=== PATIENT | male | born 1945 | race Caucasian/White ===

== ENCOUNTER → 2020-11-09 00:16 | Outpatient (CLI) | payer MEDICARE, SELFPAY ==
[2020-11-09 20:39] LABS: SARS-CoV-2 RNA PCR Negative
== END ==
PROVIDERS: PCP Internal Medicine; Visit Provider Internal Medicine Gastroenterology
DX: Z01.812 Encounter for preprocedural laboratory examination (principal); Z20.822 Contact with and (suspected) exposure to COVID-19
CPT/HCPCS: C9803; U0003; U0005

== ENCOUNTER 2020-11-12 01:39 | Day surgery (SDC) | payer MEDICARE, SELFPAY ==
[2020-11-05 15:25] VITALS: BMI 31.1
--- NOTE | 2020-11-12 09:49 | WPDGICN ---
Assessment and Plan Assessment and plan (1) History of colon polyps: Code(s): Z86.010 - Personal history of colonic polyps Status: Acute Assessment and Plan: Patient is a history of colon polyps most recently 6 or 7 years ago. Plan is for surveillance colonoscopy at this time and at intervals in the future. GI Consult Note Consult date/time: 11/12/20 09:49 HPI: Jai Nicole is a 75 year old male Presents for follow-up colonoscopy. Patient has a history of colon polyps most recently 2013. States his current weight appetite bowel movements are normal. He denies abdominal pain. He has had no bleeding. His family history is noncontributory. Review of Systems Review of Systems: All systems reviewed & are unremarkable except as noted in HPI and below PMFSH Social History Social History Smoking status: Current some day smoker Tobacco type: cigars Alcohol intake: current Drinks per week: 3 Substance use type: does not use Living arrangements: with family Spiritual care concerns: No Meds Home Medications and Allergies Home Medications Medication Instructions Recorded Confirmed Type aspirin 81 mg PO DAILY 11/05/20 11/05/20 History atorvastatin 40 mg PO DAILY 11/05/20 11/05/20 History lansoprazole [Prevacid] 15 mg PO DAILY 11/05/20 11/05/20 History lisinopril 20 mg PO DAILY 11/05/20 11/05/20 History sodium,potassium,mag sulfates See Rx Instructions .ROUTE 11/05/20 Rx [Suprep Bowel Prep Kit] .COMPLEX #1 ml Allergies Allergy/AdvReac Type Severity Reaction Status Date / Time No Known Allergies Allergy Unverified 06/23/15 20:44 Exam Narrative: Exam Narrative: Physical exam reveals patient to be alert. Vital signs stable. HEENT exam is unremarkable. Lungs are clear to auscultation and percussion. Heart is without murmur or extra sounds. Abdominal exam bowel sounds are present soft nontender with no organomegaly. Digital external rectal exam is normal.
[2020-11-12 09:52] VITALS: BP 139/73; PULSE 66; RESP 18; TEMP 36.6; O2SAT 99; BMI 29.0
[2020-11-12] MEDS: LACTATED RINGERS 1,000 ML 150 ML IV CONT (10:05)
--- NOTE | 2020-11-12 10:07 | WPDANESEPPF ---
Anes - Initial Pre Proc Eval Procedure: Operation Date: 11/12/20 11:00 Proposed Procedures p Screening Colonoscopy - German Mccarty MD Date/Time: 11/12/20 10:07 Surgeon: German Mccarty MD Pre Op Diagnosis: Neoplasm Screening Patient Data Age: 75 Gender: M Height: 5 ft 7 in Weight: 84.2 kg Last Vital Signs Temp 36.6 C 11/12/20 09:52 Pulse 66 11/12/20 09:52 Resp 18 11/12/20 09:52 BP 139/73 11/12/20 09:52 Pulse Ox 99 11/12/20 09:52 Allergies Allergy/AdvReac Type Severity Reaction Status Date / Time No Known Allergies Allergy Unverified 11/12/20 09:51 Home Medications Medication Instructions Recorded Confirmed Type aspirin 81 mg PO DAILY 11/05/20 11/05/20 History atorvastatin 40 mg PO DAILY 11/05/20 11/05/20 History lansoprazole [Prevacid] 15 mg PO DAILY 11/05/20 11/05/20 History lisinopril 20 mg PO DAILY 11/05/20 11/05/20 History sodium,potassium,mag sulfates See Rx Instructions .ROUTE 11/05/20 Rx [Suprep Bowel Prep Kit] .COMPLEX #1 ml Patient hx anesthesia problems: none Family hx anesthesia problems: none PMFSH Past Medical History Medical History CAD (coronary artery disease) GERD (gastroesophageal reflux disease) HTN (hypertension) Hyperlipidemia Smoker Social History Social History Smoking status: Current some day smoker Tobacco type: cigars Alcohol intake: current Drinks per week: 3 Substance use type: does not use Living arrangements: with family Spiritual care concerns: No Anes - Eval Final PreProcedure Day of Procedure 11/12/20 10:07 Patient weight: overweight Heart: regular rate and rhythm Lungs: clear to auscultation Airway: Mallampati scale class II Neurological: alert and oriented Last oral intake: >/= 8 hours ASA classification: III Emergent: no Anesthetic plan: proceed Anesthesia type and monitoring: general GIVS and standard monitoring Informed Consent: The patient's anesthetic plan and its attendant risks and benefits were discussed with the patient/family/POA. Questions were solicited and answers provided to the satisfaction of the patient/family/POA.
[2020-11-12 11:14] VITALS: BP 97/45; PULSE 60; RESP 17; O2SAT 94
[2020-11-12 11:24] VITALS: BP 109/72; PULSE 63; RESP 20; O2SAT 97
[2020-11-12 11:34] VITALS: BP 119/72; PULSE 60; RESP 20; O2SAT 98
== END 2020-11-12 12:07 | disposition home or self-care (01) ==
PROVIDERS: PCP Internal Medicine; Visit Provider Internal Medicine Gastroenterology
PROC: 0DJD8ZZ Inspection of Lower Intestinal Tract, Via Natural or Artificial Opening Endoscopic (ICD-10-PCS; CPT 45378; principal; 2020-11-12 11:00)
DX: Z12.11 Encounter for screening for malignant neoplasm of colon (principal); D12.3 Benign neoplasm of transverse colon; K57.30 Diverticulosis of large intestine without perforation or abscess without bleeding; K64.8 Other hemorrhoids; Z86.010 Personal history of colon polyps; F17.290 Nicotine dependence, other tobacco product, uncomplicated
CPT/HCPCS: 45385; 88305; C9803; J2704; J7120; U0003; U0005

== ENCOUNTER 2021-03-10 13:36 | Emergency (ER) | payer MEDICARE, SELFPAY ==
--- NOTE | ~2021-03-10 | XR_ITS ---
EXAMINATION: XR chest 2V EXAM DATE: 03/10/2021 14:21 INDICATION: Chest/left arm pain, high blood pressure. TECHNIQUE: Frontal and lateral projections of the chest obtained and reviewed. Comparison is made to prior examination from 06/23/2015. FINDINGS: The lungs are clear. There are no pleural effusions. The cardiomediastinal silhouette is within normal limits. There is no pneumothorax suspected. The bones and soft tissues are unremarkab le. IMPRESSION: No acute cardiopulmonary findings. Reviewed, dictated and finalized at location A.
[2021-03-10 13:46] VITALS: BP 160/70; PULSE 65; RESP 18; TEMP 36.5; O2SAT 99
--- NOTE | 2021-03-10 13:49 | ECG_ITS ---
Measurements Intervals [place] Rate: 59 P: 64 TX: 176 QRS: -69 QRSD: 128 T: 72 QT: 415 QTc: 414 Interpretive Statements SINUS BRADYCARDIA RSR' IN V1 OR V2, CONSIDER RIGHT VENTRICULAR HYPERTROPHY OR RIGHT VCD LEFT ANTERIOR FASCICULAR BLOCK ABNORMAL ECG Electronically Signed On 03-10-2021 21:04:36 CDT by Juan Sandra D.O.
[2021-03-10 13:59] LABS: Basophils Absolute Auto 0.1 K/mm3 (0.0-0.1); Eosinophils Absolute Auto 0.1 K/mm3 (0-0.3); Eosinophils Percent Auto 1.6 % (0-4.4); Hematocrit 49.1 % (42.0-52.0); Hemoglobin 16.3 g/dL (14.0-18.0); Immature Granulocyte Absolute 0.03 K/mm3 (0.00-0.031); Immature Granulocyte Percent A 0.4 % (0-0.5); Lymphocytes Absolute Auto 2.93 K/mm3 (0.9-3.2); Lymphocytes Percent Auto 35.2 % (18.3-44.2); Mean Corpuscular HGB Conc 33.2 g/dl (32-36); Mean Corpuscular Hemoglobin 34.2 pg (26-34); Mean Corpuscular Volume 102.9 fl (80-100); Mean Platelet Volume 9.9 fl (7.4-10.4); Monocytes Absolute Auto 0.6 K/mm3 (0.1-0.6); Monocytes Percent Auto 6.8 % (2.6-8.5); Neutrophils Absolute Auto 4.6 K/mm3 (1.3-6.7); Platelet Count Result 179 k/mm3 (150-375); Red Blood Count 4.77 M/mm3 (4.6-6.20); Red Cell Distribution Width 14.1 % (11.5-14.5); White Blood Count 8.3 K/mm3 (4.5-10.0)
[2021-03-10 14:08] LABS: Anion Gap 11 mmol/L (8-16); Blood Urea Nitrogen 14 mg/dL (9-20); Calcium 9.3 mg/dL (8.4-10.2); Carbon Dioxide 21 mmol/L (22-30); Chloride 108 mmol/L (98-107); Estimated CRCL calculation 50 ml/min; Estimated Glomerular Filt Rate > 60; Glucose 97 mg/dL (75-110); Potassium 4.5 mmol/L (3.4-5.0); Sodium 140 mmol/L (137-145)
[2021-03-10 14:15] LABS: Prothrombin Time 13.6 Seconds (11.1-14.7)
[2021-03-10 14:16] LABS: Partial Thromboplastin Time 26.4 SECONDS (22.3-36.8)
[2021-03-10 14:20] LABS: Troponin I < 0.012 ng/mL (0.000-0.034)
--- NOTE | 2021-03-10 16:20 | PC.NURSE ---
pt called to go back to a room and did not answer
--- NOTE | 2021-03-10 16:59 | PC.NURSE ---
pt called to be registered and did not answer
== END 2021-03-10 16:59 | disposition left against medical advice (07) ==
LOC: ANHED 17:01
PROVIDERS: Emergency Provider Emergency Medicine; PCP Internal Medicine
DX: M79.602 Pain in left arm (principal)
CPT/HCPCS: 36415; 71046; 80048; 84484; 85025; 85610; 85730; 93005; 99199

== ENCOUNTER 2024-03-17 15:00 | Observation (INO) | payer MEDICARE, SELFPAY ==
--- NOTE | ~2024-03-17 | NM_ITS ---
EXAMINATION: NM shanelle stress w perfusion DATE: 03/20/2024 12:41 INDICATION: Chest pain TECHNIQUE: Rest images were obtained following intravenous administration of 10.3 mCi Tc99m tetrofosm in (Myoview). The patient was infused intravenously with Lexiscan (Regadenoson). Then, 29.4 mCi Tc99m tetrofosmin (Myoview) was administered intravenously, and stress images were obtained initially in t he supine position with repeat post stress imaging obtained in the prone position. Data was reconstru cted into short axis and horizontal and vertical long axis SPECT images. Gated SPECT images were also obtained. COMPARISON: None. FINDINGS: There is diaphragmatic attenuation artifact along significant portions of the inferior hear t is upper lung the inferior wall on both the rest and post stress imaging obtained in the supine pos ition which normalizes on the post stress imaging obtained in the prone position. No definitive perfu ana defect on the prone post stress imaging to suggest ischemia or infarct. There is normal left juan tricular chamber size, wall motion and ejection fraction. Left ventricular ejection fraction measure s >70%. IMPRESSION: 1. Normal myocardial perfusion on post stress imaging obtained in the prone position. 2. Left ventricular ejection fraction measuring >70%. Reviewed, dictated and finalized at location A. IMPRESSION: 1. Normal myocardial perfusion on post stress imaging obtained in the prone pos ition. 2. Left ventricular ejection fraction measuring >70%.
--- NOTE | ~2024-03-17 | XR_ITS ---
EXAMINATION: XR chest 2V 03/17/2024 15:18 INDICATION: Chest pain PROCEDURE: 2 view chest COMPARISON: 03/10/2021 FINDINGS: The lungs are clear. The cardiomediastinal silhouette is within normal limits. There are no pleural effusions. There is no pneumothorax suspected. IMPRESSION: 1: NO ACUTE CARDIOPULMONARY DISEASE. Reviewed, dictated and finalized at location B.
--- NOTE | 2024-03-17 15:01 | ECG_ITS ---
Test Date: 2024-03-17 15:06:56 Measurements Intervals [place] Rate: 81 P: 66 DC: 159 QRS: -69 QRSD: 137 T: 67 QT: 386 QTc: 450 Interpretive Statements SINUS RHYTHM RIGHT BUNDLE BRANCH BLOCK [120+ ms QRS DURATION, UPRIGHT V1, 40+ ms S IN I/aVL/V4/V5/V6] LEFT ANTERIOR FASCICULAR BLOCK [QRS AXIS <= -45, QR IN I, RS IN II] LEFT VENTRICULAR HYPERTROPHY AND ST-T CHANGE [VOLTAGE CRITERIA PLUS ST/T ABNORMALITY] POSSIBLE ANTERIOR MYOCARDIAL INFARCTION , OF INDETERMINATE AGE [30 ms Q WAVE IN V3/V4, OR R < 0.2 mV IN V4] No previous ECG available for comparison Electronically Signed On 03-18-2024 15:52:30 CDT by Cade Kurtz M.D.
[2024-03-17 15:06] VITALS: BP 141/74; PULSE 91; RESP 20; TEMP 36.9; O2SAT 98
[2024-03-17 15:25] LABS: Basophils Absolute Auto 0.1 K/mm3 (0.0-0.1); Basophils Percent Auto 0.7 % (0.2-1.2); Eosinophils Absolute Auto 0.1 K/mm3 (0-0.3); Eosinophils Percent Auto 1.2 % (0-4.4); Hematocrit 45.9 % (42.0-52.0); Hemoglobin 16.2 g/dL (14.0-18.0); Immature Granulocyte Absolute 0.03 K/mm3 (0.00-0.031); Immature Granulocyte Percent A 0.3 % (0-0.5); Lymphocytes Absolute Auto 2.53 K/mm3 (0.9-3.2); Mean Corpuscular HGB Conc 35.3 g/dl (32-36); Mean Corpuscular Hemoglobin 35.5 pg (26-34); Mean Corpuscular Volume 100.7 fl (80-100); Mean Platelet Volume 8.8 fl (7.4-10.4); Monocytes Absolute Auto 0.8 K/mm3 (0.1-0.6); Monocytes Percent Auto 8.7 % (2.6-8.5); Neutrophils Absolute Auto 5.5 K/mm3 (1.3-6.7); Neutrophils Percent Auto 61.1 % (45.5-73.1); Platelet Count Result 152 k/mm3 (150-375); Red Blood Count 4.56 M/mm3 (4.6-6.20); Red Cell Distribution Width 13.7 % (11.5-14.5)
[2024-03-17 15:31] LABS: INR 1.1; Prothrombin Time 14.2 Seconds (11.1-14.7)
[2024-03-17 15:32] LABS: Partial Thromboplastin Time 28.5 Seconds (22.3-36.8)
[2024-03-17 15:40] LABS: Alanine Aminotransferase 46 U/L (6-50); Albumin Level 4.8 g/dL (3.5-5.1); Alkaline Phosphatase 95 U/L (38-126); Anion Gap 9 mmol/L (4-12); Aspartate Amino Transferase 41 U/L (17-59); Bilirubin,Total 0.9 mg/dL (0.2-1.3); Blood Urea Nitrogen 11 mg/dL (9-20); Calcium 9.4 mg/dL (8.4-10.2); Carbon Dioxide 23 mmol/L (22-30); Chloride 101 mmol/L (98-107); Estimated CRCL calculation 52 ml/min; Estimated Glomerular Filt Rate > 60; Glucose 88 mg/dL (65-110); Lipase 122 U/L (23-300); Potassium 4.4 mmol/L (3.4-5.0); Sodium 133 mmol/L (137-145)
[2024-03-17 15:52] LABS: Troponin I < 0.012 ng/mL (0.000-0.034)
--- NOTE | 2024-03-17 16:42 | ED.CHESTPAIN ---
HPI - Chest Pain General Chief Complaint: Chest Pain Stated Complaint: I think I'm having a heart attack. Time Seen by Provider: 03/17/24 16:32 History of Present Illness HPI narrative: Patient is a 78-year-old male with history of coronary artery disease, PCI x1 more than 20 years ago, hypertension, anxiety here with left-sided chest pain. Patient states that over the last couple of days he has had some decreased energy and feeling a bit more tired than usual. Today he was at rest and started noticing some left-sided shoulder and upper chest pain which radiated into his left arm. He states that it was associated with a tingling and heaviness sensation in his left arm. The pain only lasted for a few seconds and the tingling and heaviness in his arm lasted a bit longer. He notes that he is now asymptomatic. He denies any change with exertion. He denies any associated diaphoresis, nausea, shortness of breath. He does note that he felt quite anxious after the symptoms began and that he is predisposed to panic attacks and felt like he was having a panic attack after the symptoms began. He denies any recent cough, congestion, fever, chills. No recent travel, no lower extremity edema, no calf pain. 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 Related Data Home Medications Medication Instructions Recorded Confirmed aspirin 81 mg tablet 81 mg PO DAILY 11/05/20 03/17/24 atorvastatin 40 mg tablet 40 mg PO DAILY 11/05/20 03/17/24 lansoprazole 15 mg capsule,delayed 15 mg PO DAILY 11/05/20 03/17/24 release (Prevacid) lisinopril 20 mg tablet 20 mg PO DAILY 11/05/20 03/17/24 Allergies Allergy/AdvReac Type Severity Reaction Status Date / Time No Known Allergies Allergy Verified 03/17/24 21:14 Review of Systems Review of Systems: All systems reviewed & are unremarkable except as noted in HPI and below PMFSH Past Medical History Medical History CAD (coronary artery disease) GERD (gastroesophageal reflux disease) HTN (hypertension) Hyperlipidemia Smoker Family History Family History (Updated 03/17/24 @ 21:29 by Lexii Ramachandran RN) Mother Breast cancer Sibling History of blood clots Father Congestive heart failure Social History Social History Years smoked: 15 Smoking status: Current every day smoker Tobacco type: cigars Additional smoking assessment comments: 2 cigars/day Alcohol intake: current Drinks per week: 14 Substance use: current Substance use type: marijuana Other substance usage details: occasional marijuana Do You Feel Safe in your Home?: Yes Lack of Transportation: No Lack of Food: Never True Current Housing: I Have Housing Concerned About Future Housing: No Difficulty Paying Gas/Electric Bills: No Difficulty Paying for Meds: No Currently Unemployed: No Education: Decline to Answer Difficulty w/ Childcare or Family Care: No Living arrangements: with family Gender identity (if verbalized by the patient): Male Spiritual care concerns: No Exam Narrative: GENERAL: Well-appearing, well-nourished, and in no acute distress. HEAD: Normocephalic, atraumatic. EYES: PERRLA and EOMI. ENT: Nares clear. Mucous membranes moist. NECK: Supple. CHEST: Clear to auscultation. No respiratory distress. HEART: Regular rate and rhythm. Normal peripheral pulses. ABDOMEN: Soft, nontender, nondistended. EXTREMITIES: Normal range of motion. No edema. SKIN: Warm, dry, no rash. NEURO: No focal deficits. Alert and oriented x3. PSYCH: Normal mood and affect. Course Course Emergency Course: Chart review performed, patient here with left-sided chest pain that occurred this morning. Triage vitals grossly normal. Only prior visit in our system was for a colonoscopy 3 years ago. Patient seen evalua
[2024-03-17 16:45] VITALS: BP 137/93; PULSE 76; RESP 12; O2SAT 98
[2024-03-17] MEDS: ASPIRIN 81 MG CHEWABLE TABLET 324 MG PO (17:35)
--- NOTE | 2024-03-17 17:58 | ECG_ITS ---
Test Date: 2024-03-17 18:15:11 Measurements Intervals [place] Rate: 66 P: 67 NM: 192 QRS: -71 QRSD: 133 T: 60 QT: 403 QTc: 425 Interpretive Statements SINUS RHYTHM INTRAVENTRICULAR CONDUCTION DELAY [130+ ms QRS DURATION] POSSIBLE ANTEROLATERAL MYOCARDIAL INFARCTION , OF INDETERMINATE AGE [30 ms Q WAVE IN I/aVL/V3-V6] Compared to ECG 03/17/2024 15:06:56 No change compared to prior EKG Electronically Signed On 03-19-2024 12:42:56 CDT by Cade Kurtz M.D.
[2024-03-17 19:00] LABS: Influenza A QL RT-PCR Negative (Negative); Influenza B QL RT-PCR Negative (Negative); RSV RNA, RT-PCR Negative (Negative); SARS-CoV-2 RNA PCR Negative (Negative)
[2024-03-17 19:29] LABS: Troponin I < 0.012 ng/mL (0.000-0.034)
--- NOTE | 2024-03-17 19:44 | PM.IMHP ---
H&P: HPI History of Present Illness Date/Time: 03/17/24 19:44 Chief Complaint: chest pain Narrative: This is a 78-year-old male with past medical history significant for coronary artery disease status post PTCI, hypertension. Patient presents to the emergency room after having episode of chest pain while sitting at home with radiation to his shoulder and arm on the left side pain has subsided. denies any syncope, near syncope, shortness of breath, nausea, vomiting, abdominal pain, leg swelling, PND, orthopnea, dizziness, lightheadedness, No palpitations. Patient has been his usual state of health. Preliminary workup in the emergency room has been essentially nonrevealing. EXAMINATION: XR chest 2V 03/17/2024 15:18 INDICATION: Chest pain PROCEDURE: 2 view chest COMPARISON: 03/10/2021 FINDINGS: The lungs are clear. The cardiomediastinal silhouette is within normal limits. There are no pleural effusions. There is no pneumothorax suspected. IMPRESSION: 1: NO ACUTE CARDIOPULMONARY DISEASE. Review of Systems Review of Systems: Chest pain Constitutional: Constitutional: Denies chills, Denies fever(s), Denies malaise, Denies night sweats, Denies poor appetite and Denies weakness Eyes: Eyes: Denies change in vision ENT: Denies dysphagia, Denies vertigo, Denies dizziness and Denies odynophagia Cardiovascular: Cardiovascular: Reports chest pain, Denies leg edema, Denies lightheadedness, Reports radiating jaw, neck or arm pain and Denies palpitations Respiratory: Respiratory: Denies cough, Denies dyspnea and Denies wheezing Gastrointestinal: Gastrointestinal: Denies abdominal pain, Denies nausea and Denies vomiting Genitourinary: Genitourinary: Denies dysuria Musculoskeletal: Musculoskeletal: Denies myalgias Integumentary/Breasts: Skin/Breast: Denies rash Neurologic: Denies focal weakness and Denies Sensory deficit (Neuro) Psychiatric: Psychiatric: Reports no additional psychiatric complaints and Reports as per HPI Endocrine: Endocrine: Denies cold intolerance, Denies heat intolerance, Denies polyphagia, Denies polydipsia, Denies polyuria and Denies palpitations Hematologic/Lymphatic: Hematologic/Lymphatic: Reports no additional hematologic/lymphatic complaints and Reports as per HPI Allergic/Immunologic: Allergic/Immunologic: Reports no additional allergic/immunologic complaints and Reports as per HPI [facility] Past Medical History Medical History CAD (coronary artery disease) GERD (gastroesophageal reflux disease) HTN (hypertension) Hyperlipidemia Smoker Family History Family History (Updated 03/17/24 @ 21:29 by Lexii Ramachandran RN) Mother Breast cancer Sibling History of blood clots Father Congestive heart failure Social History Social History Years smoked: 15 Smoking status: Current every day smoker Tobacco type: cigars Additional smoking assessment comments: 2 cigars/day Alcohol intake: current Drinks per week: 3 Substance use type: does not use Living arrangements: with family Gender identity (if verbalized by the patient): Male Spiritual care concerns: No Meds Home Medications and Allergies Home Medications Medication Instructions Recorded Confirmed Type aspirin 81 mg tablet 81 mg PO DAILY 11/05/20 03/17/24 History atorvastatin 40 mg tablet 40 mg PO DAILY 11/05/20 03/17/24 History lansoprazole 15 mg capsule,delayed 15 mg PO DAILY 11/05/20 03/17/24 History release (Prevacid) lisinopril 20 mg tablet 20 mg PO DAILY 11/05/20 03/17/24 History Allergies Allergy/AdvReac Type Severity Reaction Status Date / Time No Known Allergies Allergy Verified 03/17/24 21:14 Vital Signs Vital Signs - 24 hr 03/17/24 15:06 03/17/24 16:45 03/17/24 16:46 Temperature 98.4 F Pulse Rate 91 76 Respiratory Rate 20 12 Blood Pressure 141/74 H 137/93 H Pulse Oximetry 98 98
[2024-03-17 20:08] VITALS: BP 134/90; PULSE 81; RESP 15; O2SAT 100
[2024-03-17 20:41] VITALS: PULSE 65
[2024-03-17 20:43] VITALS: BP 143/67; PULSE 65; RESP 16; TEMP 36.4; O2SAT 99
[2024-03-17 20:44] VITALS: BMI 26.4
--- NOTE | 2024-03-17 21:03 | ADMGEN ---
This patient, Jai Nicole, was admitted to IMU Room 205-01 on 03/17/24 at 2040. Patient/family oriented to hospital policies and general routines including ID bracelet, bed and alarms, visiting hours, pain management, procedures, bathroom and other care routines, personal items, smoking policy, room service/diet, and visiting hours. Information on how to activate the Rapid Response Team has been discussed. Patient/Family are encouraged to report perceived risks to care and to ask questions if they do not understand what they are told or what they should do.
[2024-03-17 22:00] VITALS: PULSE 57
[2024-03-17 22:18] LABS: Troponin I < 0.012 ng/mL (0.000-0.034)
[2024-03-18] VITALS (13 sets, daily range): BP systolic 112–137; BP diastolic 50–69; PULSE 52–86; RESP 15–21; TEMP 36.2–36.9; O2SAT 96–99
--- NOTE | 2024-03-18 06:00 | ECHO_ITS ---
Patient Info Name: Jai Nicole Age: 78 years : 1945 Gender: Male Ht: 67 in Wt: 168 lbs BSA: 1.91 m2 HR: 55 bpm BP: 112 / 57 mmHg Technical Quality: Good Exam Date: 03/18/2024 8:29 AM Exam Location: Echo Lab Patient Status: Outpatient Admit Date: 03/17/2024 Staff Ordering Physician: Megan Bond MD Ductfixing Plumber: Gomez Schulz RDCS Attending Provider: Daniela Crisostomo PA-C Exam Type: CA echo doppler color flow Study Info Indications - chest pain Complete two-dimensional, color flow and Doppler transthoracic echocardiogram is performed. Summary 1. Complete two-dimensional, color flow and Doppler transthoracic echocardiogram is performed. 2. Left ventricular chamber dimension is normal. 3. Left ventricular systolic function is normal, estimated at 55-60%. 4. The left ventricular diastolic function is grade I diastolic dysfunction. 5. Right ventricular chamber dimension is normal. 6. Right ventricular systolic function is normal. 7. There is mild aortic valve regurgitation. Left Ventricle Left ventricular chamber dimension is normal. Left ventricular systolic function is normal, estimated at 55-60%. There is no increased left ventricular wall thickness. Left ventricular septal wall motion is normal. The left ventricular diastolic function is grade I diastolic dysfunction. Right Ventricle Right ventricular chamber dimension is normal. Right ventricular systolic function is normal. Left Atria Left atrial chamber dimension is mildly enlarged. Right Atria Right atrial chamber dimension is normal. Aortic Valve The aortic valve is not well visualized. There is no aortic valve sclerosis. There is no aortic valve stenosis. There is mild aortic valve regurgitation. Pulmonic Valve The pulmonic valve is not well visualized. Mitral Valve The mitral valve has normal leaflets. There is no mitral valve stenosis. There is no mitral valve regurgitation. Tricuspid Valve The tricuspid valve leaflets are normal. There is no significant tricuspid valve stenosis. There is no tricuspid valve regurgitation. Pericardium/Pleural The pericardium appears normal. There is no pericardial effusion. Inferior Vena Cava Normal inferior vena cava with >50% collapse upon inspiration consistent with normal right atrial pressure, 5 mmHg. Aorta The aortic root size at the sinus of Valsalva is normal. The prox ascending aorta size is normal. Left Ventricular Outflow Tract Name Value Normal LVOT 2D LVOT Diameter 2.1 cm LVOT Doppler LVOT Peak Gradient 6 mmHg LVOT Mean Gradient 2 mmHg LVOT VTI 28 cm LVOT VTI/AV VTI Ratio 0.7 LVOT Stroke Volume 96 ml LVOT CO 5.4 l/min LVOT CI 2.8 l/min/m2 Pulmonic Valve Name Value Normal PV Doppler P
--- NOTE | 2024-03-18 09:18 | PM.IMPN ---
Progress Note: A&P Assessment and Plan (1) Chest pain: Qualifiers: Chest pain type: unspecified Qualified Code(s): R07.9 - Chest pain, unspecified Code(s): R07.9 - Chest pain, unspecified Status: Acute Assessment and Plan: Patient with history of CAD with PCI x1. No longer endorsing chest pain. - Troponin negative - EKG: SINUS RHYTHM, INTRAVENTRICULAR CONDUCTION DELAY [130+ ms QRS DURATION] POSSIBLE ANTEROLATERAL MYOCARDIAL INFARCTION , OF INDETERMINATE AGE [30 ms Q WAVE IN I/aVL/V3-V6] - Echo ordered - Cardiology consulted, plan for stress test wednesday. Patient will remain inpatient until that time. - Continue ASA, statin, and lisinopril - Tele - Monitor (2) HTN (hypertension): Code(s): I10 - Essential (primary) hypertension Status: Acute Assessment and Plan: Chronic, stable on home medications. - lisinopril 20 mg daily - Monitor (3) GERD (gastroesophageal reflux disease): Code(s): K21.9 - Gastro-esophageal reflux disease without esophagitis Status: Acute Assessment and Plan: Well controlled on home medications. - Pantoprazole 40 mg daily Time Spent With Patient Time with patient: 25 - 35 minutes Subjective Date/time seen: 03/18/24 09:18 Interval history: 78-year-old male with history of coronary artery disease, PCI x1 more than 20 years ago, hypertension, anxiety here with left-sided chest pain. He states the chest pain felt like a pulled muscle and radiated down his left arm. This lasted for about 20 minutes before resolving on its own. Patient notes that his prior [place] felt much different and described it as a heaviness with pain going into his left jaw, down his left arm with associated diaphoresis and nausea. Patient is pleasant lying comfortably in bed. He denies any chest pain at this time. He was evaluted by cardiology who plan for a stress test on wednesday. Patient will remain inpatient until that time. Patient is stable and able to move to a [facility] floor. He remains on aspirin, statin and lisinopril. He has no complaints. Review of Systems Review of Systems: All systems reviewed & are unremarkable except as noted in HPI and below Exam Narrative: AF HR 58 RR 16 SpO2 99 BP 115/56 General: male in no acute respiratory distress who is nontoxic appearing, lying semi recumbent in bed. HEENT: Normocephalic. Atraumatic. Pupils equal round reactive to light. Extraocular movement intact. Sclera clear and anicteric. No facial asymmetry. Neck: Neck was supple. No dominant adenopathy, thyromegaly or masses. 2+ carotid upstrokes without bruits. Chest: Lungs are clear to auscultation bilaterally. No wheezes or crackles. CV: Heart was regular rate and rhythm. S1/S2. No murmurs, gallops, or rubs. Abd: Abdomen was soft. Nontender. Nondistended. Positive bowel sounds. No organomegaly or masses. Ext: No clubbing, cyanosis, or edema. 2+ DP pulses bilaterally. Neuro: Patient is alert and oriented x4. Cranial nerves 2-12 are intact. Speech is clear. Psych: Normal mood and affect. Patient is pleasant and cooperative. Skin: Warm and dry. No rashes noted. Objective Data Vital Signs Vital Signs: Vital Signs - 24 hr 03/17/24 15:06 03/17/24 16:45 03/17/24 16:46 Temperature 98.4 F Pulse Rate 91 76 Respiratory Rate 20 12 Blood Pressure 141/74 H 137/93 H Pulse Oximetry 98 98 Oxygen Delivery Room Air Room Air 03/17/24 20:08 03/17/24 20:43 03/17/24 21:00 Temperature 97.6 F Pulse Rate 81 65 Respiratory Rate 15 16 Blood Pressure 134/90 143/67 H Pulse Oximetry 100 99 Oxygen Delivery Room Air 03/17/24 22:00 03/17/24 20:41 03/17/24 23:58 Temperature Pulse Rate 57 L 65 Respiratory Rate Blood Pressure Pulse Oximetry Oxygen Delivery Room Air 03/18/24 00:00 03/18/24 00:00 03/18/24 02:00 Temperature 97.3 F L Pulse Rate 55 L 86 54 L Respiratory Rate 18 Blood Pressure 115/50 L Pulse Oximetry 97 O
[2024-03-18] MEDS: lisinopriL 20 MG TABLET PO (09:19)
[2024-03-18] MEDS: ATORVASTATIN 40 MG TABLET PO (09:20)
[2024-03-18] MEDS: PANTOPRAZOLE 40 MG TABLET PO (09:20)
[2024-03-18] MEDS: ASPIRIN 81 MG CHEWABLE TABLET PO (09:20)
[2024-03-18 10:16] LABS: Basophils Absolute Auto 0.1 K/mm3 (0.0-0.1); Basophils Percent Auto 0.9 % (0.2-1.2); Eosinophils Absolute Auto 0.1 K/mm3 (0-0.3); Eosinophils Percent Auto 2.2 % (0-4.4); Hematocrit 46.2 % (42.0-52.0); Hemoglobin 16.3 g/dL (14.0-18.0); Immature Granulocyte Absolute 0.02 K/mm3 (0.00-0.031); Immature Granulocyte Percent A 0.3 % (0-0.5); Lymphocytes Absolute Auto 1.84 K/mm3 (0.9-3.2); Lymphocytes Percent Auto 31.7 % (18.3-44.2); Mean Corpuscular HGB Conc 35.3 g/dl (32-36); Mean Corpuscular Hemoglobin 35.6 pg (26-34); Mean Corpuscular Volume 100.9 fl (80-100); Mean Platelet Volume 9.4 fl (7.4-10.4); Monocytes Absolute Auto 0.6 K/mm3 (0.1-0.6); Monocytes Percent Auto 10.3 % (2.6-8.5); Neutrophils Absolute Auto 3.2 K/mm3 (1.3-6.7); Neutrophils Percent Auto 54.6 % (45.5-73.1); Platelet Count Result 156 k/mm3 (150-375); Red Blood Count 4.58 M/mm3 (4.6-6.20); Red Cell Distribution Width 13.8 % (11.5-14.5); White Blood Count 5.8 K/mm3 (4.5-10.0)
[2024-03-18 10:24] LABS: Alanine Aminotransferase 42 U/L (6-50); Albumin Level 4.5 g/dL (3.5-5.1); Alkaline Phosphatase 86 U/L (38-126); Anion Gap 8 mmol/L (4-12); Aspartate Amino Transferase 34 U/L (17-59); Bilirubin,Total 1.1 mg/dL (0.2-1.3); Blood Urea Nitrogen 10 mg/dL (9-20); Calcium 9.4 mg/dL (8.4-10.2); Carbon Dioxide 23 mmol/L (22-30); Chloride 105 mmol/L (98-107); Estimated CRCL calculation 52 ml/min; Estimated Glomerular Filt Rate > 60; Glucose 92 mg/dL (65-110); Potassium 4.5 mmol/L (3.4-5.0); Sodium 136 mmol/L (137-145)
--- NOTE | 2024-03-18 13:15 | PM.CNCAR ---
Assessment and Plan Assessment and plan (1) Chest pain: Qualifiers: Chest pain type: unspecified Qualified Code(s): R07.9 - Chest pain, unspecified Code(s): R07.9 - Chest pain, unspecified Status: Acute Plan Atypical chest pain with negative cardiac enzymes and no dynamic EKG changes in a patient with history of coronary artery disease and prior PCI Hypertension controlled Mixed dyslipidemia Continue aspirin statin and lisinopril Stress test Wednesday History of Present Illness History of Present Illness Consult date/time: 03/18/24 13:15 Reason For Visit: chest pain Narrative: 78-year-old male patient presents to the hospital with acute left arm pain extending to the left neck and left side of his face. Pain was moderate in severity lasted for minutes and was recurrent. Patient history of coronary artery disease and prior PCI 1998. He has no cardiac workup since then. Was admitted because of evaluation of chest pain and telemetry did not show any arrhythmia and cardiac enzymes has been negative so far. This morning he is chest pain-free. Review of Systems Review of Systems: All systems reviewed & are unremarkable except as noted in HPI and below PMFSH Past Medical History Medical History CAD (coronary artery disease) GERD (gastroesophageal reflux disease) HTN (hypertension) Hyperlipidemia Smoker Family History Family History (Updated 03/17/24 @ 21:29 by Lexii Ramachandran RN) Mother Breast cancer Sibling History of blood clots Father Congestive heart failure Social History Social History Years smoked: 15 Smoking status: Current every day smoker Tobacco type: cigars Additional smoking assessment comments: 2 cigars/day Alcohol intake: current Drinks per week: 14 Substance use: current Substance use type: marijuana Other substance usage details: occasional marijuana Do You Feel Safe in your Home?: Yes Lack of Transportation: No Lack of Food: Never True Current Housing: I Have Housing Concerned About Future Housing: No Difficulty Paying Gas/Electric Bills: No Difficulty Paying for Meds: No Currently Unemployed: No Education: Decline to Answer Difficulty w/ Childcare or Family Care: No Living arrangements: with family Gender identity (if verbalized by the patient): Male Spiritual care concerns: No Meds Home Medications and Allergies Home Medications Medication Instructions Recorded Confirmed Type aspirin 81 mg tablet 81 mg PO DAILY 11/05/20 03/17/24 History atorvastatin 40 mg tablet 40 mg PO DAILY 11/05/20 03/17/24 History lansoprazole 15 mg capsule,delayed 15 mg PO DAILY 11/05/20 03/17/24 History release (Prevacid) lisinopril 20 mg tablet 20 mg PO DAILY 11/05/20 03/17/24 History Allergies Allergy/AdvReac Type Severity Reaction Status Date / Time No Known Allergies Allergy Verified 03/17/24 21:14 Vital Signs Vital Signs - 24 hr 03/17/24 15:06 03/17/24 16:45 03/17/24 16:46 Temperature 36.9 C Pulse Rate 91 76 Respiratory Rate 20 12 Blood Pressure 141/74 H 137/93 H Pulse Oximetry 98 98 Oxygen Delivery Room Air Room Air 03/17/24 20:08 03/17/24 20:43 03/17/24 21:00 Temperature 36.4 C Pulse Rate 81 65 Respiratory Rate 15 16 Blood Pressure 134/90 143/67 H Pulse Oximetry 100 99 Oxygen Delivery Room Air 03/17/24 22:00 03/17/24 20:41 03/17/24 23:58 Temperature Pulse Rate 57 L 65 Respiratory Rate Blood Pressure Pulse Oximetry Oxygen Delivery Room Air 03/18/24 00:00 03/18/24 00:00 03/18/24 02:00 Temperature 36.3 C L Pulse Rate 55 L 86 54 L Respiratory Rate 18 Blood Pressure 115/50 L Pulse Oximetry 97 Oxygen Delivery 03/18/24 04:00 03/18/24 04:00 03/18/24 04:00 Temperature 36.6 C Pulse Rate 53 L 52 L Respiratory Rate 16 Blood Pressure 112/57 L Pulse Oximetry 97 Oxyge
--- NOTE | 2024-03-18 22:27 | PC.NURSE ---
This patient, Jai Nicole, was transferred to [[id number] ] on 03/18/24 at 2207. Personal belongings sent with patient. Report given to [Arnav QUINTANA ]. Appropriate documentation sent with patient.
[2024-03-19] VITALS (11 sets, daily range): BP systolic 114–136; BP diastolic 49–63; PULSE 50–66; RESP 16–18; TEMP 36.4–36.6; O2SAT 97–98
--- NOTE | 2024-03-19 07:06 | PM.IMPN ---
Progress Note: A&P Assessment and Plan (1) Chest pain: Qualifiers: Chest pain type: unspecified Qualified Code(s): R07.9 - Chest pain, unspecified Code(s): R07.9 - Chest pain, unspecified Status: Acute Assessment and Plan: Patient with history of CAD with PCI x1. No longer endorsing chest pain. - Troponin negative - EKG: SINUS RHYTHM, INTRAVENTRICULAR CONDUCTION DELAY [130+ ms QRS DURATION] POSSIBLE ANTEROLATERAL MYOCARDIAL INFARCTION , OF INDETERMINATE AGE [30 ms Q WAVE IN I/aVL/V3-V6] - Echo: LVEF 55-60 and grade I diastolic dysfunction - Cardiology consulted, plan for stress test Wednesday. Patient will remain inpatient until that time. - Continue ASA, statin, and lisinopril - Tele - Monitor (2) HTN (hypertension): Code(s): I10 - Essential (primary) hypertension Status: Acute Assessment and Plan: Chronic, stable on home medications. - lisinopril 20 mg daily - Monitor (3) GERD (gastroesophageal reflux disease): Code(s): K21.9 - Gastro-esophageal reflux disease without esophagitis Status: Acute Assessment and Plan: Well controlled on home medications. - Pantoprazole 40 mg daily Time Spent With Patient Time with patient: 25 - 35 minutes Subjective Date/time seen: 03/19/24 07:06 Interval history: 78-year-old male with history of coronary artery disease, PCI x1 more than 20 years ago, hypertension, anxiety here with left-sided chest pain. He states the chest pain felt like a pulled muscle and radiated down his left arm. This lasted for about 20 minutes before resolving on its own. Patient notes that his prior [place] felt much different and described it as a heaviness with pain going into his left jaw, down his left arm with associated diaphoresis and nausea. Patient is pleasant lying comfortably in bed. He continues to deny chest pain, shortness of breath, nausea/vomiting and changes in bowel/bladder. Tele monitor reviewed, no concern. He remains inpatient for a stress test tomorrow. He is ambulating throughout his room without issues, vitals stable, labs unremarkable. Review of Systems Review of Systems: All systems reviewed & are unremarkable except as noted in HPI and below Exam Narrative: AF HR 60 RR 18 SpO2 98 BP 114/49 General: male in no acute respiratory distress who is nontoxic appearing, lying semi recumbent in bed. HEENT: Normocephalic. Atraumatic. Pupils equal round reactive to light. Extraocular movement intact. Sclera clear and anicteric. No facial asymmetry. Neck: Neck was supple. No dominant adenopathy, thyromegaly or masses. 2+ carotid upstrokes without bruits. Chest: Lungs are clear to auscultation bilaterally. No wheezes or crackles. CV: Heart was regular rate and rhythm. S1/S2. No murmurs, gallops, or rubs. Abd: Abdomen was soft. Nontender. Nondistended. Positive bowel sounds. No organomegaly or masses. Ext: No clubbing, cyanosis, or edema. 2+ DP pulses bilaterally. Neuro: Patient is alert and oriented x4. Cranial nerves 2-12 are intact. Speech is clear. Psych: Normal mood and affect. Patient is pleasant and cooperative. Skin: Warm and dry. No rashes noted. Objective Data Vital Signs Vital Signs: Vital Signs - 24 hr 03/18/24 07:33 03/18/24 08:00 03/18/24 08:00 Temperature 97.2 F L Pulse Rate 55 L 54 L Respiratory Rate 15 Blood Pressure 137/69 Pulse Oximetry 99 Oxygen Delivery Room Air 03/18/24 10:00 03/18/24 11:37 03/18/24 12:00 Temperature 98.3 F Pulse Rate 58 L 58 L Respiratory Rate 16 Blood Pressure 115/56 L Pulse Oximetry 99 Oxygen Delivery Room Air 03/18/24 12:00 03/18/24 14:00 03/18/24 15:01 Temperature 98.3 F Pulse Rate 67 62 55 L Respiratory Rate 21 H Blood Pressure 120/56 L Pulse Oximetry 96 Oxygen Delivery 03/18/24 16:00 03/18/24 20:00 03/18/24 20:00 Temperature 98.4 F Pulse Rate 55 L 54 L Respiratory Rate 16 Blood Pressure 113/59 L
[2024-03-19 08:03] LABS: Basophils Absolute Auto 0.1 K/mm3 (0.0-0.1); Basophils Percent Auto 1.2 % (0.2-1.2); Eosinophils Absolute Auto 0.2 K/mm3 (0-0.3); Eosinophils Percent Auto 2.5 % (0-4.4); Hematocrit 45.1 % (42.0-52.0); Hemoglobin 15.6 g/dL (14.0-18.0); Immature Granulocyte Absolute 0.02 K/mm3 (0.00-0.031); Immature Granulocyte Percent A 0.3 % (0-0.5); Lymphocytes Absolute Auto 2.17 K/mm3 (0.9-3.2); Lymphocytes Percent Auto 35.9 % (18.3-44.2); Mean Corpuscular HGB Conc 34.6 g/dl (32-36); Mean Corpuscular Hemoglobin 35.1 pg (26-34); Mean Corpuscular Volume 101.3 fl (80-100); Mean Platelet Volume 9.4 fl (7.4-10.4); Monocytes Absolute Auto 0.7 K/mm3 (0.1-0.6); Monocytes Percent Auto 10.8 % (2.6-8.5); Neutrophils Percent Auto 49.3 % (45.5-73.1); Platelet Count Result 142 k/mm3 (150-375); Red Blood Count 4.45 M/mm3 (4.6-6.20); Red Cell Distribution Width 13.6 % (11.5-14.5)
[2024-03-19 08:12] LABS: Alanine Aminotransferase 36 U/L (6-50); Albumin Level 3.9 g/dL (3.5-5.1); Alkaline Phosphatase 74 U/L (38-126); Anion Gap 5 mmol/L (4-12); Aspartate Amino Transferase 30 U/L (17-59); Bilirubin,Total 0.9 mg/dL (0.2-1.3); Blood Urea Nitrogen 11 mg/dL (9-20); Calcium 9.2 mg/dL (8.4-10.2); Carbon Dioxide 24 mmol/L (22-30); Chloride 106 mmol/L (98-107); Estimated CRCL calculation 52 ml/min; Estimated Glomerular Filt Rate > 60; Glucose 86 mg/dL (65-110); Potassium 4.3 mmol/L (3.4-5.0); Sodium 135 mmol/L (137-145)
[2024-03-19] MEDS: ASPIRIN 81 MG CHEWABLE TABLET PO (09:06)
[2024-03-19] MEDS: ATORVASTATIN 40 MG TABLET PO (09:06)
[2024-03-19] MEDS: lisinopriL 20 MG TABLET PO (09:06)
[2024-03-19] MEDS: PANTOPRAZOLE 40 MG TABLET PO (09:06)
--- NOTE | 2024-03-19 11:38 | PM.PNCARD ---
Progress Note: A&P Assessment and Plan (1) Chest pain: Qualifiers: Chest pain type: unspecified Qualified Code(s): R07.9 - Chest pain, unspecified Code(s): R07.9 - Chest pain, unspecified Status: Acute Plan Atypical chest pain with negative cardiac enzymes and no dynamic EKG changes Hypertension controlled Mixed dyslipidemia Plan Stress test tomorrow Aspirin Continue lisinopril Continue statin Subjective Date/time seen: 03/19/24 11:38 Interval history: No acute events Review of Systems Review of Systems: All systems reviewed & are unremarkable except as noted in HPI and below Exam Const: General: comfortable and no acute distress Other: Able to lie flat HENMT: Face/Nose/Sinus: Normal nares present and no epistaxis Mouth: Yes moist mucous membranes Eyes: Sclera: sclerae normal Pupils: Equal, round and reactive pupils present Neck: Neck: supple and no JVD Carotids: no bruits Resp: Auscultation: clear to auscultation bilaterally and lung sounds not diminished Other: No chest wall tenderness Cardio: Rate: regular rate Rhythm: regular rhythm Heart sounds: no gallops, no murmurs and no rubs GI: GI Palp: Yes Soft to palpation and No Tenderness to palpation present (GI) Auscultation: normal bowel sounds Skin: General skin exam: normal color, rashes and/or lesions noted and no erythema Other: Warm Neuro: Cranial nerves: Yes Equal, round and reactive pupils present Speech: normal speech Other: No obvious focal deficit or facial asymmetry Extrem: General: no edema Other: Normal capillary refills Intact distal pulses. Objective Data Vital Signs Vital Signs: Vital Signs - 24 hr 03/18/24 12:00 03/18/24 12:00 03/18/24 14:00 Temperature Pulse Rate 67 62 Respiratory Rate Blood Pressure Pulse Oximetry Oxygen Delivery Room Air 03/18/24 15:01 03/18/24 16:00 03/18/24 20:00 Temperature 36.8 C 36.9 C Pulse Rate 55 L 55 L 54 L Respiratory Rate 21 H 16 Blood Pressure 120/56 L 113/59 L Pulse Oximetry 96 97 Oxygen Delivery 03/18/24 20:00 03/18/24 20:00 03/19/24 04:00 Temperature Pulse Rate 55 L 50 L Respiratory Rate Blood Pressure Pulse Oximetry Oxygen Delivery Room Air 03/19/24 00:00 03/19/24 08:03 03/19/24 09:06 Temperature 36.6 C Pulse Rate 60 52 L Respiratory Rate 18 18 Blood Pressure 114/49 L Pulse Oximetry 98 98 Oxygen Delivery Room Air 03/19/24 08:00 Temperature 36.4 C Pulse Rate 64 Respiratory Rate 18 Blood Pressure 136/61 Pulse Oximetry 98 Oxygen Delivery Intake/Output Intake/Output: Intake & Output 03/16/24 03/17/24 03/18/24 03/19/24 23:59 23:59 23:59 23:59 Intake Total 1050 120 Output Total 1800 0 Balance -750 120 Meds/Results Medications: Active Medications Generic Name Dose Route Start Last Admin Trade Name Freq PRN Reason Stop Dose Admin Aspirin 81 mg 03/18/24 09:00 03/19/24 09:06 Aspirin 81 Mg Chewable Tablet PO 81 mg DAILY DAVID Administration Atorvastatin Calcium 40 mg 03/18/24 09:00 03/19/24 09:06 Atorvastatin 40 Mg Tablet PO 40 mg DAILY DAVID Administration Lisinopril 20 mg 03/18/24 09:00 03/19/24 09:06 Lisinopril 20 Mg Tablet PO 20 mg DAILY DAVID Administration Pantoprazole Sodium 40 mg 03/18/24 09:00 03/19/24 09:06 Pantoprazole 40 Mg Tablet PO 40 mg QAM DAVID Administration Perflutren Lipid Microsphere 0 ml 03/17/24 21:08 Perflutren Lipid Microspheres 1.5 Ml Vial Diluted To 10 Ml Total Volume IV PUSH 03/20/24 21:08 ONCE PRN adequate visualization Protocol Radiology Results: ITS Impressions Chest X-Ray 03/17/24 15:20 IMPRESSION: 1: NO ACUTE CARDIOPULMONARY DISEASE. Labs Labs: Laboratory Results - last 24 hr 03/19/24 07:44 WBC 6.0 RBC 4.45 L Hgb 15.6 Hct 45.1 MCV 101.3 H MCH 35.1 H MCHC 34.6 RDW
[2024-03-20] VITALS (8 sets, daily range): BP systolic 114–136; BP diastolic 59–64; PULSE 51–81; RESP 16–18; TEMP 35.9–36; O2SAT 97–99
--- NOTE | 2024-03-20 | EST_ITS ---
Patient Info Name: Jai Nicole Age: 78 years : 1945 Gender: Male Ht: 67 in Wt: 174 lbs BSA: 1.95 m2 HR: 59 bpm BP: 140 / 81 mmHg Heart Rhythm: Sinus Rhythm Exam Date: 03/20/2024 11:25 AM Exam Location: Echo Lab Patient Status: Inpatient Admit Date: 03/17/2024 Staff Ordering Physician: Daniela Crisostomo PA-C Attending Provider: Daniela Crisostomo PA-C Nurse: Carolin Seo APN Exam Type: CA stress shanelle w NM Study Info Indications R07.89 - Other chest pain A regadenoson stress test was performed. Summary 1. Sinus rhythm with incomplete left bundle branch block. 2. No ST or T-wave abnormalities seen following Lexiscan injection. 3. Clinically and electrocardiographically uneventful Lexiscan stress test. 4. Myocardial perfusion imaging exam to be reported by Radiology. Protocol: Lexiscan Stress ECG Details Stage: REST Duration (min): 1 min : 38 sec HR (bpm): 60 SBP (mmHg): 140 DBP (mmHg): 81 Stage: REST Duration (min): 10 min : 25 sec HR (bpm): 57 SBP (mmHg): 140 DBP (mmHg): 81 Stage: STAGE 1 Duration (min): 1 min : 0 sec HR (bpm): 63 SBP (mmHg): 141 DBP (mmHg): 82 Stage: RECOVERY Duration (min): 1 min : 0 sec HR (bpm): 86 SBP (mmHg): 141 DBP (mmHg): 82 Stage: RECOVERY Duration (min): 2 min : 0 sec HR (bpm): 94 SBP (mmHg): 141 DBP (mmHg): 82 Stage: RECOVERY Duration (min): 3 min : 0 sec HR (bpm): 90 SBP (mmHg): 168 DBP (mmHg): 77 Stage: RECOVERY Duration (min): 3 min : 24 sec HR (bpm): 72 SBP (mmHg): 168 DBP (mmHg): 77 Rest HR: 57 bpm Peak HR: 95 bpm Rest Sys BP: 140 mmHg Peak Sys BP: 168 mmHg Max Pred HR: 144 bpm % Max Pred HR: 66 % Target HR: 122 bpm Max RPP: 15,960 bpm*mmHg Termination Reason: Completed protocol Total Time: 1 min : 0 sec Rest Portillo BP: 81 mmHg Peak Portillo BP: 77 mmHg Total Dose: 0.4 mg Resting ECG Sinus rhythm with incomplete left bundle branch block. Stress ECG No ST or T-wave abnormalities seen following Lexiscan injection. Report Signatures
[2024-03-20 05:16] LABS: Basophils Absolute Auto 0.1 K/mm3 (0.0-0.1); Basophils Percent Auto 0.7 % (0.2-1.2); Eosinophils Absolute Auto 0.1 K/mm3 (0-0.3); Eosinophils Percent Auto 2.1 % (0-4.4); Hematocrit 46.7 % (42.0-52.0); Hemoglobin 16.2 g/dL (14.0-18.0); Immature Granulocyte Absolute 0.03 K/mm3 (0.00-0.031); Immature Granulocyte Percent A 0.4 % (0-0.5); Lymphocytes Absolute Auto 2.34 K/mm3 (0.9-3.2); Lymphocytes Percent Auto 34.8 % (18.3-44.2); Mean Corpuscular HGB Conc 34.7 g/dl (32-36); Mean Corpuscular Hemoglobin 35.3 pg (26-34); Mean Corpuscular Volume 101.7 fl (80-100); Mean Platelet Volume 9.4 fl (7.4-10.4); Monocytes Absolute Auto 0.6 K/mm3 (0.1-0.6); Monocytes Percent Auto 9.2 % (2.6-8.5); Neutrophils Absolute Auto 3.6 K/mm3 (1.3-6.7); Neutrophils Percent Auto 52.8 % (45.5-73.1); Platelet Count Result 154 k/mm3 (150-375); Red Blood Count 4.59 M/mm3 (4.6-6.20); Red Cell Distribution Width 13.3 % (11.5-14.5); White Blood Count 6.7 K/mm3 (4.5-10.0)
[2024-03-20 05:32] LABS: Alanine Aminotransferase 42 U/L (6-50); Albumin Level 4.3 g/dL (3.5-5.1); Alkaline Phosphatase 77 U/L (38-126); Anion Gap 5 mmol/L (4-12); Aspartate Amino Transferase 33 U/L (17-59); Bilirubin,Total 0.8 mg/dL (0.2-1.3); Blood Urea Nitrogen 12 mg/dL (9-20); Calcium 9.4 mg/dL (8.4-10.2); Carbon Dioxide 25 mmol/L (22-30); Chloride 105 mmol/L (98-107); Estimated CRCL calculation 47 ml/min; Estimated Glomerular Filt Rate > 60; Glucose 93 mg/dL (65-110); Sodium 135 mmol/L (137-145)
[2024-03-20] MEDS: lisinopriL 20 MG TABLET PO (12:32)
[2024-03-20] MEDS: ATORVASTATIN 40 MG TABLET PO (12:32)
[2024-03-20] MEDS: PANTOPRAZOLE 40 MG TABLET PO (12:32)
[2024-03-20] MEDS: ASPIRIN 81 MG CHEWABLE TABLET PO (12:32)
--- NOTE | 2024-03-20 12:44 | PM.PNCARD ---
Progress Note: A&P Assessment and Plan (1) Chest pain: Qualifiers: Chest pain type: unspecified Qualified Code(s): R07.9 - Chest pain, unspecified Code(s): R07.9 - Chest pain, unspecified Status: Acute Plan Atypical chest pain with negative cardiac enzymes and no dynamic EKG changes Hypertension controlled Mixed dyslipidemia Plan Lexiscan stress test today negative for any ischemia. EF 70% Aspirin Continue lisinopril Continue statin OK for discharge from a cardiac perspective. Subjective Date/time seen: 03/20/24 12:44 Interval history: Cardiology follow up for chest pain Feeling well today. No recurrent chest pain. No complaints. Review of Systems Review of Systems: All systems reviewed & are unremarkable except as noted in HPI and below Exam Const: General: comfortable and no acute distress Other: Able to lie flat HENMT: Face/Nose/Sinus: Normal nares present and no epistaxis Mouth: Yes moist mucous membranes Eyes: Sclera: sclerae normal Pupils: Equal, round and reactive pupils present Neck: Neck: supple and no JVD Carotids: no bruits Resp: Auscultation: clear to auscultation bilaterally and lung sounds not diminished Other: No chest wall tenderness Cardio: Rate: regular rate Rhythm: regular rhythm Heart sounds: no gallops, no murmurs and no rubs GI: Auscultation: normal bowel sounds Skin: General skin exam: normal color, rashes and/or lesions noted and no erythema Other: Warm Neuro: Cranial nerves: Yes Equal, round and reactive pupils present Speech: normal speech Other: No obvious focal deficit or facial asymmetry Extrem: General: no edema Other: Normal capillary refills Intact distal pulses. Objective Data Vital Signs Vital Signs: Vital Signs - 24 hr 03/19/24 16:00 03/19/24 16:03 03/19/24 19:27 Temperature 36.4 C Pulse Rate 64 56 L 56 L Respiratory Rate 18 18 Blood Pressure 114/58 L Pulse Oximetry 97 97 Oxygen Delivery Room Air Fraction of Inspired Oxygen 03/19/24 19:29 03/19/24 20:00 03/20/24 00:00 Temperature 36.6 C Pulse Rate 60 58 L 54 L Respiratory Rate 16 Blood Pressure 122/63 Pulse Oximetry 97 Oxygen Delivery Fraction of Inspired Oxygen 03/20/24 04:00 03/20/24 08:00 03/20/24 08:21 Temperature Pulse Rate 51 L 58 L Respiratory Rate Blood Pressure Pulse Oximetry 97 Oxygen Delivery Room Air Fraction of Inspired Oxygen 21 03/20/24 08:44 03/20/24 08:27 03/20/24 12:00 Temperature 36.0 C L Pulse Rate 60 81 Respiratory Rate 17 18 Blood Pressure 114/59 L Pulse Oximetry 98 98 Oxygen Delivery Room Air Fraction of Inspired Oxygen Intake/Output Intake/Output: Intake & Output 03/17/24 03/18/24 03/19/24 03/20/24 23:59 23:59 23:59 23:59 Intake Total 1050 1082 250 Output Total 1800 0 0 Balance -750 1082 250 Meds/Results Medications: Active Medications Generic Name Dose Route Start Last Admin Trade Name Freq PRN Reason Stop Dose Admin Aspirin 81 mg 03/18/24 09:00 03/20/24 12:32 Aspirin 81 Mg Chewable Tablet PO 81 mg DAILY DAVID Administration Atorvastatin Calcium 40 mg 03/18/24 09:00 03/20/24 12:32 Atorvastatin 40 Mg Tablet PO 40 mg DAILY DAVID Administration Lisinopril 20 mg 03/18/24 09:00 03/20/24 12:32 Lisinopril 20 Mg Tablet PO 20 mg DAILY DAVID Administration Pantoprazole Sodium 40 mg 03/18/24 09:00 03/20/24 12:32 Pantoprazole 40 Mg Tablet PO 40 mg QAM DAVID Administration Perflutren Lipid Microsphere 0 ml 03/17/24 21:08 Perflutren Lipid Microspheres 1.5 Ml Vial Diluted To 10 Ml Total Volume IV PUSH 03/20/24 21:08 ONCE PRN adequate visualization Protocol Radiology Results: ITS Impressions Chest X-Ray 03/17/24 15:20 IMPRESSION: 1: NO ACUTE CARDIOPULMONARY DISEASE. Labs Labs: Laboratory Results - last 24 hr
--- NOTE | 2024-03-20 14:46 | PM.DS ---
DS: Admitting Diagnosis Discharge Date 03/20/24 Admitting Diagnosis Chest pain Hypertension GERD DS: Discharge Diagnosis Discharge Diagnosis (1) Chest pain: Qualifiers: Chest pain type: unspecified Qualified Code(s): R07.9 - Chest pain, unspecified Code(s): R07.9 - Chest pain, unspecified Status: Acute (2) HTN (hypertension): Code(s): I10 - Essential (primary) hypertension Status: Acute (3) GERD (gastroesophageal reflux disease): Code(s): K21.9 - Gastro-esophageal reflux disease without esophagitis Status: Acute DS: Summary Hospital Course Reason for hospitalization: Chest pain Hypertension GERD Hospital Course: 78-year-old male with history of coronary artery disease, PCI x1 more than 20 years ago, hypertension, anxiety here with left-sided chest pain. He states the chest pain felt like a pulled muscle and radiated down his left arm. This lasted for about 20 minutes before resolving on its own. Patient notes that his prior [place] felt much different and described it as a heaviness with pain going into his left jaw, down his left arm with associated diaphoresis and nausea. Patient had negative cardiac enzymes, no changes on EKG. Echo with LVEF 55-60 and grade I diastolic dysfunction. Cardiology consulted. Patient remained inpatient to obtain a stress test per cardiology. Stress test negative for any ischemia. Prior to discharge patient denies chest pain, shortness of breath, and palpitations. Patient will continue his home medications as prescribed and follow up with his PCP and cardiology as scheduled. Patient discharged home in stable condition. Status at Discharge Functional status at discharge: independent ambulation Time Spent with Patient Time attestation: Total time spent providing and/or coordinating discharge services: Time spent: Greater than 30 minutes Exam Narrative: AF HR 66 RR 16 SpO2 99 BP 136/64 General: male in no acute respiratory distress who is nontoxic appearing, lying semi recumbent in bed. HEENT: Normocephalic. Atraumatic. Pupils equal round reactive to light. Extraocular movement intact. Sclera clear and anicteric. No facial asymmetry. Neck: Neck was supple. No dominant adenopathy, thyromegaly or masses. 2+ carotid upstrokes without bruits. Chest: Lungs are clear to auscultation bilaterally. No wheezes or crackles. CV: Heart was regular rate and rhythm. S1/S2. No murmurs, gallops, or rubs. Abd: Abdomen was soft. Nontender. Nondistended. Positive bowel sounds. No organomegaly or masses. Ext: No clubbing, cyanosis, or edema. 2+ DP pulses bilaterally. Neuro: Patient is alert and oriented x4. Cranial nerves 2-12 are intact. Speech is clear. Psych: Normal mood and affect. Patient is pleasant and cooperative. Skin: Warm and dry. No rashes noted. DS: Data Data Completed and Pending Completed studies during hospitalization: Lexiscan stress test Chest XR Chest XR Labs on day of discharge: Labs from last 24 hours 03/20/24 04:41 WBC 6.7 RBC 4.59 L Hgb 16.2 Hct 46.7 MCV 101.7 H MCH 35.3 H MCHC 34.7 RDW 13.3 Plt Count 154 MPV 9.4 Immature Gran % (Auto) 0.4 Neut % (Auto) 52.8 Lymph % (Auto) 34.8 [place] % (Auto) 9.2 H Eos % (Auto) 2.1 Baso % (Auto) 0.7 Lymph # (Auto) 2.34 [place] # (Auto) 0.6 Eos # (Auto) 0.1 Baso # (Auto) 0.1 Abs Immat Gran (auto) 0.03 Absolute Neuts (auto) 3.6 Absolute Nucleated RBC 0.000 Nucleated RBC % 0.0 Sodium 135 L Potassium 4.0 Chloride 105 Carbon Dioxide 25 Anion Gap 5 BUN 12 Creatinine 1.10 Estim Creat Clear Calc 47 Estimated GFR > 60 Glucose 93 Calcium 9.4 Total Bilirubin 0.8 AST 33 ALT 42 Alkaline Phosphatase 77 Total Protein 7.0 Albumin 4.3 Discharge Plan Discharge Attending physician on discharge: Ayden Wang Consulting providers: Cade Kurtz Discharging Clinician: Daniela Crisostomo Anticipated Discharge Date/Time:
== END 2024-03-20 15:10 | disposition home or self-care (01) ==
LOC: ANHED 20:34 → ANHIMU 21:05 → ANH2MED 03-20 13:15 → ANHIMU 03-21 07:23
PROVIDERS: Emergency Medicine; Admitting Provider Internal Medicine; Emergency Provider Student in an Organized Health Care Education/Training Program; PCP Internal Medicine; Visit Provider Student in an Organized Health Care Education/Training Program
DX: R07.89 Other chest pain (principal); I10 Essential (primary) hypertension; I44.7 Left bundle-branch block, unspecified; I25.10 Atherosclerotic heart disease of native coronary artery without angina pectoris; E78.2 Mixed hyperlipidemia; K21.9 Gastro-esophageal reflux disease without esophagitis; F17.290 Nicotine dependence, other tobacco product, uncomplicated; F12.90 Cannabis use, unspecified, uncomplicated; Z79.82 Long term (current) use of aspirin; Z20.822 Contact with and (suspected) exposure to COVID-19
CPT/HCPCS: 36415; 71046; 78452; 80053; 83690; 84484; 85025; 85610; 85730; 87637; 93005; 93017; 93306; 99285; A9270; A9502; G0378; J2785

== ENCOUNTER 2025-04-13 10:12 | Outpatient (CLI) | payer MEDICARE, SELFPAY ==
--- OUTSIDE RECORDS SUMMARY | 2025-04-13 10:21 | XMS_ITS | Clinical Summary ---
Author Organization [facility] Address [facility] [place] [address] Care Team Providers Care Saw Operator Name Role Phone Papito Perkins MD Unavailable Jose Lay MD Primary Care Provider [phone] Social History Tobacco Use Types Packs/Day Years Used Date Smoking Tobacco: Never Assessed Sex and Gender Information Value Date Recorded Sex Assigned at Not on file Legal Sex Male 5:19 PM CDT Gender Identity Not on file Sexual Orientation Not on file Plan of Treatment Health Maintenance Due Date Last Done Comments Hepatitis C 1963 DTaP, Tdap and Td Vaccines ( 1 - Tdap) 1966 Pneumococcal Vaccine: 50+ Ye ars (1 of 1 - PCV) 1997 Zoster Vaccines (1 of 2) 1997 RSV Immunization or 60+ Years (1 - 1-dose 75+ series) 2022 COVID-19 Vaccine ( - 2023-2 5 season) 2024 Meningococcal B Vaccine Aged Out No l onger eligible based on patient's age to complete this topic Meningococcal Vaccine Aged Out No kush kt eligible based on patient's age to complete this topic RSV Immunizations Under 20 Months Aged Out No longer eligible based on patient's age to complete this topic Care Teams Saw Operator Relationship Specialty Start Date End Date Jose Lay MD [facility]. [address] [place], [place] [phone] PCP - General INTERNAL MEDICINE 07/06/17 Papito Perkins MD [facility]. [address] [place], [place] [phone] Vascular/Ex Chef VASCULAR SURGERY 06/30/17
--- OUTSIDE RECORDS SUMMARY | 2025-04-13 10:21 | XMS_ITS | Data Portability ---
Author Organization [facility] Kaylee Address [address] [facility] [place] [address] Care Team Providers Care Data Entry Associate Name Role Phone MARIO LAY Primary Care Provider [phone] Assessment Encounter Date Assessment Date Assessment LastModified by Organization Details LastModified Time 07/27/2024 07/27/2024 flu shot today. Blood pressure is well controlled we will continue current therapy diagnosis and assessment and plan follow up in 6 months [email or web address] Not available 08/05/2024 20:40:39 09/25/2024 09/25/2024 we will continue current therapy blood work has been ordered healthy lifestyle care instructions. Not interested in any screenings or immunizations at this time. We will follow up in 4 months Not available 10/07/2024 22:48:46 01/29/2025 01/29/2025 Continue current therapy follow up with wa in 4 months all questions answered Not available 01/29/2025 13:38:47 03/14/2025 03/14/2025 Signs and symptoms of incarceration discussed surgical referral versus observation offered right now he wants to just going to wait and see again if he develops worsening pain or signs or symptoms of incarceration he will go to the hospital [email or web address] Not available 03/14/2025 21:51:39 Plan of Treatment Reminders Order Date Submit Date Provider Last Modified By Organization Details Last Modified Time Details Appointments ANY 15 2024 10:15A M Mario Lay MD Not available Not available Not available Lab PSA, serum or plasma 2024 025 [facility], [address], [place], [address], 02/13/2025 12:53:50 lipid panel, serum 2024 025 [email or web address] ([place]) [facility], [address], [place], [address], 03/14/2025 11:03:47 CBC w/ auto diff 2024 025 [facility], [address], [place], [address], 02/09/2025 11:06:32 CMP, serum or plasma 2024 025 [employer] [facility], [address], [place], [address], 03/14/2025 11:03:48 lipid panel, serum 2023 024 [facility], [address], [place], [address], 10/19/2024 17:16:02 CMP, serum or plasma 2023 024 [facility], [address], [place], [address], 10/19/2024 17:16:02 CBC w/ auto diff 2023 024 [facility], [address], [place], [address], 10/19/2024 17:16:02 Referral None record ed. Procedures None record ed. Surgeries None record ed. Imaging None record ed. Medication Orders None record ed. Patient TargetsNo targets recorded. Patient Instructions Encounter Date Encounter Id Patient Instructions Last Modified By Organization Details Last Modified Time 02/10/2024 [id number] advance care planning: care instructions [email or web address] Not available 02/10/2024 22:21:39 Quitting Tobacco : Care Instructions [email or web address] Not available 02/10/2024 22:21:39 Medicare Wellnes s Preventive Checklist [email or web address] Not available 02/10/2024 22:21:39 07/27/2024 [id number] A healthy lifestyle: care instructions [email or web address] Not available 07/27/2024 13:33:03 09/25/2024 [id number] A healthy lifestyle: care instructions [email or web address] Not available 09/25/2024 12:11:22 01/29/2025 [id number] A healthy lifestyle: care instructions Not available 01/29/2025 13:12:33 03/14/2025 [id number] A healthy lifestyle: care instructions Not available 03/14/2025 17:58:16 Quitting Tobacco : Care Instructions [email or web address] Not available 03/14/2025 17:58:16 Reason for Referral None Reported. Results Created Date Observation Date Name Description Value Unit Range Abnormal Flag Note LastModifiedBy Organization Detail LastModifiedTime 02/01/20 24 02/01/2024 Prost ate speci fic Ag [Mass /volu me] in Serum or Plasm a PSA medicare screen text: 0.00-4 .00 PSA medic are scree n Not Available Not Available 01/29/2025 03:35:08 02/01/20 24 02/01/2024 Lipid 1996 panel - Serum or Plasm a cholesterol text: 140-19 9 low jytohi stero l Not Available Not Available 01/29/2025 03:35:08 02/01/20 24 02/01/2024 Lipid 1996 panel - Serum or Plasm a triglyceride s text: 0-150 trigl yceri dominic Not Available Not Available 01/29/2025 03:35:08 02/01/20 24 02/01/2024 Lipid 1996 panel - Serum or Plasm a HDL cholesterol text: 40- HDL jyothi stero l Not Available Not Available 01/29/2025 03:35:08 02/01/20 24 02/01/2024 Lipid 1996 panel - Serum or Plasm a cholesterol in LDL [mass/volume ] in serum or plasma text: 0-130 LDL jyothi stero l, calcu lated Not Available Not Available 01/29/2025 03:35:08 02/01/20 24 02/01/2024 Compr ehens michael metab olic 2000 panel - Serum or Plasm a sodium text: 137-14 5 sodiu m Not Available Not Available 01/29/2025 03:35:08 02/01/20 24 02/01/2024 Compr ehens michael metab olic 2000 panel - Serum or Plasm a potassium text: 3.5-5. 1 potas sium Not Available Not Available 01/29/2025 03:35:08 02/01/20 24 02/01/2024 Compr ehens michael metab olic 2000 panel - Serum or Plasm a chloride text: 98-107 chlor anjelica Not Available Not Available 01/29/2025 03:35:08 02/01/20 24 02/01/2024 Compr ehens michael metab olic 2000 panel - Serum or Plasm a carbon dioxide text: 22-30 carbo n dioxi de Not Available Not Available 01/29/2025 03:35:08 02/01/20 24 02/01/2024 Compr ehens michael metab olic 2000 panel - Serum or Plasm a anion gap text: 14-22 low anion gap Not Available Not Available 01/29/2025 03:35:08 02/01/20 24 02/01/2024 Compr ehens michael metab olic 2000 panel - Serum or Plasm a glucose text: 70-99 high gluco se Not Available Not Available 01/29/2025 03:35:08 02/01/20 24 02/01/2024 Compr ehens michael metab olic 2000 panel - Serum or Plasm a BUN text: 8-19 BUN Not Available Not Available 01/29/2025 03:35:08 02/01/20 24 02/01/2024 Compr ehens michael metab olic 2000 panel - Serum or Plasm a creatinine text: 0.66-1 .25 creat inine Not Available Not Available 01/29/2025 03:35:08 02/01/20 24 02/01/2024 Compr ehens michael metab olic 2000 panel - Serum or Plasm a GFR >60 GFR Not Available Not Availa ble 01/29/2025 03:35:08 02/01/20 24 02/01/2024 Compr ehens michael metab olic 2000 panel - Serum or Plasm a alkaline phosphatase text: 38-126 alkal ine phosp hatas e Not Available Not Available 01/29/2025 03:35:08 02/01/20 24 02/01/2024 Compr ehens michael metab olic 2000 panel - Serum or Plasm a alanine aminotransfe rase text: 0-50 jackie ne amino trans feras e Not Available Not Available 01/29/2025 03:35:08 02/01/20 24 02/01/2024 Compr ehens michael metab olic 2000 panel - Serum or Plasm a aspartate aminotransfe rase text: 15-46 aspar sigala amino trans feras e Not Available Not Available 01/29/2025 03:35:08 02/01/20 24 02/01/2024 Compr ehens michael metab olic 2000 panel - Serum or Plasm a bilirubin, total text: 0.20-1 .30 bilir ubin, total Not Available Not Available 01/29/2025 03:35:08 02/01/20 24 02/01/2024 Compr ehens michael metab olic 2000 panel - Serum or Plasm a calcium text: 8.4-10 .2 calci um Not Available Not Available 01/29/2025 03:35:08 02/01/20 24 02/01/2024 Compr ehens michael metab olic 2000 panel - Serum or Plasm a total protein text: 6.3-8. 2 total prote in Not Available Not Available 01/29/2025 03:35:08 02/01/20 24 02/01/2024 Compr ehens michael metab olic 2000 panel - Serum or Plasm a albumin text: 3.0-4. 4 album in Not Available Not Available 01/29/2025 03:35:08 02/01/20 24 02/01/2024 Compr ehens michael metab olic 2000 panel - Serum or Plasm a globulin text: 2.6-4. 2 low globu elías Not Available Not Available 01/29/2025 03:35:08 02/01/20 24 02/01/2024 Compr ehens michael metab olic 2000 panel - Serum or Plasm a A/G ratio text: 1.0-2. 0 A/G ratio Not Available Not Available 01/29/2025 03:35:08 02/01/20 24 02/01/2024 CBC W Auto Diffe renti al panel - Blood white blood cells text: 4.2-10 .8 white blood cells Not Available Not Available 01/29/2025 03:35:07 02/01/20 24 02/01/2024 CBC W Auto Diffe renti al panel - Blood red blood cells text: 4.10-5 .80 red blood cells Not Available Not Available 01/29/2025 03:35:07 02/01/20 24 02/01/2024 CBC W Auto Diffe renti al panel - Blood hemoglobin text: 13.2-1 7.0 hemog lobin Not Available Not Available 01/29/2025 03:35:07 02/01/20 24 02/01/2024 CBC W Auto Diffe renti al panel - Blood hematocrit text: 39.3-5 0.0 hemat ocrit Not Available Not Available 01/29/2025 03:35:07 02/01/20 24 02/01/2024 CBC W Auto Diffe renti al panel - Blood mean red cell volume text: 80.0-9 7.0 high mean red cell volum e Not Available Not Available 01/29/2025 03:35:07 02/01/20 24 02/01/2024 CBC W Auto Diffe renti al panel - Blood mean red cell hemoglobin text: 27.0-3 3.0 high mean red cell hemog lobin Not Available Not Available 01/29/2025 03:35:07 02/01/20 24 02/01/2024 CBC W Auto Diffe renti al panel - Blood mean RBC HGB concentratio n text: 31.0-3 6.0 mean RBC HGB scot ntrat ion Not Available Not Available 01/29/2025 03:35:07 02/01/20 24 02/01/2024 CBC W Auto Diffe renti al panel - Blood red cell distribution width text: 11.8-1 5.5 red cell distr ibuti on width Not Available Not Available 01/29/2025 03:35:07 02/01/20 24 02/01/2024 CBC W Auto Diffe renti al panel - Blood platelets text: 150-40 0 plate lets Not Available Not Available 01/29/2025 03:35:07 02/01/20 24 02/01/2024 CBC W Auto Diffe renti al panel - Blood mean platelet volume text: 9.0-12 .4 mean plate let volum e Not Available Not Available 01/29/2025 03:35:07 02/01/20 24 02/01/2024 CBC W Auto Diffe renti al panel - Blood neutrophils text: 39.0-7 2.0 neutr ophil s Not Available Not Available 01/29/2025 03:35:07 02/01/20 24 02/01/2024 CBC W Auto Diffe renti al panel - Blood lymphocytes text: 16.0-4 7.0 lymph ocyte s Not Available Not Available 01/29/2025 03:35:07 02/01/20 24 02/01/2024 CBC W Auto Diffe renti al panel - Blood monocytes text: 5.0-12 .0 monoc ytes Not Available Not Available 01/29/2025 03:35:07 02/01/20 24 02/01/2024 CBC W Auto Diffe renti al panel - Blood eosinophils text: 1.0-7. 0 eosin ophil s Not Available Not Available 01/29/2025 03:35:07 02/01/20 24 02/01/2024 CBC W Auto Diffe renti al panel - Blood basophils text: 0.0-2. 0 basop hils Not Available Not Available 01/29/2025 03:35:07 02/01/20 24 02/01/2024 CBC W Auto Diffe renti al panel - Blood immature granulocytes text: 0.00-0 .50 immat ure granu locyt es Not Available Not Available 01/29/2025 03:35:07 02/01/20 24 02/01/2024 CBC W Auto Diffe renti al panel - Blood neutrophils, absolute count text: 1.5-8. 0 neutr ophil s, absol xiomara count Not Available Not Available 01/29/2025 03:35:07 02/01/20 24 02/01/2024 CBC W Auto Diffe renti al panel - Blood lymphocytes, absolute count text: 1.07-3 .43 lymph ocyte s, absol xiomara count Not Available Not Available 01/29/2025 03:35:07 02/01/20 24 02/01/2024 CBC W Auto Diffe renti al panel - Blood monocytes, absolute count text: 0.29-0 .99 monoc ytes, absol xiomara count Not Available Not Available 01/29/2025 03:35:07 02/01/20 24 02/01/2024 CBC W Auto Diffe renti al panel - Blood eosinophils, absolute count text: 0.02-0 .53 eosin ophil s, absol xiomara count Not Available Not Available 01/29/2025 03:35:07 02/01/20 24 02/01/2024 CBC W Auto Diffe renti al panel - Blood basophils, absolute count text: 0.01-0 .08 basop hils, absol xiomara count Not Available Not Available 01/29/2025 03:35:07 02/01/20 24 02/01/2024 CBC W Auto Diffe renti al panel - Blood immature granulocytes ,absolute text: 0.00-0 .05 immat ure granu locyt es,ab solut e Not Available Not Available 01/29/2025 03:35:07 02/01/20 24 02/01/2024 CBC W Auto Diffe renti al panel - Blood nucleated red blood cells text: -0 nucle ated red blood cells Not Available Not Available 01/29/2025 03:35:07 02/01/20 24 02/01/2024 CBC W Auto Diffe renti al panel - Blood NRBC# NRBC# Not Available Not Availa ble 01/29/2025 03:35:07 02/14/20 24 02/14/2024 Folat e [Mass /volu me] in Serum or Plasm a folate text: 2.76-2 0.0 folat e Not Available Not Available 01/29/2025 03:35:08 02/14/20 24 02/14/2024 Cobal mir (Yelena min B12) [Mass /volu me] in Serum or Plasm a vb12 text: 239-93 1 vb12 Not Available Not Available 01/29/2025 03:35:08 02/14/20 24 02/14/2024 Thyro tropi n [Unit s/vol ume] in Serum or Plasm a thyroid-stim ulating hormone text: 0.465- 4.680 thyro id-st imula ting hormo ne Not Available Not Available 01/29/2025 03:35:08 03/17/20 24 03/17/2024 XR, chest No observ ation record ed. [address] [facility], [place], [address], 03/21/2024 17:57:01 03/18/20 24 03/18/2024 US, echoc ardio gram No observ ation record ed. [address], [place], [address], 03/21/2024 17:58:08 03/20/20 24 03/20/2024 fernando can cardi olite stres s test (PROC ) No observ ation record ed. [address] [address], [place], [address], 03/21/2024 17:58:19 03/20/20 24 03/20/2024 fernando can cardi olite stres s test (PROC ) No observ ation record ed. [address] [address], [place], [address], 03/21/2024 17:58:29 Result Notes None recorded. Problems Name Problem SNOMED Code Status Onset Date Resolution Date Notes Provider Name and Address Organization Details Recorded Time Essential hypertension 35053410 Active 2023 Mario Lay MD Attn: Marly rolle,[address] [facility], [place], [address], [facility] - [facility] 4 22:56:32 Screening for malignant neoplasm of prostate Active 2023 Mario Lay MD Attn: Marly rolle,[address] [facility], [place], [address], [place] - [facility] 4 22:56:33 Hyperlipidemi a 08010551 Active 2023 Mario Lay MD Attn: Marly rolle,[address] [facility], [place], [address], [facility] - [facility] 4 22:56:35 Peripheral arterial occlusive disease 830184681 Active 2023 Mario Lay MD Attn: Marly rolle,[address] [facility], [place], [address], [facility] - [place] 4 22:58:47 Gastroesophag eal reflux disease without esophagitis 601388032 Active 2023 Mario Lay MD Attn: Marly rolle,[address] [facility], [place], [place], [address] [place] [address] 2, [facility] - [facility] 4 20:39:16 Coronary atheroscleros is 021289043 Active 2023 Mario Lay MD Attn: Marly rolle,[address] [facility], [place], [place], [address] [place] [address] 2, [facility] - [place] 4 20:39:42 SARS-CoV-2 vaccination declined 2286282131 Active 2023 Mario Lay MD Attn: Marly rolle,[address] [facility], [place], [address], [facility] - [facility] 4 20:40:56 Problem Notes None recorded. Procedures Surgical History Date Name Laterality Status Provider Name and Address Organization Details Recorded Time Tonsillectomy completed Milla Agosto MA [facility] 01/27/2024 10:36:32 fluoroscopy guided percutaneous transluminal angioplasty of bilateral iliac arteries and insertion of bilateral iliac artery stents with contrast completed Milla Agosto MA [facility] 01/27/2024 10:36:44 Imaging Results None recorded. Procedure Notes None recorded. Medical Equipment None Reported. Allergies No known drug allergies Medications Name Sig Start Date Stop Date Status Note LastModified by Organization Details LastModified Time atorvastatin 40 mg tablet Take 1 tablet by mouth once daily 2024 active Not Available Not Available Not Avai lable lisinopril 20 mg tablet Take 1 tablet by mouth once daily 2024 active Not Available Not Available Not Avai lable amoxicillin 875 mg tablet TAKE 1 TABLET BY MOUTH EVERY 12 HOURS FOR 10 DAYS 01/26 completed Not Available Not Available Not Available Prevacid 24Hr active Not Available Not Available Not Available aspirin 81 mg capsule Take 1 capsule every day by oral route. active Not Available Not Available No t Available Vitals Date Recorded Body height Body mass index (BMI) Body weight Heart rate Oxygen saturation Oxygen saturation in Arterial blood by Pulse oximetry Systolic And Diastolic Provider Name and Address Organization Details Last Updated DateTime 5 170.18 cm 27.4 kg/m2 75597.3 8 g 84 /min 96 % 96 % 130/74 mm[Hg] [facility] 5 11:32:12 Date Recorded Body height Body mass index (BMI) Body weight Heart rate Oxygen saturation Oxygen saturation in Arterial blood by Pulse oximetry Systolic And Diastolic Provider Name and Address Organization Details Last Updated DateTime 4 170.18 cm 27.3 kg/m2 52688.8 7 g 64 /min 99 % 99 % 130/68 mm[Hg] Milla Triny [facility] 4 12:04:26 Date Recorded Body height Body mass index (BMI) Body weight Heart rate Oxygen saturation Oxygen saturation in Arterial blood by Pulse oximetry Systolic And Diastolic Provider Name and Address Organization Details Last Updated DateTime 5 170.18 cm 27.7 kg/m2 38955.7 7 g 64 /min 95 % 95 % 124/68 mm[Hg] Milla Triny [facility] 5 17:27:14 Date Recorded Body height Body mass index (BMI) Body weight Heart rate Oxygen saturation Oxygen saturation in Arterial blood by Pulse oximetry Systolic And Diastolic Provider Name and Address Organization Details Last Updated DateTime 4 170.18 cm 28.8 kg/m2 78939.5 6 g 63 /min 99 % 99 % 122/74 mm[Hg] [facility] 4 11:10:31 Date Recorded Body height Body mass index (BMI) Body weight Heart rate Oxygen saturation Oxygen saturation in Arterial blood by Pulse oximetry Systolic And Diastolic Provider Name and Address Organization Details Last Updated DateTime 4 170.18 cm 29.3 kg/m2 86026.7 7 g 80 /min 100 % 100 % 124/70 mm[Hg] [facility] 4 11:44:04 Social History Question Answer Notes LastModified by Organizat ion Details LastModified Time Tobacco Smoking Status Current Every Day Smoker seldom cigars Risa Ross [facility], [place] - [place] 02/10/2024 12:08:51 Do You Have An Advance Directive? No Information not available 02/10/2024 How Many Years Have You Consumed Alcohol? 40 Information not available 01/27/2024 Are You Blind Or Do You Have Difficulty Seeing? No Information not available 02/10/2024 What Is Your Level Of Caffeine Consumption? Moderate 1 Cup Of Coffee Daily Information not available 02/10/2024 In The 14 Days Before Symptom Onset, Have You Had Close Contact With A Laboratory-confir med COVID-19 While That Case Was Ill? No Information not available 07/27/2024 In The 14 Days Before Symptom Onset, Have You Had Close Contact With A Person Who Is Under Investigation For COVID-19 While That Person Was Ill? No Information not available 07/27/2024 Have You Been To An Area Known To Be High Risk For COVID-19? No Information not available 07/27/2024 Are You Deaf Or Do You Have Serious Difficulty Hearing? No Information not available 02/10/2024 What Type Of Diet Are You Following? REGULAR Information not available 02/10/2024 What Is The Highest Grade Or Level Of School You Have Completed Or The Highest Degree You Have Received? [id number] Information not available 02/10/2024 In The Past 7 Days, How Many Days Did You Exercise? 7 Information not available 02/10/2024 On The Days When You Exercised, How Long Did You Exercise Each Day (in Minutes)? 30 Information not available 02/10/2024 How Intense Was Your Typical Exercise? Light (stretching Or Slow Walking) Information not available 02/10/2024 In The Past 7 Days, How Much Pain Have You [place]? Some Information not available 02/10/2024 In General, Would You Say You Health Is: Good Information not available 02/10/2024 How Would You Describe The Condition Of Your Mouth And Teeth- Including False Teeth Or Dentures? Good Information not available 02/10/2024 Each Night, How Many Hours Of Sleep Do You Get? 11 Information no t available 02/10/2024 Has Anyone Ever Told You That You Snore? Yes Information not available 02/10/2024 In The Past 7 Days, How Often Have You [place] Sleepy In The Daytime? Never Information not available 02/10/2024 # Alcohol Drinks Per Week 0 Information not available 02/10/2024 What Was The Date Of Your Most Recent Tobacco Screening? 03/14/2025 Information not available 03/14/2025 What Is Your Relationship Status? Information not available 02/10/2024 Do You Use Your Seat Belt Or Car Seat Routinely? Yes Information not available 02/10/2024 Do You Have Smoke And Carbon Monoxide Detectors In Your Home? Yes Information not available 01/27/2024 Do You Use Sunscreen Routinely? No Information not available 02/10/2024 Has Tobacco Cessation Counseling Been Provided? Yes Information not available 07/27/2024 On What Date Was Tobacco Cessation Counseling Provided? 03/14/2025 Information not available 03/14/2025 Sex: Male Functional Status Question Answer Note LastModified by Organizat ion Details LastModified Time Do you use any illicit or recreational drugs? Yes Occasional marijuana Information not available 02/10/2024 Do you or have you ever used any other forms of tobacco or nicotine? No Information not available 02/10/2024 What is your level of alcohol consumption? Occasional Information not available 01/27/2024 Are you currently employed? No Information not available 02/10/2024 Are you able to care for yourself? Yes Information not available 02/10/2024 Do you or have you ever used e-cigarettes or vape? Never used electronic cigarettes Information not available 01/27/2024 What is your exercise level? Moderate Information not available 02/10/2024 Mental Status Question Answer Note LastModified by Organization D etails LastModified Time Do you feel stressed (tense, restless, nervous, or anxious, or unable to sleep at night)? [id number] Information not available 02/10/2024 Family History Relationship Description Onset Age of this Age Resolved Age Notes LastModified by Organization Details LastModified Time Father Harmful pattern of use of alcohol mebyma Not available 2023 10:34:52 Mother Malignant tumor of breast mebyma Not available 2023 10:34:59 Sister Disorder of thyroid gland mebyma Not available 2023 10:35:06 Medical History Condition Response Coronary Artery Disease N Other N Atrial Fibrillation N High Blood Pressure Y Kidney or Bladder Problems N Thyroid Problems N GI Problems N Depression N COPD N Blood Clots N Skin Problems N Anemia N Heart Attack (MT) N Anxiety Disorder N Diabetes N Muscle, Joint, or Bone Problems N Seizures/Epilepsy N Acid Reflux (GERD) Y Cancer N Stroke N Asthma N Allergies N High Cholesterol Y Hepatitis N Liver Disease N Headaches N Heart Failure N Osteoporosis N Immunizations Vaccine Type Date Status Note Provider Nam e and Address Organization Details Recorded Time Influenza, MDCK, quadrivalent, PF 6 completed Risa [place] null, [place] - [facility] 02/09/2024 15:19:18 Influenza, high-dose, quadrivalent, PF 2 completed Risa [place], [place] [facility] 02/09/2024 15:19:18 Influenza, high-dose, quadrivalent, PF 0 completed Risa [place] [facility] 02/09/2024 15:19:18 Influenza, high-dose, quadrivalent, PF 1 completed Risa [place] [facility] 02/09/2024 15:19:18 Influenza, high-dose, quadrivalent, PF 3 completed [place]isa [place] [facility] 02/09/2024 15:19:18 COVID-19, mRNA, LNP-S, PF, 30 mcg/0.3 mL dose 1 completed Risa [place] [facility] 02/09/2024 15:19:18 COVID-19, mRNA, LNP-S, PF, 30 mcg/0.3 mL dose 1 completed Risa [place] [facility] 02/09/2024 15:19:18 COVID-19, mRNA, LNP-S, PF, 30 mcg/0.3 mL dose, scarlett-sucrose 2 completed Risa Ross null, [place] - [facility] 02/09/2024 15:19:18 pneumococcal polysaccharide PPV23 6 completed Risa [place], [place] [facility] 02/09/2024 15:19:18 Pneumococcal conjugate PCV 13 5 completed R[place] [facility] 02/09/2024 15:19:18 Influenza, high-dose, trivalent, PF 9 completed [place] [facility] 02/09/2024 15:19:18 Influenza, high-dose, trivalent, PF 5 completed [place] [facility] 02/09/2024 15:19:18 Influenza, high-dose, trivalent, PF 7 completed [place] [facility] 02/09/2024 15:19:18 Influenza, high-dose, trivalent, PF 9 completed [place] [facility] 02/09/2024 15:19:18 Influenza, split virus, trivalent, preservative 4 completed [place] [facility] 02/09/2024 15:19:18 Influenza, high-dose, trivalent, PF 4 completed Mario Lay MD Attn: Accounting,[address] [place], [address], [place] [facility] 08/05/2024 20:36:24 Tdap 5 completed Neris Jackman MA null, [place] - [facility] 03/14/2025 17:44:21 Past Encounters Encounter ID Performer Location Encounter Start Date Encounter Closed Date Diagnosis/Indication Diagnosis SNOMED-CT Code Diagnosis ICD10 Code Diagnosis Note [id number] Mario Lay MD [facility] Brenda Rush [address] [place] [address] 01/27/2024 10:13:03 01/27/2024 11:26:35 Essential hypertension 41914572 I10 Screening for malignant neoplasm of prostate 064437279 Z12.5 Hyperlipidemia 98371159 E78.5 Gastroesop hageal reflux disease without esophagitis 269914002 K21.9 Peripheral arterial occlusive disease 865373163 I73.9 [id number] Mario Lay MD [facility] [email or web address] [facility] [place] [address] [place] [address] 02/10/2024 11:38:40 02/10/2024 12:38:31 Adult health examination 780588547 Z00.00 Health Risk Assessment collected and reviewed [id number] Mario Lay MD [facility] [email or web address] [facility] [place] [address] [place] [address] 07/27/2024 10:36:24 07/27/2024 11:41:54 Body mass index 25-29 - overweight 098139447 Z68.28 Overweight 871939069 E66 .3 Administra tion of influenza vaccine 18088128 Z23 Essential hypertension 44335797 I10 Gastroesop hageal reflux disease without esophagitis 344157598 K21.9 Hyperlipidemia 35976919 E78.5 Coronary atherosclerosis 661045933 I25.10 SARS-CoV-2 vaccination declined 0946610545 Z28.21 [id number] Mario Lay MD [facility] [email or web address] [facility] [place] [address] [place] [address] 09/25/2024 11:31:59 09/25/2024 12:38:13 Body mass index 25-29 - overweight 132334388 Z68.29 Overweight 363338172 E66 .3 Essential hypertension 87524775 I10 Hyperlipidemia 68237087 E78.5 Gastroesop hageal reflux disease without esophagitis 748854753 K21.9 Coronary atherosclerosis 478677319 I25.10 [id number] Mario Lay MD [facility] [email or web address] [facility] [place] [address] [place] [address] 01/29/2025 10:59:50 01/29/2025 11:54:34 Overweight in adulthood with body mass index of 25 or more but less than 30 188072705 Z68.27 Overweight 763210577 E66 .3 Essential hypertension 09686880 I10 Hyperlipidemia 50789866 E78.5 Screening for malignant neoplasm of prostate 378230758 Z12.5 Gastroesop hageal reflux disease without esophagitis 658740607 K21.9 Coronary atherosclerosis 108996975 I25.10 Peripheral arterial occlusive disease 482348683 I73.9 [id number] Mario Lay MD [facility] ([facility] [address] [place] [address] 03/14/2025 16:41:57 03/14/2025 17:40:08 Smoker 69288423 F17.200 Overweight in adulthood with body mass index of 25 or more but less than 30 409313110 E66.3 Z68.27 Tetanus to xoid vaccination given 8422910524 96478 Z23 Right inguinal hernia 23 5513962 K40.90 Health Concerns Section Related Observation LastModified by Organization Detai ls LastModified Time None Recorded Concern Status LastModified by Organization Details LastModified Time None Recorded Advance Directives Directive N: Payers Insurance Date Sequence Insurance Name Policy Number Policy Barbosa Covered Member ID Barbosa Member ID Guarantor Name 03/14/2025 1 [facility] (MEDICARE REPLACEMENT/A DVANTAGE - HMO) [id number] Jai Nicole [id number] Jai Nicole Notes Date Note Type Note Provider Name and Address Organization Details Recorded Time 02/10/2024 text/html MAW 2Reported bypatient.Diet and Nutrition:healthy diet; discussed portion control Fracture Risk:no sudden unexplained fractures;history of fractures(both ankles at 18 years old) Concentration and Memory:no decreased concentrating ability; no memory lapses or loss; does not forget words Speech/Motor difficulties:no speech difficulties; no difficulty expressing formulated concepts; no difficulty with fine manipulative tasks; no difficulty writing/copying; no slowed reaction time; does not knock things over when trying to pick them up Hearing:no loss of hearing Vision:worse both distance and near(glasses) Activities of Daily Living:able to bathe with limited or no assistance; able to contol urination and bowels; able to dress with limited or no assistance; able to feed self with limited or no assistance; able to get out of chair or bed with limited or no assistance; able to groom with limited or no assistance; able to toilet with limited or no assistance Instrumental Activities of Daily Living:able to do house work with limited or no assistance; able to grocery shop with limited or no assistance; able to manage medications with limited or no assistance; able to manage money with limited or no assistance; able to prepare meals with limited or no assistance; able to use the phone with limited or no assistance Falls Risk Assessment:no frequent falls while walking; no fall in the past year; no fall since last visit; no dizziness/vertigo Home Safety:no unsafe rey hazzards; no unsafe stairs; working smoke/CO detectors; practicing 'safer sex'; has hand bars in the bathroom/shower; good lighting in the home Mario Lay MD Attn: [address] [place], [address], [facility] 02/10/2024 22:21:42 07/27/2024 text/html hypertension no headache or dizziness dyslipidemia he is taking his atorvastatin without side effects. GERD has been stable at a hospitalization for some chest pain couple of months ago was seen by Cardiology was told that he has probably panic disorder he has had nothing since dyslipidemia taking his atorvastatin without any problems his GERD has been stable with [id number] Prevacid Mario Lay MD Attn: [address] [place], [address], [facility] 08/05/2024 20:41:21 09/25/2024 text/html interval history chest pain stress test negative feels fine hypertension no headache or dizziness blood pressure 124/70. Hyperlipidemia is taking his atorvastatin and he was trying to follow a low-fat diet. His GERD has been stable on [id number] Prevacid CAD no angina or anginal equivalents and as stated he had the episode there he had a stress test that was negative. Overweight needs some help shedding a few lb Mario Lay MD Attn: [address] [place], [address], [facility] 10/07/2024 22:57:03 01/29/2025 text/html 78-year-old with hypertension hyperlipidemia GERD CAD with stent comes in for follow-up of medical problems CAD no chest pain GERD no nausea or vomiting hyperlipidemia does take his medication try to follow low-fat diet hypertension no headache or dizziness. Does smoke occasional cigar he will take Prevacid from time to time [id number] and he also uses aspirin in addition to his lisinopril and atorvastatin blood counts have been stable with regards to his anemia DIONICIO Mas[place], [place] - [facility] 01/29/2025 17:23:35 03/14/2025 text/html Pain right groin couple of weeks no trauma it is not getting worse [id number] Mario Lay MD Attn: [address] [facility], [place], [address], [facility] 03/14/2025 21:52:09
--- OUTSIDE RECORDS SUMMARY | 2025-04-13 10:22 | XMS_ITS | Data Portability ---
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 Hyperlipidemia atorvastatin Return to clinic 6 months Smoking history LD CT Not available 12/29/2022 22:00:34 07/08/2023 07/08/2023 Diagnosis in assessment and plan have been discussed most recent blood work reviewed again he refuses LDCT understands risk of lung cancer with his smoking history and that early detection best case scenario to cure or extend life expectancy follow-up 6 [email or web address] Not available 07/08/2023 20:41:27 Plan of Treatment Reminders Order Date Submit Date Provider Last Modified By Organization Details Last Modified Time Details Appointments None record ed. Lab None record ed. Referral None record ed. Procedures None record ed. Surgeries None record ed. Imaging None record ed. Medication Orders None record ed. Patient TargetsNo targets recorded. Patient InstructionsNo instructions recorded. Reason for Referral None Reported. Results Created Date Observation Date Name Description Value Unit Range Abnormal Flag Note LastModifiedBy Organization Detail LastModifiedTime 06/30/20 22 06/30/2022 LIPID PANEL LDL cholesterol, calculated 47 mg/dL 0-130 NIH ANDREA NSUS REPOR T RECOM MENDA TIONS FOR LDL: ADULT CHILD LOW RISK <130 <110 (OPTI MAL LDL) <100 ----- BORDE RLINE : 130-1 59 ----- HIGH RISK: >160 >130 A TRIGL YCERI DE RESUL T >400 INVAL IDATE S THE CALCU LATIO N FOR LDL FRACT IONAT ION - THE LDL RESUL T WILL NOT BE REPOR EVETTE. Not Available [facility] (Lab) [address] [place], [address], 06/30/2022 20:12:56 06/30/20 22 06/30/2022 LIPID PANEL cholesterol 125 mg/dL 140-19 9 low NIH ANDREA NSUS RECOM MENDA TION FOR MANOJ STERO L: ADULT CHILD LOW RISK: <200 <170 BORDE RLINE : <200- 239 ----- HIGH RISK: >240 >200 Not Available [facility] (Lab) [address] [place], [address], 06/30/2022 20:12:56 06/30/2006/30/2022 LIPID PANEL triglyceride s 94 mg/dL 0-150 NIH ANDREA NSUS REPOR T RECOM MENDA TION FOR TRIGL YCERI JEN: ADULT CHILD LOW RISK: <150 ----- BODER LINE: 150-1 99 ----- HIGH RISK: >200 ----- Not Available [facility] (Lab) [address] [place], [address], 06/30/2022 20:12:56 06/30/2006/30/2022 LIPID PANEL HDL cholesterol 59 mg/dL 40- Not Available [facility] (Lab) [address] [place], [address], 06/30/2022 20:12:56 06/30/20 22 06/30/2022 COMPR EHENS DONATO METAB OLIC PANEL carbon dioxide 24 mmol/ L 22-30 Not Available [facility] (Lab) [address] [place], [address], 06/30/2022 20:12:47 06/30/20 22 06/30/2022 COMPR EHENS DONATO METAB OLIC PANEL sodium 136 mmol/ L 137-14 5 low Not Available [facility] (Lab) [address] [place], [address], 06/30/2022 20:12:47 06/30/20 22 06/30/2022 COMPR EHENS DONATO METAB OLIC PANEL potassium 5.6 mmol/ L 3.5-5. 1 high Not Available [facility] (Lab) [address] [place], [address], 06/30/2022 20:12:47 06/30/20 22 06/30/2022 COMPR EHENS DONATO METAB OLIC PANEL chloride 102 mmol/ L 98-107 Not Available [facility] (Lab) [address] [place], [address], 06/30/2022 20:12:47 06/30/20 22 06/30/2022 COMPR EHENS DONATO METAB OLIC PANEL anion gap 15.6 mmol/ L 14-22 Not Available [facility] (Lab) [address] [place], [address], 06/30/2022 20:12:47 06/30/20 22 06/30/2022 COMPR EHENS DONATO METAB OLIC PANEL glucose 94 mg/dL 70-99 Not Available [facility] (Lab) [address] [place], [address], 06/30/2022 20:12:47 06/30/20 22 06/30/2022 COMPR EHENS DONATO METAB OLIC PANEL BUN 10 mg/dL 8-19 Not Available [facility] (Lab) [address] [place], [address], 06/30/2022 20:12:47 06/30/20 22 06/30/2022 COMPR EHENS DONATO METAB OLIC PANEL creatinine 1.10 mg/dL 0.66-1 .25 Not Available [facility] (Lab) [address] [place], [address], 06/30/2022 20:12:47 06/30/20 22 06/30/2022 COMPR EHENS DONATO METAB OLIC PANEL GFR >60 Refer ence Range : [place] ge GFR Healt hy Adult : >60 mL/mi n/1.7 3 m2 Chron ic Kidne y Disea se: 15-60 mL/mi n/1.7 3 m2 Kidne y Failu re: <15/m L/min /1.73 m2 www.n iddk. nih.g ov The MDRD study equat ion has not been valid ated in child rafael <18 years of age; pregn ant women ; the elder ly >85 years of age; or in some racia l or ethni c subgr oups, such as Hispa nics. Outsi de the valid ated britt eters , estim ated GFR is less accur ate, requi ring clini cindy judgm ent on a case- by-ca se basis . Clini cindy inter preta tion for other races and ages must be made by the clini heaven. The MDRD study equat ion has not been valid ated for the evalu ation of serum creat inine relat ed to nutri yani l statu s or medic ation usage . For perso ns <18 years of age, a pedia tric GFR calcu lator is avail able on the [facility] websi te: https ://aura yañez.deep alexander.o rg/pr ofess ional s/kdo qi/gf r_cal culat or Not Available [facility] (Lab) [address] [place], [address], 06/30/2022 20:12:47 06/30/20 22 06/30/2022 COMPR EHENS DONATO METAB OLIC PANEL alkaline phosphatase 110 U/L 38-126 Not Available [facility] (Lab) [address] [place], [address], 06/30/2022 20:12:47 06/30/20 22 06/30/2022 COMPR EHENS DONATO METAB OLIC PANEL alanine aminotransfe rase 40 U/L 0-50 Not Available [facility] (Lab) [address] [place], [address], 06/30/2022 20:12:47 06/30/20 22 06/30/2022 COMPR EHENS DONATO METAB OLIC PANEL aspartate aminotransfe rase 41 U/L 15-46 Not Available [facility] (Lab) [address] [place], [address], 06/30/2022 20:12:47 06/30/20 22 06/30/2022 COMPR EHENS DONATO METAB OLIC PANEL bilirubin, total 0.90 mg/dL 0.20-1 .30 Not Available [facility] (Lab) [address] [place], [address], 06/30/2022 20:12:47 06/30/20 22 06/30/2022 COMPR EHENS DONATO METAB OLIC PANEL calcium 9.7 mg/dL 8.4-10 .2 Not Available [facility] (Lab) [address] [place], [address], 06/30/2022 20:12:47 06/30/20 22 06/30/2022 COMPR EHENS DONATO METAB OLIC PANEL total protein 7.1 g/dL 6.3-8. 2 Not Available [facility] (Lab) [address] [place], [address], 06/30/2022 20:12:47 06/30/20 22 06/30/2022 COMPR EHENS DONATO METAB OLIC PANEL albumin 4.5 g/dL 3.0-4. 4 high Not Available [facility] (Lab) [address] [place], [address], 06/30/2022 20:12:47 06/30/20 22 06/30/2022 COMPR EHENS DONATO METAB OLIC PANEL globulin 2.6 g/dL 2.6-4. 2 Not Available [facility] (Lab) [address] [place], [address], 06/30/2022 20:12:47 06/30/20 22 06/30/2022 COMPR EHENS DONATO METAB OLIC PANEL A/G ratio 1.7 ratio 1.0-2. 0 Not Available [facility] (Lab) [address] [place], [address], 06/30/2022 20:12:47 12/30/19 23 12/29/2022 CBC/C OMPLE TE BLD COUNT W/DIF F white blood cells 6.9 x10'3 /uL 4.2-10 .8 Not Available [facility] (Lab) [address] [place], [address], 12/29/2022 18:32:11 12/30/19 23 12/29/2022 CBC/C OMPLE TE BLD COUNT W/DIF F red blood cells 4.58 x10'6 /uL 4.10-5 .80 Not Available [facility] (Lab) [address] [place], [address], 12/29/2022 18:32:11 12/30/19 23 12/29/2022 CBC/C OMPLE TE BLD COUNT W/DIF F hemoglobin 16.0 g/dL 13.2-1 7.0 Not Available [facility] (Lab) [address] [place], [address], 12/29/2022 18:32:11 12/30/19 23 12/29/2022 CBC/C OMPLE TE BLD COUNT W/DIF F hematocrit 47.0 % 39.3-5 0.0 Not Available [facility] (Lab) [address] [place], [address], 12/29/2022 18:32:11 12/30/19 23 12/29/2022 CBC/C OMPLE TE BLD COUNT W/DIF F mean red cell volume 102.6 fL 80.0-9 7.0 high Not Available [facility] (Lab) [address] [place], [address], 12/29/2022 18:32:11 12/30/19 23 12/29/2022 CBC/C OMPLE TE BLD COUNT W/DIF F mean red cell hemoglobin 34.9 pg 27.0-3 3.0 high Not Available [facility] (Lab) [address] [place], [address], 12/29/2022 18:32:11 12/30/19 23 12/29/2022 CBC/C OMPLE TE BLD COUNT W/DIF F mean RBC HGB concentratio n 34.0 g/dL 31.0-3 6.0 Not Available [facility] (Lab) [address] [place], [address], 12/29/2022 18:32:11 12/30/19 23 12/29/2022 CBC/C OMPLE TE BLD COUNT W/DIF F red cell distribution width 13.2 % 11.8-1 5.5 Not Available [facility] (Lab) [address] [place], [address], 12/29/2022 18:32:11 12/30/19 23 12/29/2022 CBC/C OMPLE TE BLD COUNT W/DIF F platelets 174 x10'3 /uL 150-40 0 Not Available [facility] (Lab) [address] [place], [address], 12/29/2022 18:32:11 12/30/19 23 12/29/2022 CBC/C OMPLE TE BLD COUNT W/DIF F mean platelet volume 10.0 fL 9.0-12 .4 Not Available [facility] (Lab) [address] [place], [address], 12/29/2022 18:32:11 12/30/19 23 12/29/2022 CBC/C OMPLE TE BLD COUNT W/DIF F neutrophils 54.3 % 39.0-7 2.0 Not Available [facility] (Lab) [address] [place], [address], 12/29/2022 18:32:11 12/30/19 23 12/29/2022 CBC/C OMPLE TE BLD COUNT W/DIF F lymphocytes 34.0 % 16.0-4 7.0 Not Available [facility] (Lab) [address] [place], [address], 12/29/2022 18:32:11 12/30/19 23 12/29/2022 CBC/C OMPLE TE BLD COUNT W/DIF F monocytes 9.1 % 5.0-12 .0 Not Available [facility] (Lab) [address] [place], [address], 12/29/2022 18:32:11 12/30/19 23 12/29/2022 CBC/C OMPLE TE BLD COUNT W/DIF F eosinophils 1.4 % 1.0-7. 0 Not Available [facility] (Lab) [address] [place], [address], 12/29/2022 18:32:11 12/30/19 23 12/29/2022 CBC/C OMPLE TE BLD COUNT W/DIF F basophils 0.9 % 0.0-2. 0 Not Available [facility] (Lab) [address] [place], [address], 12/29/2022 18:32:11 12/30/19 23 12/29/2022 CBC/C OMPLE TE BLD COUNT W/DIF F immature granulocytes 0.3 % 0.00-0 .50 Not Available [facility] (Lab) [address] [place], [address], 12/29/2022 18:32:11 12/30/19 23 12/29/2022 CBC/C OMPLE TE BLD COUNT W/DIF F neutrophils, absolute count 3.76 x10'3 /uL 1.5-8. 0 Not Available [facility] (Lab) [address] [place], [address], 12/29/2022 18:32:11 12/30/19 23 12/29/2022 CBC/C OMPLE TE BLD COUNT W/DIF F lymphocytes, absolute count 2.35 x10'3 /uL 1.07-3 .43 Not Available [facility] (Lab) [address] [place], [address], 12/29/2022 18:32:11 12/30/19 23 12/29/2022 CBC/C OMPLE TE BLD COUNT W/DIF F monocytes, absolute count 0.63 x10'3 /uL 0.29-0 .99 Not Available [facility] (Lab) [address] [place], [address], 12/29/2022 18:32:11 12/30/19 23 12/29/2022 CBC/C OMPLE TE BLD COUNT W/DIF F eosinophils, absolute count 0.10 x10'3 /uL 0.02-0 .53 Not Available [facility] (Lab) [address] [place], [address], 12/29/2022 18:32:11 12/30/19 23 12/29/2022 CBC/C OMPLE TE BLD COUNT W/DIF F basophils, absolute count 0.06 x10'3 /uL 0.01-0 .08 Not Available [facility] (Lab) [address] [place], [address], 12/29/2022 18:32:11 12/30/19 23 12/29/2022 CBC/C OMPLE TE BLD COUNT W/DIF F immature granulocytes ,absolute 0.02 x10'3 /uL 0.00-0 .05 Not Available [facility] (Lab) [address] [place], [address], 12/29/2022 18:32:11 12/30/19 23 12/29/2022 CBC/C OMPLE TE BLD COUNT W/DIF F nucleated red blood cells 0.0 % -0 Not Available [facility] (Lab) [address] [place], [address], 12/29/2022 18:32:11 12/30/19 23 12/29/2022 CBC/C OMPLE TE BLD COUNT W/DIF F NRBC# 0.00 x10'3 /uL Not Available [facility] (Lab) [address] [place], [address], 12/29/2022 18:32:11 12/30/19 23 12/29/2022 COMPR EHENS DONATO METAB OLIC PANEL sodium 138 mmol/ L 137-14 5 Not Available [facility] (Lab) [address] [place], [address], 12/29/2022 19:38:11 12/30/19 23 12/29/2022 COMPR EHENS DONATO METAB OLIC PANEL potassium 5.3 mmol/ L 3.5-5. 1 high Not Available [facility] (Lab) [address] [place], [address], 12/29/2022 19:38:11 12/30/19 23 12/29/2022 COMPR EHENS DONATO METAB OLIC PANEL chloride 106 mmol/ L 98-107 Not Available [facility] (Lab) [address] [place], [address], 12/29/2022 19:38:11 12/30/19 23 12/29/2022 COMPR EHENS DONATO METAB OLIC PANEL carbon dioxide 23 mmol/ L 22-30 Not Available [facility] (Lab) [address] [place], [address], 12/29/2022 19:38:11 12/30/19 23 12/29/2022 COMPR EHENS DONATO METAB OLIC PANEL anion gap 14.3 mmol/ L 14-22 Not Available [facility] (Lab) [address] [place], [address], 12/29/2022 19:38:11 12/30/19 23 12/29/2022 COMPR EHENS DONATO METAB OLIC PANEL glucose 98 mg/dL 70-99 Not Available [facility] (Lab) [address] [place], [address], 12/29/2022 19:38:11 12/30/19 23 12/29/2022 COMPR EHENS DONATO METAB OLIC PANEL BUN 18 mg/dL 8-19 Not Available [facility] (Lab) [address] [place], [address], 12/29/2022 19:38:11 12/30/19 23 12/29/2022 COMPR EHENS DONATO METAB OLIC PANEL creatinine 1.06 mg/dL 0.66-1 .25 Not Available [facility] (Lab) [address] [place], [address], 12/29/2022 19:38:11 12/30/1912/29/2022 COMPR EHENS DONATO METAB OLIC PANEL GFR >60 Refer ence Range : [place] ge GFR Healt hy Adult : >60 mL/mi n/1.7 3 m2 Chron ic Kidne y Disea se: 15-60 mL/mi n/1.7 3 m2 Kidne y Failu re: <15/m L/min /1.73 m2 www.n iddk. nih.g ov The MDRD study equat ion has not been valid ated in child rafael <18 years of age; pregn ant women ; the elder ly >85 years of age; or in some racia l or ethni c subgr oups, such as Hispa nics. Outsi de the valid ated britt eters , estim ated GFR is less accur ate, requi ring clini cindy judgm ent on a case- by-ca se basis . Clini cindy inter preta tion for other races and ages must be made by the clini heaven. The MDRD study equat ion has not been valid ated for the evalu ation of serum creat inine relat ed to nutri yani l statu s or medic ation usage . For perso ns <18 years of age, a pedia tric GFR calcu lator is avail able on the [facility] websi te: https ://ww w.kid benjamin.o rg/pr ofess ional s/kdo qi/gf r_cal culat or Not Available [facility] (Lab) [address] [place], [address], 12/29/2022 19:38:11 12/30/19 23 12/29/2022 COMPR EHENS DONATO METAB OLIC PANEL alkaline phosphatase 107 U/L 38-126 Not Available [facility] (Lab) [address] [place], [address], 12/29/2022 19:38:11 12/30/19 23 12/29/2022 COMPR EHENS DONATO METAB OLIC PANEL alanine aminotransfe rase 51 U/L 0-50 high Not Available [facility] (Lab) [address] [place], [address], 12/29/2022 19:38:11 12/30/19 23 12/29/2022 COMPR EHENS DONATO METAB OLIC PANEL aspartate aminotransfe rase 37 U/L 15-46 Not Available [facility] (Lab) [address] [place], [address], 12/29/2022 19:38:11 12/30/19 23 12/29/2022 COMPR EHENS DONATO METAB OLIC PANEL bilirubin, total 0.80 mg/dL 0.20-1 .30 Not Available [facility] (Lab) [address] [place], [address], 12/29/2022 19:38:11 12/30/19 23 12/29/2022 COMPR EHENS DONATO METAB OLIC PANEL calcium 9.2 mg/dL 8.4-10 .2 Not Available [facility] (Lab) [address] [place], [address], 12/29/2022 19:38:11 12/30/19 23 12/29/2022 COMPR EHENS DONATO METAB OLIC PANEL total protein 7.4 g/dL 6.3-8. 2 Not Available [facility] (Lab) [address] [place], [address], 12/29/2022 19:38:11 12/30/19 23 12/29/2022 COMPR EHENS DONATO METAB OLIC PANEL albumin 4.3 g/dL 3.0-4. 4 Not Available [facility] (Lab) [address] [place], [address], 12/29/2022 19:38:11 12/30/19 23 12/29/2022 COMPR EHENS DONATO METAB OLIC PANEL globulin 3.1 g/dL 2.6-4. 2 Not Available [facility] (Lab) [address] [place], [address], 12/29/2022 19:38:11 12/30/19 23 12/29/2022 COMPR EHENS DONATO METAB OLIC PANEL A/G ratio 1.4 ratio 1.0-2. 0 Not Available [facility] (Lab) [address] [place], [address], 12/29/2022 19:38:11 12/30/19 23 12/29/2022 LIPID PANEL cholesterol 124 mg/dL 140-19 9 low NIH ANDREA NSUS RECOM MENDA TION FOR MANOJ STERO L: ADULT CHILD LOW RISK: <200 <170 BORDE RLINE : <200- 239 ----- HIGH RISK: >240 >200 Not Available [facility] (Lab) [address] [place], [address], 12/29/2022 19:38:13 12/30/19 23 12/29/2022 LIPID PANEL triglyceride s 58 mg/dL 0-150 NIH ANDREA NSUS REPOR T RECOM MENDA TION FOR TRIGL YCERI JEN: ADULT CHILD LOW RISK: <150 ----- BODER LINE: 150-1 99 ----- HIGH RISK: >200 ----- Not Available [facility] (Lab) [address] [place], [address], 12/29/2022 19:38:13 12/30/1912/29/2022 LIPID PANEL HDL cholesterol 70 mg/dL 40- Not Available [facility] (Lab) [address] [place], [address], 12/29/2022 19:38:13 12/30/19 23 12/29/2022 LIPID PANEL LDL cholesterol, calculated 42 mg/dL 0-130 NIH ANDREA NSUS REPOR T RECOM MENDA TIONS FOR LDL: ADULT CHILD LOW RISK <130 <110 (OPTI MAL LDL) <100 ----- TEODORA RLINE : 130-1 59 ----- HIGH RISK: >160 >130 A TRIGL YCERI DE RESUL T >400 INVAL IDATE S THE CALCU LATIO N FOR LDL FRACT IONAT ION - THE LDL RESUL T WILL NOT BE REPOR EVETTE. Not Available [facility] (Lab) [address] [place], [address], 12/29/2022 19:38:13 12/30/1912/29/2022 PSA SCREE N PSA medicare screen 1.00 NG/mL 0.00-4 .00 Not Available [facility] (Lab) [address] [place], [address], 12/29/2022 20:00:13 02/01/20 24 02/01/2024 CBC/C OMPLE TE BLD COUNT W/DIF F white blood cells 6.3 x10'3 /uL 4.2-10 .8 Not Available [facility] (Lab) [address] [place], [address], 02/01/2024 13:51:31 02/01/20 24 02/01/2024 CBC/C OMPLE TE BLD COUNT W/DIF F red blood cells 4.51 x10'6 /uL 4.10-5 .80 Not Available [facility] (Lab) [address] [place], [address], 02/01/2024 13:51:31 02/01/20 24 02/01/2024 CBC/C OMPLE TE BLD COUNT W/DIF F hemoglobin 16.0 g/dL 13.2-1 7.0 Not Available [facility] (Lab) [address] [place], [address], 02/01/2024 13:51:31 02/01/20 24 02/01/2024 CBC/C OMPLE TE BLD COUNT W/DIF F hematocrit 47.1 % 39.3-5 0.0 Not Available [facility] (Lab) [address] [place], [address], 02/01/2024 13:51:31 02/01/20 24 02/01/2024 CBC/C OMPLE TE BLD COUNT W/DIF F mean red cell volume 104.4 fL 80.0-9 7.0 high Not Available [facility] (Lab) [address] [place], [address], 02/01/2024 13:51:31 02/01/20 24 02/01/2024 CBC/C OMPLE TE BLD COUNT W/DIF F mean red cell hemoglobin 35.5 pg 27.0-3 3.0 high Not Available [facility] (Lab) [address] [place], [address], 02/01/2024 13:51:31 02/01/20 24 02/01/2024 CBC/C OMPLE TE BLD COUNT W/DIF F mean RBC HGB concentratio n 34.0 g/dL 31.0-3 6.0 Not Available [facility] (Lab) [address] [place], [address], 02/01/2024 13:51:31 02/01/20 24 02/01/2024 CBC/C OMPLE TE BLD COUNT W/DIF F red cell distribution width 13.4 % 11.8-1 5.5 Not Available [facility] (Lab) [address] [place], [address], 02/01/2024 13:51:31 02/01/20 24 02/01/2024 CBC/C OMPLE TE BLD COUNT W/DIF F platelets 170 x10'3 /uL 150-40 0 Not Available [facility] (Lab) [address] [place], [address], 02/01/2024 13:51:31 02/01/20 24 02/01/2024 CBC/C OMPLE TE BLD COUNT W/DIF F mean platelet volume 10.3 fL 9.0-12 .4 Not Available [facility] (Lab) [address] [place], [address], 02/01/2024 13:51:31 02/01/20 24 02/01/2024 CBC/C OMPLE TE BLD COUNT W/DIF F neutrophils 60.8 % 39.0-7 2.0 Not Available [facility] (Lab) [address] [place], [address], 02/01/2024 13:51:31 02/01/20 24 02/01/2024 CBC/C OMPLE TE BLD COUNT W/DIF F lymphocytes 27.2 % 16.0-4 7.0 Not Available [facility] (Lab) [address] [place], [address], 02/01/2024 13:51:31 02/01/20 24 02/01/2024 CBC/C OMPLE TE BLD COUNT W/DIF F monocytes 8.6 % 5.0-12 .0 Not Available [facility] (Lab) [address] [place], [address], 02/01/2024 13:51:31 02/01/20 24 02/01/2024 CBC/C OMPLE TE BLD COUNT W/DIF F eosinophils 2.1 % 1.0-7. 0 Not Available [facility] (Lab) [address] [place], [address], 02/01/2024 13:51:31 02/01/20 24 02/01/2024 CBC/C OMPLE TE BLD COUNT W/DIF F basophils 0.8 % 0.0-2. 0 Not Available [facility] (Lab) [address] [place], [address], 02/01/2024 13:51:31 02/01/20 24 02/01/2024 CBC/C OMPLE TE BLD COUNT W/DIF F immature granulocytes 0.5 % 0.00-0 .50 Not Available [facility] (Lab) [address] [place], [address], 02/01/2024 13:51:31 02/01/20 24 02/01/2024 CBC/C OMPLE TE BLD COUNT W/DIF F neutrophils, absolute count 3.83 x10'3 /uL 1.5-8. 0 Not Available [facility] (Lab) [address] [place], [address], 02/01/2024 13:51:31 02/01/20 24 02/01/2024 CBC/C OMPLE TE BLD COUNT W/DIF F lymphocytes, absolute count 1.71 x10'3 /uL 1.07-3 .43 Not Available [facility] (Lab) [address] [place], [address], 02/01/2024 13:51:31 02/01/20 24 02/01/2024 CBC/C OMPLE TE BLD COUNT W/DIF F monocytes, absolute count 0.54 x10'3 /uL 0.29-0 .99 Not Available [facility] (Lab) [address] [place], [address], 02/01/2024 13:51:31 02/01/20 24 02/01/2024 CBC/C OMPLE TE BLD COUNT W/DIF F eosinophils, absolute count 0.13 x10'3 /uL 0.02-0 .53 Not Available [facility] (Lab) [address] [place], [address], 02/01/2024 13:51:31 02/01/20 24 02/01/2024 CBC/C OMPLE TE BLD COUNT W/DIF F basophils, absolute count 0.05 x10'3 /uL 0.01-0 .08 Not Available [facility] (Lab) [address] [place], [address], 02/01/2024 13:51:31 02/01/20 24 02/01/2024 CBC/C OMPLE TE BLD COUNT W/DIF F immature granulocytes ,absolute 0.03 x10'3 /uL 0.00-0 .05 Not Available [facility] (Lab) [address] [place], [address], 02/01/2024 13:51:31 02/01/20 24 02/01/2024 CBC/C OMPLE TE BLD COUNT W/DIF F nucleated red blood cells 0.0 % -0 Not Available [facility] (Lab) [address] [place], [address], 02/01/2024 13:51:31 02/01/20 24 02/01/2024 CBC/C OMPLE TE BLD COUNT W/DIF F NRBC# 0.00 x10'3 /uL Not Available [facility] (Lab) [address] [place], [address], 02/01/2024 13:51:31 02/01/20 24 02/01/2024 COMPR EHENS DONATO METAB OLIC PANEL sodium 137 mmol/ L 137-14 5 Not Available [facility] (Lab) [address] [place], [address], 02/01/2024 15:16:02 02/01/20 24 02/01/2024 COMPR EHENS DONATO METAB OLIC PANEL potassium 4.6 mmol/ L 3.5-5. 1 Not Available [facility] (Lab) [address] [place], [address], 02/01/2024 15:16:02 02/01/20 24 02/01/2024 COMPR EHENS DONATO METAB OLIC PANEL chloride 105 mmol/ L 98-107 Not Available [facility] (Lab) [address] [place], [address], 02/01/2024 15:16:02 02/01/20 24 02/01/2024 COMPR EHENS DONATO METAB OLIC PANEL carbon dioxide 25 mmol/ L 22-30 Not Available [facility] (Lab) [address] [place], [address], 02/01/2024 15:16:02 02/01/20 24 02/01/2024 COMPR EHENS DONATO METAB OLIC PANEL anion gap 11.6 mmol/ L 14-22 low Not Available [facility] (Lab) [address] [place], [address], 02/01/2024 15:16:02 02/01/20 24 02/01/2024 COMPR EHENS DONATO METAB OLIC PANEL glucose 109 mg/dL 70-99 high Not Available [facility] (Lab) [address] [place], [address], 02/01/2024 15:16:02 02/01/20 24 02/01/2024 COMPR EHENS DONATO METAB OLIC PANEL BUN 14 mg/dL 8-19 Not Available [facility] (Lab) [address] [place], [address], 02/01/2024 15:16:02 02/01/20 24 02/01/2024 COMPR EHENS DONATO METAB OLIC PANEL creatinine 1.08 mg/dL 0.66-1 .25 Not Available [facility] (Lab) [address] [place], [address], 02/01/2024 15:16:02 02/01/20 24 02/01/2024 COMPR EHENS DONATO METAB OLIC PANEL GFR >60 Refer ence Range : [place] ge GFR Healt hy Adult : >60 mL/mi n/1.7 3 m2 Chron ic Kidne y Disea se: 15-60 mL/mi n/1.7 3 m2 Kidne y Failu re: <15/m L/min /1.73 m2 www.n iddk. nih.g ov The MDRD study equat ion has not been valid ated in child rafael <18 years of age; pregn ant women ; the elder ly >85 years of age; or in some racia l or ethni c subgr oups, such as Hisnv nics. Outsi de the valid ated britt eters , estim ated GFR is less accur ate, requi ring clini cindy judgm ent on a case- by-ca se basis . Clini cindy inter preta tion for other races and ages must be made by the clini heaven. The MDRD study equat ion has not been valid ated for the evalu ation of serum creat inine relat ed to nutri yani l statu s or medic ation usage . For perso ns <18 years of age, a pedia tric GFR calcu lator is avail able on the [facility] websi te: https ://aura w.deep alexander.o rg/pr ofess ional s/kdo qi/gf r_cal culat or Not Available [facility] (Lab) [address] [place], [address], 02/01/2024 15:16:02 02/01/20 24 02/01/2024 COMPR EHENS DONATO METAB OLIC PANEL alkaline phosphatase 75 U/L 38-126 Not Available [facility] (Lab) [address] [place], [address], 02/01/2024 15:16:02 02/01/20 24 02/01/2024 COMPR EHENS DONATO METAB OLIC PANEL alanine aminotransfe rase 46 U/L 0-50 Not Available [facility] (Lab) [address] [place], [address], 02/01/2024 15:16:02 02/01/20 24 02/01/2024 COMPR EHENS DONATO METAB OLIC PANEL aspartate aminotransfe rase 40 U/L 15-46 Not Available [facility] (Lab) [address] [place], [address], 02/01/2024 15:16:02 02/01/20 24 02/01/2024 COMPR EHENS DONATO METAB OLIC PANEL bilirubin, total 0.60 mg/dL 0.20-1 .30 Not Available [facility] (Lab) [address] [place], [address], 02/01/2024 15:16:02 02/01/20 24 02/01/2024 COMPR EHENS DONATO METAB OLIC PANEL calcium 9.4 mg/dL 8.4-10 .2 Not Available [facility] (Lab) [address] [place], [address], 02/01/2024 15:16:02 02/01/20 24 02/01/2024 COMPR EHENS DONATO METAB OLIC PANEL total protein 6.7 g/dL 6.3-8. 2 Not Available [facility] (Lab) [address] [place], [address], 02/01/2024 15:16:02 02/01/20 24 02/01/2024 COMPR EHENS DONATO METAB OLIC PANEL albumin 4.2 g/dL 3.0-4. 4 Not Available [facility] (Lab) [address] [place], [address], 02/01/2024 15:16:02 02/01/20 24 02/01/2024 COMPR EHENS DONATO METAB OLIC PANEL globulin 2.5 g/dL 2.6-4. 2 low Not Available [facility] (Lab) [address] [place], [address], 02/01/2024 15:16:02 02/01/20 24 02/01/2024 COMPR EHENS DONATO METAB OLIC PANEL A/G ratio 1.7 ratio 1.0-2. 0 Not Available [facility] (Lab) [address] [place], [address], 02/01/2024 15:16:02 02/01/20 24 02/01/2024 LIPID PANEL cholesterol 116 mg/dL 140-19 9 low NIH ANDREA NSUS RECOM MENDA TION FOR MANOJ STERO L: ADULT CHILD LOW RISK: <200 <170 BORDE RLINE : <200- 239 ----- HIGH RISK: >240 >200 Not Available [facility] (Lab) [address] [place], [address], 02/01/2024 15:16:04 02/01/20 24 02/01/2024 LIPID PANEL triglyceride s 56 mg/dL 0-150 NIH ANDREA NSUS REPOR T RECOM MENDA TION FOR TRIGL YCERI JEN: ADULT CHILD LOW RISK: <150 ----- BODER LINE: 150-1 99 ----- HIGH RISK: >200 ----- Not Available [facility] (Lab) [address] [place], [address], 02/01/2024 15:16:04 02/01/20 24 02/01/2024 LIPID PANEL HDL cholesterol 78 mg/dL 40- Not Available [facility] (Lab) [address] [place], [address], 02/01/2024 15:16:04 02/01/20 24 02/01/2024 LIPID PANEL LDL cholesterol, calculated 27 mg/dL 0-130 NIH ANDREA NSUS REPOR T RECOM MENDA TIONS FOR LDL: ADULT CHILD LOW RISK <130 <110 (OPTI MAL LDL) <100 ----- BORDE RLINE : 130-1 59 ----- HIGH RISK: >160 >130 A TRIGL YCERI DE RESUL T >400 INVAL IDATE S THE CALCU LATIO N FOR LDL FRACT IONAT ION - THE LDL RESUL T WILL NOT BE REPOR EVETTE. Not Available [facility] (Lab) [address] [place], [address], 02/01/2024 15:16:04 02/01/20 24 02/01/2024 PSA SCREE N PSA medicare screen 1.15 NG/mL 0.00-4 .00 Not Available [facility] (Lab) [address] [place], [address], 02/01/2024 15:22:39 02/14/20 24 02/14/2024 TSH thyroid-stim ulating hormone 1.520 uIU/m L 0.465- 4.680 Not Available [facility] (Lab) [address] [place], [address], 02/14/2024 19:08:12 02/14/20 24 02/14/2024 VITAM IN B12 (TRUMAN ZULY ) vb12 372 pg/mL 239-93 1 Not Available [facility] (Lab) [address] [place], [address], 02/14/2024 21:25:36 02/14/20 24 02/14/2024 FOLAT E, SERUM /PLAS MA folate 16.3 NG/mL 2.76-2 0.0 Not Available [facility] (Lab) [address] [place], [address], 02/14/2024 21:25:41 Result Notes None recorded. Problems Name Problem SNOMED Code Status Onset Date Resolution Date Notes Provider Name and Address Organization Details Recorded Time Abnormal urinalysis 254491852 Active Not Available [facility] 4 12:43:41 Steatotic liver disease 126223064 Active 2018 Not Available [facility] 4 12:43:41 Microscopi c hematuria 841324273 Active Not Available [facility] 4 12:43:41 Gastroesop hageal reflux disease 838690097 Active Not Available [facility] 4 12:43:41 Left side sciatica 3171063639672 04 Active 2021 Not Available [facility] 4 12:43:41 Depressive disorder 40566620 Active Not Available [facility] 4 12:43:41 Hypertensi ve disorder 06357890 Active 2016 Not Available [facility] 4 12:43:41 Neuropathy 319173478 Active 2018 Not Available [facility] 4 12:43:41 Malignant neoplasm of urinary bladder 406684325 Active Not Available [facility] 4 12:43:41 Peripheral arterial occlusive disease 579774519 Active Not Available [facility] 4 12:43:41 Coronary atheroscle rosis 742496042 Active Not Available [facility] 4 12:43:41 Hyperlipid emia 16210125 Active Not Available [facility] 4 12:43:41 Essential hypertensi on 64257864 Active Not Available [facility] 4 12:43:41 Diarrhea 57025754 Active Not Available [facility] 4 12:43:41 Polyp of colon 86561254 Active Not Available [facility] 4 12:43:41 Nicotine dependence 28081146 Active 2022 Not Available [facility] 4 12:43:41 Problem Notes None recorded. Procedures Surgical History Date Name Laterality Status Provider Name and Address Organization Details Recorded Time 11/07/19 21 Colonoscopy completed Not Available [facility] 12/03/19 05:56:31 03/19/20 14 Colonoscopy completed Not Available [facility] 12/03/19 05:56:31 12/21/19 14 Cystoscopy and treatment completed Not Available [facility] 12/02/2022 05:56:31 12/21/19 14 transurethral excision of neoplasm of urinary bladder completed Not Available [facility] 12/02/2022 05:56:31 Unlisted px leg/ankle completed Not Available [facility] 12/02/2022 05:56:31 Cardiac Stent Placement completed Not Available [facility] 12/02/2022 05:56:31 Imaging Results None recorded. Procedure Notes None recorded. Medical Equipment None Reported. Allergies No known drug allergies Medications Name Sig Start Date Stop Date Status Note LastModified by Organization Details LastModified Time amoxicillin 500 mg capsule 04/26 completed Not Available Not Available Not Available atorvastati n 40 mg tablet Take 1 tablet by mouth once daily active Not Available Not Available No t Available cilostazol 100 mg tablet active Not Available Not Available Not Available pravastatin 40 mg tablet Take 1 tablet every day by oral route. active Not Available Not Available No t Available tizanidine 4 mg tablet Take 1 tablet twice a day by oral route. active Not Available Not Available No t Available clarithromy denys 500 mg tablet 04/26 completed Not Available Not Available Not Available hydrocodone 5 mg-acetamin ophen 325 mg tablet active Not Available Not Available No t Available lisinopril 20 mg tablet active Not Available Not Available Not Available penicillin V potassium 500 mg tablet TAKE 2 TABLETS BY MOUTH NOW THEN 1 TABLET EVERY 6 HOURS UNTIL GONE. 04/10 completed Not Available Not Available Not Available ciprofloxac in 250 mg tablet Take 1 tablet every 12 hours by oral route for 2 days. 08/03 completed Not Available Not Available Not Available ciprofloxac in 500 mg tablet Take 1 tablet every 12 hours by oral route for 2 days. 07/02 completed Not Available Not Available Not Available sulfamethox azole 800 mg-trimetho prim 160 mg tablet active Not Available Not Available Not Available hydrocortis one acetate 25 mg rectal suppository Insert 1 supposito ry twice a day by rectal route for 10 days. 01/27 completed Not Available Not Available Not Available citalopram 20 mg tablet Take 1 tablet every day by oral route. active Not Available Not Available No t Available tamsulosin 0.4 mg capsule Take 1 capsule every day by oral route. 10/22 completed Not Available Not Available Not Available cephalexin 500 mg capsule TAKE 1 CAPSULE BY MOUTH EVERY 6 HOURS FOR 7 DAYS 09/21 completed Not Available Not Available Not Available lansoprazol e 30 mg capsule,del ayed release 10/14 completed Not Available Not Available Not Available gabapentin 100 mg capsule Take 2 capsules every day by oral route at bedtime. active Not Available Not Available No t Available ibuprofen 600 mg tablet active Not Available Not Available Not Available methylpredn isolone 4 mg tablets in a dose pack TAKE BY MOUTH DIRECTED ON INSIDE OF PACKAGE 02/13 completed Not Available Not Available Not Available Adult Low Dose Aspirin 81 mg tablet,deborah yed release Take 1 tablet every day by oral route. 2015 active Not Available Not Available Not Avai lable Low Dose Aspirin 81 mg tablet,deborah yed release Take 1 tablet every day by oral route. 04/10 completed Not Available Not Available Not Available Pneumovax-2 3 25 mcg/0.5 mL injection syringe active Not Available Not Available Not Available diazepam 5 mg-7.5 mg-10 mg rectal kit set both syringes to 10mg will administe r in office 10/14 completed Not Available Not Available Not Available omeprazole OTC 04/04 completed Not Available Not Available Not Available Prilosec 06/30 completed Not Available Not Available Not Available Prevacid 04/26 completed Not Available Not Available Not Available Nexium OTC qd 06/30 completed Not Available Not Available Not Available Prilosec OTC 2021 active Not Available Not Available Not Avai lable Chantix Continuing Month Farshad 1 mg tablet Take 1 tablet twice a day by oral route as directed for 30 days. active Not Available Not Available No t Available GaviLyte-N 420 gram oral solution active Not Available Not Available Not Available Prevnar 13 (PF) 0.5 mL intramuscul ar syringe active Not Available Not Available N ot Available Suprep Bowel Prep Kit 17.5 gram-3.13 gram-1.6 gram oral solution USE DIRECTED 04/10 completed Not Available Not Available Not Available Chantix Starting Month Box 0.5 mg (11)-1 mg (42) tablets in dose pack Take 1 tablet by oral route as directed. active Not Available Not Available No t Available Fluzone High-Dose (PF) 180 mcg/0.5 mL intramuscul ar syringe active Not Available Not Available N ot Available Fluzone High-Dose 7356-4109 (PF) 180 mcg/0.5 mL intramuscul ar syringe 08/03 completed Not Available Not Available Not Available Fluzone High-Dose 6974-9949 (PF) 180 mcg/0.5 mL intramuscul ar syringe 01/27 completed Not Available Not Available Not Available Fluzone High-Dose (PF) 180 mcg/0.5 mL intramuscul ar syringe active Not Available Not Available N ot Available Fluzone High-Dose Quad (PF) 240 mcg/0.7 mL IM syringe ADM 0.7ML IM UTD 10/10 completed Not Available Not Available Not Available Vitals Date Recorded Body height Body mass index (BMI) Body weight Heart rate Body temperature Systolic And Diastolic Provider Name and Address Organization Details Last Updated DateTime 3 170.18 cm 27.4 kg/m2 19393.6 6 g 64 /min 97.9 [degF] 128/78 mm[Hg] Wandy blount RN [place] [facility] 3 10:55:28 Date Recorded Body mass index (BMI) Body height Heart rate Body temperature Body weight Systolic And Diastolic Provider Name and Address Organization Details Last Updated DateTime 2 28 kg/m2 170.18 cm 62 /min 97.3 [degF] 90656.0 3 g 130/70 mm[Hg] Not Available [facility] 3 06:02:27 Date Recorded Body mass index (BMI) Body height Heart rate Body temperature Body weight Systolic And Diastolic Provider Name and Address Organization Details Last Updated DateTime 2 27.9 kg/m2 170.18 cm 70 /min 96.3 [degF] 83319.4 4 g 130/70 mm[Hg] Not Available [facility] 3 06:02:27 Date Recorded Body height Heart rate Body temperature Body weight Systolic And Diastolic Provider Name and Address Organization Details Last Updated DateTime 06/30/2022 170.18 cm 63 /min 97.6 [degF] 35393.7 g 118/74 mm[Hg] Not Available [facility] 3 06:02:27 Date Recorded Body height Body mass index (BMI) Body weight Body temperature Heart rate Systolic And Diastolic Provider Name and Address Organization Details Last Updated DateTime 3 170.18 cm 27.1 kg/m2 08873.4 8 g 98.1 [degF] 65 /min 120/68 mm[Hg] Wandy blount RN [place] [facility] [place] [facility] [employer] [facility] 3 10:46:30 Social History Question Answer Notes LastModified by Organization Details LastModified Time Tobacco Smoking Status Former Smoker quit 2014 Not Available [facility] 12/02/2022 05:56:15 Do You Have An Advance Directive? No MIGRATION.030 [id number] Information not available 12/02/2022 Are You Blind Or Do You Have Difficulty Seeing? Yes Wears Glasses MIGRATION.030 [id number] Information not available 12/02/2022 What Is Your Level Of Caffeine Consumption? Moderate MIGRATION.030 [id number] Information not available 12/02/2022 How Much Tobacco Do You Chew? None MIGRATION.030 [id number] Information not available 12/02/2022 In The 14 Days Before Symptom Onset, Have You Had Close Contact With A Laboratory-confi rmed COVID-19 While That Case Was Ill? No MIGRATION.030 [id number] Information not available 12/02/2022 In The 14 Days Before Symptom Onset, Have You Had Close Contact With A Person Who Is Under Investigation For COVID-19 While That Person Was Ill? No MIGRATION.030 [id number] Information not available 12/02/2022 Are You Deaf Or Do You Have Serious Difficulty Hearing? No MIGRATION.030 [id number] Information not available 12/02/2022 What Type Of Diet Are You Following? REGULAR MIGRATION.030 [id number] Information not available 12/02/2022 Which Illicit Or Recreational Drugs Have You Used? None MIGRATION.030 759063 Information not available 12/02/2022 What Is The Highest Grade Or Level Of School You Have Completed Or The Highest Degree You Have Received? [id number] MIGRATION.030 894419 Information not available 12/02/2022 Have There Been Any Changes To Your Family Or Social Situation? No MIGRATION.030 735525 Information not available 12/02/2022 What Is The Fluoride Status Of Your Home? Unknown MIGRATION.0301 244807 Information not available 12/02/2022 When Did You Quit Smoking? 6-10yearssincelast cigarette MIGRATION.0301 449189 Information not available 12/02/2022 Are There Any Guns Present In Your Home? Yes Locked Up MIGRATION.0301 719273 Information not available 12/02/2022 Do You Use Insect Repellent Routinely? No MIGRATION.0301 [id number] Information not available 12/02/2022 Where Do You Live? [facility] MIGRATION.0301 885151 Information not available 12/02/2022 Do You Have A Medical Power Of Revenue Stamp Clerk? No MIGRATION.0301 [id number] Information not available 12/02/2022 What Was The Date Of Your Most Recent Tobacco Screening? 07/08/2023 [email or web address] Information not available 07/08/2023 Have You Ever Been Counseled For Unhealthy Alcohol Use? No MIGRATION.0301 036236 Information not available 12/02/2022 Do You Have Any Pets? No MIGRATION.0301 015355 Information not available 12/02/2022 What Is Your Relationship Status? MIGRATION.0301 [id number] Information not available 12/02/2022 Do You Use Your Seat Belt Or Car Seat Routinely? Yes MIGRATION.0301 [id number] Information not available 12/02/2022 Do You Have Smoke And Carbon Monoxide Detectors In Your Home? Yes MIGRATION.0301 [id number] Information not available 12/02/2022 At What Age Did You Start Smoking Tobacco? 18 MIGRATION.0301 [id number] Information not available 12/02/2022 Are You Passively Exposed To Smoke? No MIGRATION.0301 828502 Information not available 12/02/2022 Are There Any Smokers In Your House? No MIGRATION.0301 627214 Information not available 12/02/2022 How Much Tobacco Do You Smoke? No MIGRATION.0301 003510 Information not available 12/02/2022 Do You Use Sunscreen Routinely? Yes MIGRATION.0301 [id number] Information not available 12/02/2022 Have You Recently Traveled Abroad? No MIGRATION.0301 934281 Information not available 12/02/2022 Do You Have Difficulty Walking Or Climbing Stairs? No MIGRATION.0301 055692 Information not available 12/02/2022 Sex: Male Functional Status Question Answer Note LastModified by Organizat [employer] Details LastModified Time Do you use any illicit or recreational drugs? No MIGRATION.90913 55873 Information not available 12/02/2022 Do you or have you ever used any other forms of tobacco or nicotine? No MIGRATION.23151 31886 Information not available 12/02/2022 What is your level of alcohol consumption? Moderate 1-2 beers daily MIGRATION.10409 96905 Information not available 12/02/2022 Do you or have you ever used smokeless tobacco? Never used smokeless tobacco MIGRATION.44946 15190 Information not available 12/02/2022 Do you have transportation difficulties? No MIGRATION.49482 73245 Information not available 12/02/2022 Are you able to walk? YESWOREST MIGRATION.17577 32455 Information not available 12/02/2022 Do you have difficulty doing errands alone? No MIGRATION.81694 20756 Information not available 12/02/2022 Are you able to care for yourself? Yes MIGRATION.65464 86564 Information not available 12/02/2022 What is your occupation? retired MIGRATION.85597 40189 Information not available 12/02/2022 Do you have difficulty dressing or bathing? No MIGRATION.07476 87938 Information not available 12/02/2022 Do you or have you ever used e-cigarettes or vape? Never used electronic cigarettes MIGRATION.30370 70940 Information not available 12/02/2022 What is your exercise level? Moderate MIGRATION.90665 77608 Information not available 12/02/2022 Mental Status Question Answer Note LastModified by Organizat [employer] Details LastModified Time Do you feel stressed (tense, restless, nervous, or anxious, or unable to sleep at night)? [id number] MIGRATION.[id number] 26 Information not available 12/02/2022 Do you have difficulty concentrating, remembering or making decisions? No MIGRATION.61322298 26 Information not available 12/02/2022 Family History Relationship Description Onset Age of this Age Resolved Age Notes LastModified by Organization Details LastModified Time Mother Carcinoma of breast 56 MIGRATION.934 [id number] Not available 12/02/2022 05:56:39 Father Congestive heart failure 75 MIGRATION.654 [id number] Not available 12/02/2022 05:56:39 Father Urolithiasis MIGRATION.0 30 [id number] Not available 12/02/2022 05:56:39 Medical History Condition Response NERVE DISEASE Y BLINDNESS N RHEUMATIC FEVER N KIDNEY STONES N BLADDER PROBLEMS N MRSA N OTHER # 1 Y POLIO N LUNG DISEASE/DISORDER N RADIATION / CHEMOTHERAPY N COPD N Other # 2 N BLOOD DISEASES N EAR OR HEARING PROBLEMS N MUMPS N DEPRESSION (INCLUDING POST ) Y BOWEL PROBLEMS N STROKE/TIA N ULCERS N BENIGN PROSTATIC HYPERPLASIA N MEASLES N MYOCARDIAL INFARCTION N OBESITY N GERD/NAUSEA Y ANEURYSM N URINARY/BLADDER/KIDNEY PROBLEMS Y CORONARY ARTERY DISEASE (CAD) Y ADDICTION CONCERNS N Impotence N ENDOMETRIOSIS N USE OF BLOOD THINNERS N SKIN PROBLEMS N GASTROINTESTINAL DISORDER N PERIPHERAL VASCULAR DISEASE N MUSCLE,JOINT OR BONE PROBLEMS N GASTROINTESTINAL BLEEDING N BLOOD CLOTS N ASTHMA N CATARACTS N ERECTILE DYSFUNCTION N VARICOSITIES N GI PROBLEMS N Low Testosterone N INFERTILITY N AIDS/HIV N CHEMOTHERAPY / RADIATION N LIVER DISEASE N MALE HYPOGONADISM N HYPERTENSION Y Deficiency N TOURETTE'S N ANXIETY DISORDER N BLOOD TRANSFUSION N ANEMIA/BLOOD DISORDER N CHRONIC EAR INFECTIONS N BRONCHITIS N TUBERCULOSIS N GLAUCOMA N FOOT PROBLEM N DIVERTICULITIS N SLEEP APNEA N CHICKENPOX N INFECTIOUS DISEASE N PROSTATE N HEART ARRHYTHMIA N INSOMNIA N HIGH CHOLESTEROL / HYPERLIPIDEMIA Y EYE PROBLEMS N HYPERTHYROIDISM N EDEMA N CHRONIC PAIN SYNDROME N HYPOTHYROIDISM N CAROTID BLOCKAGE N CONSTIPATION N BACK / NECK PROBLEMS N HAVE YOU BEEN HOSPITALIZED OR [facility] IN [facility] IN THE PAST YEAR ? N ATHEROSCLEROSIS N BREAST PROBLEMS N DIALYSIS N ECZEMA N OSTEOPOROSIS N ARTHRITIS N APPENDICITIS N DIABETES, TYPE N BAD TEETH N ENT N HEARTBURN / REFLUX N AUTISM SPECTRUM DISORDER (ASD) N HEPATITIS / LIVER DISEASE N GOUT N SLEEP DISORDER N ALZHEIMER'S DISEASE N Brain Problems N DEMENTIA N HERPES N SEIZURES/EPILEPSY N HEADACHES/MIGRAINES N VASCULAR DISEASE N PACEMAKER N Blood Disorder N DIZZINESS N HEART DISEASE/HEART PROBLEMS N KIDNEY DISEASE N MULTIPLE SCLEROSIS N CANCER: SPECIFY Y CARDIAC ARRHYTHMIA N ATRIAL FIBRILLATION N Gall Stones N PULMONARY EMBOLISM N AUTOIMMUNE DISEASE N Immunizations Vaccine Type Date Status Note Provider Nam e and Address Organization Details Recorded Time Influenza, high-dose, quadrivalent, PF 3 completed Not Available [facility] 11/05/2023 12:43:41 Influenza, high-dose, trivalent, PF 0 completed Not Available [facility] 11/05/2023 12:43:42 Influenza, high-dose, trivalent, PF 9 completed Not Available [facility] 11/05/2023 12:43:42 Influenza, high-dose, trivalent, PF 9 completed Not Available [facility] 11/05/2023 12:43:41 Influenza, high-dose, trivalent, PF 7 completed Not Available [facility] 11/05/2023 12:43:41 Pneumococcal conjugate PCV 13 5 completed Not Available [facility] 11/05/2023 12:43:41 Influenza, split virus, trivalent, preservative 5 completed Not Available [facility] 11/05/2023 12:43:42 Influenza, high-dose, quadrivalent, PF 2 completed Not Available [facility] 11/05/2023 12:43:41 COVID-19, mRNA, LNP-S, PF, 30 mcg/0.3 mL dose 2 completed Not Available [facility] 11/05/2023 12:43:41 Influenza, high-dose, quadrivalent, PF 1 completed Not Available [facility] 11/05/2023 12:43:41 COVID-19, mRNA, LNP-S, PF, 30 mcg/0.3 mL dose 1 completed Not Available [facility] 11/05/2023 12:43:41 COVID-19, mRNA, LNP-S, PF, 30 mcg/0.3 mL dose 1 completed Not Available [facility] 11/05/2023 12:43:41 influenza, unspecified formulation 6 completed Not Available [facility] 11/05/2023 12:43:41 pneumococcal polysaccharide PPV23 6 completed Not Available [facility] 11/05/2023 12:43:41 Influenza, split virus, trivalent, preservative 4 completed Not Available [facility]23 12:43:42 Past Encounters Encounter ID Performer Location Encounter Start Date Encounter Closed Date Diagnosis/Indication Diagnosis SNOMED-CT Code Diagnosis ICD10 Code Diagnosis Note [id number] Mario Lay MD [facility] [address] [facility] [place] [address] 04/10/2021 00:00:00 04/10/2021 22:47:17 [id number] Mario Lay MD [facility] Internal Med [place] [address] [place] [address] [place] [address] 10/09/2021 00:00:00 10/10/2021 13:46:17 [id number] Mario Lay MD [facility] Internal Med [facility] [address] [place] [address] [address] [place] [address] 02/13/2022 00:00:00 03/15/2022 21:03:07 [id number] Mario Lay MD [facility] Internal Med [place] [address] [place] [address] [place] [address] 03/03/2022 00:00:00 03/21/2022 15:34:25 [id number] Mario Lay MD [facility] Internal Med [place] [address] [place] [address] [place] [address] 06/30/2022 00:00:00 08/02/2022 14:47:03 [id number] Mario Lay MD [facility] Internal Med [place] [address] [place] [address] [place] [address] 12/29/2022 10:46:33 12/29/2022 12:00:12 Coronary atherosclerosis 657512851 I25.10 Steatotic liver disease 996680777 K76.0 Essential hypertension 38570064 I10 Gastroesop hageal reflux disease 416403159 K21.9 Hyperlipidemia 39744887 E78.5 [id number] Mario Lay MD [facility] Internal Med [place] [address] [place] [address] [place] [address] 07/08/2023 10:34:58 07/08/2023 11:55:50 Essential hypertension 12895430 I10 Gastroesop hageal reflux disease 318007158 K21.9 Hyperlipidemia 64734788 E78.5 Coronary atherosclerosis 261882896 I25.10 Health Concerns Section Related Observation LastModified by Organization Detai ls LastModified Time None Recorded Concern Status LastModified by Organization Details LastModified Time None Recorded Advance Directives Directive N: Payers Insurance Date Sequence Insurance Name Policy Number Policy Barbosa Covered Member ID Barbosa Member ID Guarantor Name 07/05/2023 1 [facility] - MEDICARE COMPLETE PLAN 1 (MEDICARE REPLACEMENT HMO) [id number] Jai Nicole [id number] Jai Nicole Notes Date Note Type Note Provider Name and Address Organization Details Recorded Time 12/30/19 23 text/htm l CAD no chest painSteatosis of liver no signs or symptoms of hepatic decompensationHypertension no headache no dizzinessGERD no nausea no vomitingHyperlipidemia taking the atorvastatin trying to watch low fat dietSmoking history Needs LDCT Mario Lay MD [address], [place], [address], [employer] [facility] 12/29/2022 22:00:53 07/08/20 23 text/htm l CAD no chest painSteatosis of liver no signs or symptoms of hepatic decompensationHypertension no headache no dizzinessGERD no nausea no vomitingHyperlipidemia taking the atorvastatin trying to watch low fat dietSmoking history Needs LDCT he refuses Mario Lay MD [address], [place], [address], [employer] 07/08/2023 20:41:43
--- NOTE | 2025-04-13 10:24 | ECG_ITS ---
Test Date: 2025-04-13 10:38:18 Measurements Intervals [place] Rate: 63 P: 59 VT: 170 QRS: -72 QRSD: 132 T: 47 QT: 405 QTc: 417 Interpretive Statements SINUS RHYTHM RIGHT BUNDLE BRANCH BLOCK LEFT ANTERIOR FASCICULAR BLOCK Electronically Signed On 04-13-2025 11:10:06 CDT by Tony Zavala D.O
== END 2025-04-13 10:13 | disposition home or self-care (01) ==
LOC: ANHSURGERY 10:17
PROVIDERS: PCP Internal Medicine; Visit Provider Surgery
DX: I10 Essential (primary) hypertension (principal); I25.10 Atherosclerotic heart disease of native coronary artery without angina pectoris; K40.90 Unilateral inguinal hernia, without obstruction or gangrene, not specified as recurrent; Z01.818 Encounter for other preprocedural examination
CPT/HCPCS: 36415; 86850; 86900; 86901; 93005

== ENCOUNTER 2025-04-19 02:35 | Day surgery (SDC) | payer MEDICARE, SELFPAY ==
[2025-04-12 09:22] VITALS: BMI 27.2
--- NOTE | 2025-04-12 09:33 | PC.NURSE ---
Report to the Outpatient Waiting Room, entrance under the green pavilion located off [facility], at time _07:30am on date __04/19/25 . Planned Procedure Time: 09:30am .? Time changes happen often and if your time is changed the preop area will call you the afternoon before. - You and your visitor will be asked to self-screen and do not enter if you have any COVID symptoms. Please call surgeon if you need to reschedule. - A mask is optional within the hospital at this time. Patients may have clear liquids (water, carbonated beverages, clear teas, apple juice) until 3 hours prior to surgery with a maximum of 20 ounces. - No food from midnight until time of surgery and no smoking, or chewing tobacco (or any form of nicotine). No chewing gum, candy or mints.(06:30am) Take only the following medications with a SIP of water on the morning of surgery: None DO NOT STOP ANY OF YOUR OTHER PRESCRIPTION MEDICATIONS PRIOR TO SURGERY EXCEPT THE FOLLOWING Hold all vitamins and supplements for 3 days per anesthesiologist. Medications to discontinue per physician NONE Date to take last dose____NONE Please no make-up, nail icelandic, hairspray, perfume, deodorant, or body powder the day of surgery.? No jewelry (including any body piercings) or valuables the day of surgery, leave them at home.? Please take a shower or bath the night before, or the morning of, surgery with an antibacterial soap.? Wear comfortable, loose fitting clothing.? - Jewelry must be removed prior to entering the operating room.? Rings and piercings that are not removed may be cut off. - The hospital will not accept responsibility for valuables.? - Please leave all valuables, including medications, at home the day of surgery. If you are going home after surgery, a licensed tow driver must drive you home.? - NO public transportation without another adult if you receive anesthesia. - We recommend that an adult stay with you for 24 hours following discharge. - We also recommend that you do not drive, make important decision, drink alcoholic beverages, or take any drugs that were not prescribed by your health care provider for at least 24 hours after your discharge time. Follow any additional instructions given to you from your surgeon. Telephone instructions given to ____Patient and asked if any additional questions and then verbalized understanding. Patient advised to call surgeon office or pre surgery nurse liaison [phone] if any additional questions.
[2025-04-19] VITALS (10 sets, daily range): BP systolic 110–148; BP diastolic 61–70; PULSE 56–64; RESP 10–25; TEMP 36.7; O2SAT 98–100
--- OUTSIDE RECORDS SUMMARY | 2025-04-19 02:37 | XMS_ITS | Clinical Summary ---
Author Organization [facility] Address [facility] [place] [address] Care Team Providers Care Record Press Operator Name Role Phone Papito Perkins MD Unavailable Jose Lay MD Primary Care Provider [phone] Social History Tobacco Use Types Packs/Day Years [...] age to complete this topic Care Teams Record Press Operator Relationship Specialty Start Date End Date Jose Lay MD [facility]. VICTOR MANUEL [address] [place], [place] [id number] PCP - General INTERNAL MEDICINE 07/06/17 Papito Perkins MD [facility]. VICTOR MANUEL [address] [place], [place] [phone] Vascular/Oil Well Logger VASCULAR SURGERY 06/30/17
--- OUTSIDE RECORDS SUMMARY | 2025-04-19 02:37 | XMS_ITS | Data Portability ---
Author Organization [place] [facility], Main Office Address [address] [place] [address] Care Team Providers Care Dobby Looms Pegger Name Role Phone MARIO LAY Primary Care Provider MARIO LAY Referring Provider Assessment Encounter Date Assessment Date Assessment LastModified by Organization Details LastModified Time 12/29/2022 12/29/2022 Hypertension well controlled continue lisinopril CAD aspirin statin Art consider beta-ruel Steatosis of liver weight reduction GERD Prilosec [id number] r p.r.n. Hyperlipidemia atorvastatin Return to clinic 6 months Smoking history LD CT [id number] Not available 12/29/2022 22:00:34 07/08/2023 07/08/2023 Diagnosis in assessment and plan have been discussed most recent blood work reviewed again he refuses LDCT understands risk of lung cancer with his smoking history and that early detection best case scenario to cure or extend life expectancy follow-up 6 Not available 07/08/2023 20:41:27 Plan of Treatment [...] WILL NOT BE REPOR EVETTE. Not Available [facility] (Lab) [address] [place], [address], 06/30/2022 20:12:56 06/30/20 22 06/30/2022 LIPID PANEL cholesterol 125 mg/dL 140-19 9 low NIH ANDREA NSUS RECOM MENDA TION FOR MANOJ STERO L: ADULT CHILD LOW RISK: <200 <170 BORDE RLINE : <200- 239 ----- HIGH RISK: >240 >200 Not Available [facility] (Lab) [address] [place], [address], 06/30/2022 20:12:56 06/30/2006/30/2022 LIPID PANEL triglyceride s 94 mg/dL 0-150 NIH ANDREA NSUS REPOR T RECOM MENDA TION FOR TRIGL YCERI JEN: ADULT CHILD LOW RISK: <150 ----- BODER LINE: 150-1 99 ----- HIGH RISK: >200 ----- Not Available [facility] (Lab) [address] [place], [address], 06/30/2022 20:12:56 06/30/2006/30/2022 LIPID PANEL HDL cholesterol 59 mg/dL 40- Not Available [facility] (Lab) [address] [place], [address], 06/30/2022 20:12:56 06/30/20 22 06/30/2022 COMPR EHENS DONATO METAB OLIC PANEL carbon dioxide 24 mmol/ L 22-30 Not Available [facility] (Lab) [address] [place], [address], 06/30/2022 20:12:47 06/30/20 22 06/30/2022 COMPR EHENS DONATO METAB OLIC PANEL sodium 136 mmol/ L 137-14 5 low Not Available [facility] (Lab) [address] [place], [address], 06/30/2022 20:12:47 06/30/20 22 06/30/2022 COMPR EHENS DONATO METAB OLIC PANEL potassium 5.6 mmol/ L 3.5-5. 1 high Not Available [facility] (Lab) [address] [place], [address], 06/30/2022 20:12:47 06/30/20 22 06/30/2022 COMPR EHENS DONATO METAB OLIC PANEL chloride 102 mmol/ L 98-107 Not Available [facility] (Lab) [address] [place], [address], 06/30/2022 20:12:47 06/30/20 22 06/30/2022 COMPR EHENS DONATO METAB OLIC PANEL anion gap 15.6 mmol/ L 14-22 Not Available [facility] (Lab) [address] [place], [address], 06/30/2022 20:12:47 06/30/20 22 06/30/2022 COMPR EHENS DONATO METAB OLIC PANEL glucose 94 mg/dL 70-99 Not Available [facility] (Lab) [address] [place], [address], 06/30/2022 20:12:47 06/30/20 22 06/30/2022 COMPR EHENS DONATO METAB OLIC PANEL BUN 10 mg/dL 8-19 Not Available [facility] (Lab) [address] [place], [address], 06/30/2022 20:12:47 06/30/20 22 06/30/2022 COMPR EHENS DONATO METAB OLIC PANEL creatinine 1.10 mg/dL 0.66-1 .25 Not Available [facility] (Lab) [address] [place], [address], 06/30/2022 20:12:47 06/30/20 22 06/30/2022 COMPR EHENS DONATO METAB OLIC PANEL GFR >60 Refer ence Range : [place] ge GFR Healt hy Adult : >60 [...] calcu lator is avail able on the [facility] websi te: https :[email or web address] [email or web address] rg/pr ofess ional s/kdo qi/gf r_cal culat or Not Available [facility] (Lab) [address] [place], [address], 06/30/2022 20:12:47 06/30/20 22 06/30/2022 COMPR EHENS DONATO METAB OLIC PANEL alkaline phosphatase 110 U/L 38-126 Not Available [facility] (Lab) [address] [place], [address], 06/30/2022 20:12:47 06/30/20 22 06/30/2022 COMPR EHENS DONATO METAB OLIC PANEL alanine aminotransfe rase 40 U/L 0-50 Not Available [facility] (Lab) [address] [place], [address], 06/30/2022 20:12:47 06/30/20 22 06/30/2022 COMPR EHENS DONATO METAB OLIC PANEL aspartate aminotransfe rase 41 U/L 15-46 Not Available [facility] (Lab) [address] [place], [address], 06/30/2022 20:12:47 06/30/20 22 06/30/2022 COMPR EHENS DONATO METAB OLIC PANEL bilirubin, total 0.90 mg/dL 0.20-1 .30 Not Available [facility] (Lab) [address] [place], [address], 06/30/2022 20:12:47 06/30/20 22 06/30/2022 COMPR EHENS DONATO METAB OLIC PANEL calcium 9.7 mg/dL 8.4-10 .2 Not Available [facility] (Lab) [address] [place], [address], 06/30/2022 20:12:47 06/30/20 22 06/30/2022 COMPR EHENS DONATO METAB OLIC PANEL total protein 7.1 g/dL 6.3-8. 2 Not Available [facility] (Lab) [address] [place], [address], 06/30/2022 20:12:47 06/30/20 22 06/30/2022 COMPR EHENS DONATO METAB OLIC PANEL albumin 4.5 g/dL 3.0-4. 4 high Not Available [facility] (Lab) [address] [place], [address], 06/30/2022 20:12:47 06/30/20 22 06/30/2022 COMPR EHENS DONATO METAB OLIC PANEL globulin 2.6 g/dL 2.6-4. 2 Not Available [facility] (Lab) [address] [place], [address], 06/30/2022 20:12:47 06/30/20 22 06/30/2022 COMPR EHENS DONATO METAB OLIC PANEL A/G ratio 1.7 ratio 1.0-2. 0 Not Available [facility] (Lab) [address] [place], [address], 06/30/2022 20:12:47 12/30/19 23 12/29/2022 CBC/C OMPLE TE BLD COUNT W/DIF F white blood cells 6.9 x10'3 /uL 4.2-10 .8 Not Available [facility] (Lab) [address] [place], [address], 12/29/2022 18:32:11 12/30/19 23 12/29/2022 CBC/C OMPLE TE BLD COUNT W/DIF F red blood cells 4.58 x10'6 /uL 4.10-5 .80 Not Available [facility] (Lab) [address] [place], [address], 12/29/2022 18:32:11 12/30/19 23 12/29/2022 CBC/C OMPLE TE BLD COUNT W/DIF F hemoglobin 16.0 g/dL 13.2-1 7.0 Not Available [facility] (Lab) [address] [place], [address], 12/29/2022 18:32:11 12/30/19 23 12/29/2022 CBC/C OMPLE TE BLD COUNT W/DIF F hematocrit 47.0 % 39.3-5 0.0 Not Available [facility] (Lab) [address] [place], [address], 12/29/2022 18:32:11 12/30/19 23 12/29/2022 CBC/C OMPLE TE BLD COUNT W/DIF F mean red cell volume 102.6 fL 80.0-9 7.0 high Not Available [facility] (Lab) [address] [place], [address], 12/29/2022 18:32:11 12/30/19 23 12/29/2022 CBC/C OMPLE TE BLD COUNT W/DIF F mean red cell hemoglobin 34.9 pg 27.0-3 3.0 high Not Available [facility] (Lab) [address] [place], [address], 12/29/2022 18:32:11 12/30/19 23 12/29/2022 CBC/C OMPLE TE BLD COUNT W/DIF F mean RBC HGB concentratio n 34.0 g/dL 31.0-3 6.0 Not Available [facility] (Lab) [address] [place], [address], 12/29/2022 18:32:11 12/30/19 23 12/29/2022 CBC/C OMPLE TE BLD COUNT W/DIF F red cell distribution width 13.2 % 11.8-1 5.5 Not Available [facility] (Lab) [address] [place], [address], 12/29/2022 18:32:11 12/30/19 23 12/29/2022 CBC/C OMPLE TE BLD COUNT W/DIF F platelets 174 x10'3 /uL 150-40 0 Not Available [facility] (Lab) [address] [place], [address], 12/29/2022 18:32:11 12/30/19 23 12/29/2022 CBC/C OMPLE TE BLD COUNT W/DIF F mean platelet volume 10.0 fL 9.0-12 .4 Not Available [facility] (Lab) [address] [place], [address], 12/29/2022 18:32:11 12/30/19 23 12/29/2022 CBC/C OMPLE TE BLD COUNT W/DIF F neutrophils 54.3 % 39.0-7 2.0 Not Available [facility] (Lab) [address] [place], [address], 12/29/2022 18:32:11 12/30/19 23 12/29/2022 CBC/C OMPLE TE BLD COUNT W/DIF F lymphocytes 34.0 % 16.0-4 7.0 Not Available [facility] (Lab) [address] [place], [address], 12/29/2022 18:32:11 12/30/19 23 12/29/2022 CBC/C OMPLE TE BLD COUNT W/DIF F monocytes 9.1 % 5.0-12 .0 Not Available [facility] (Lab) [address] [place], [address], 12/29/2022 18:32:11 12/30/19 23 12/29/2022 CBC/C OMPLE TE BLD COUNT W/DIF F eosinophils 1.4 % 1.0-7. 0 Not Available [facility] (Lab) [address] [place], [address], 12/29/2022 18:32:11 12/30/19 23 12/29/2022 CBC/C OMPLE TE BLD COUNT W/DIF F basophils 0.9 % 0.0-2. 0 Not Available [facility] (Lab) [address] [place], [address], 12/29/2022 18:32:11 12/30/19 23 12/29/2022 CBC/C OMPLE TE BLD COUNT W/DIF F immature granulocytes 0.3 % 0.00-0 .50 Not Available [facility] (Lab) [address] [place], [address], 12/29/2022 18:32:11 12/30/19 23 12/29/2022 CBC/C OMPLE TE BLD COUNT W/DIF F neutrophils, absolute count 3.76 x10'3 /uL 1.5-8. 0 Not Available [facility] (Lab) [address] [place], [address], 12/29/2022 18:32:11 12/30/19 23 12/29/2022 CBC/C OMPLE TE BLD COUNT W/DIF F lymphocytes, absolute count 2.35 x10'3 /uL 1.07-3 .43 Not Available [facility] (Lab) [address] [place], [address], 12/29/2022 18:32:11 12/30/19 23 12/29/2022 CBC/C OMPLE TE BLD COUNT W/DIF F monocytes, absolute count 0.63 x10'3 /uL 0.29-0 .99 Not Available [facility] (Lab) [address] [place], [address], 12/29/2022 18:32:11 12/30/19 23 12/29/2022 CBC/C OMPLE TE BLD COUNT W/DIF F eosinophils, absolute count 0.10 x10'3 /uL 0.02-0 .53 Not Available [facility] (Lab) [address] [place], [address], 12/29/2022 18:32:11 12/30/19 23 12/29/2022 CBC/C OMPLE TE BLD COUNT W/DIF F basophils, absolute count 0.06 x10'3 /uL 0.01-0 .08 Not Available [facility] (Lab) [address] [place], [address], 12/29/2022 18:32:11 12/30/19 23 12/29/2022 CBC/C OMPLE TE BLD COUNT W/DIF F immature granulocytes ,absolute 0.02 x10'3 /uL 0.00-0 .05 Not Available [facility] (Lab) [address] [place], [address], 12/29/2022 18:32:11 12/30/19 23 12/29/2022 CBC/C OMPLE TE BLD COUNT W/DIF F nucleated red blood cells 0.0 % -0 Not Available [facility] (Lab) [address] [place], [address], 12/29/2022 18:32:11 12/30/19 23 12/29/2022 CBC/C OMPLE TE BLD COUNT W/DIF F NRBC# 0.00 x10'3 /uL Not Available [facility] (Lab) [address] [place], [address], 12/29/2022 18:32:11 12/30/19 23 12/29/2022 COMPR EHENS DONATO METAB OLIC PANEL sodium 138 mmol/ L 137-14 5 Not Available [facility] (Lab) [address] [place], [address], 12/29/2022 19:38:11 12/30/19 23 12/29/2022 COMPR EHENS DONATO METAB OLIC PANEL potassium 5.3 mmol/ L 3.5-5. 1 high Not Available [facility] (Lab) [address] [place], [address], 12/29/2022 19:38:11 12/30/19 23 12/29/2022 COMPR EHENS DONATO METAB OLIC PANEL chloride 106 mmol/ L 98-107 Not Available [facility] (Lab) [address] [place], [address], 12/29/2022 19:38:11 12/30/19 23 12/29/2022 COMPR EHENS DONATO METAB OLIC PANEL carbon dioxide 23 mmol/ L 22-30 Not Available [facility] (Lab) [address] [place], [address], 12/29/2022 19:38:11 12/30/19 23 12/29/2022 COMPR EHENS DONATO METAB OLIC PANEL anion gap 14.3 mmol/ L 14-22 Not Available [facility] (Lab) [address] [place], [address], 12/29/2022 19:38:11 12/30/19 23 12/29/2022 COMPR EHENS DONATO METAB OLIC PANEL glucose 98 mg/dL 70-99 Not Available [facility] (Lab) [address] [place], [address], 12/29/2022 19:38:11 12/30/19 23 12/29/2022 COMPR EHENS DONATO METAB OLIC PANEL BUN 18 mg/dL 8-19 Not Available [facility] (Lab) [address] [place], [address], 12/29/2022 19:38:11 12/30/19 23 12/29/2022 COMPR EHENS DONATO METAB OLIC PANEL creatinine 1.06 mg/dL 0.66-1 .25 Not Available [facility] (Lab) [address] [place], [address], 12/29/2022 19:38:11 12/30/1912/29/2022 COMPR EHENS DONATO METAB OLIC PANEL GFR >60 Refer ence Range : [place] ge GFR Healt hy Adult : >60 [...] calcu lator is avail able on the [facility] websi te: https :[email or web address] [email or web address] [email or web address] rg/pr ofess ional s/kdo qi/gf r_cal culat or Not Available [facility] (Lab) [address] [place], [address], 12/29/2022 19:38:11 12/30/19 23 12/29/2022 COMPR EHENS DONATO METAB OLIC PANEL alkaline phosphatase 107 U/L 38-126 Not Available [facility] (Lab) [address] [place], [address], 12/29/2022 19:38:11 12/30/19 23 12/29/2022 COMPR EHENS DONATO METAB OLIC PANEL alanine aminotransfe rase 51 U/L 0-50 high Not Available [facility] (Lab) [address] [place], [address], 12/29/2022 19:38:11 12/30/19 23 12/29/2022 COMPR EHENS DONATO METAB OLIC PANEL aspartate aminotransfe rase 37 U/L 15-46 Not Available [facility] (Lab) [address] [place], [address], 12/29/2022 19:38:11 12/30/19 23 12/29/2022 COMPR EHENS DONATO METAB OLIC PANEL bilirubin, total 0.80 mg/dL 0.20-1 .30 Not Available [facility] (Lab) [address] [place], [address], 12/29/2022 19:38:11 12/30/19 23 12/29/2022 COMPR EHENS DONATO METAB OLIC PANEL calcium 9.2 mg/dL 8.4-10 .2 Not Available [facility] (Lab) [address] [place], [address], 12/29/2022 19:38:11 12/30/19 23 12/29/2022 COMPR EHENS DONATO METAB OLIC PANEL total protein 7.4 g/dL 6.3-8. 2 Not Available [facility] (Lab) [address] [place], [address], 12/29/2022 19:38:11 12/30/19 23 12/29/2022 COMPR EHENS DONATO METAB OLIC PANEL albumin 4.3 g/dL 3.0-4. 4 Not Available [facility] (Lab) [address] [place], [address], 12/29/2022 19:38:11 12/30/19 23 12/29/2022 COMPR EHENS DONATO METAB OLIC PANEL globulin 3.1 g/dL 2.6-4. 2 Not Available [facility] (Lab) [address] [place], [address], 12/29/2022 19:38:11 12/30/19 23 12/29/2022 COMPR EHENS DONATO METAB OLIC PANEL A/G ratio 1.4 ratio 1.0-2. 0 Not Available [facility] (Lab) [address] [place], [address], 12/29/2022 19:38:11 12/30/19 23 12/29/2022 LIPID PANEL cholesterol 124 mg/dL 140-19 9 low NIH ANDREA NSUS RECOM MENDA TION FOR MANOJ STERO L: ADULT CHILD LOW RISK: <200 <170 BORDE RLINE : <200- 239 ----- HIGH RISK: >240 >200 Not Available [facility] (Lab) [address] [place], [address], 12/29/2022 19:38:13 12/30/19 23 12/29/2022 LIPID PANEL triglyceride s 58 mg/dL 0-150 NIH ANDREA NSUS REPOR T RECOM MENDA TION FOR TRIGL YCERI JEN: ADULT CHILD LOW RISK: <150 ----- BODER LINE: 150-1 99 ----- HIGH RISK: >200 ----- Not Available [facility] (Lab) [address] [place], [address], 12/29/2022 19:38:13 12/30/1912/29/2022 LIPID PANEL HDL cholesterol 70 mg/dL 40- Not Available [facility] (Lab) [address] [place], [address], 12/29/2022 19:38:13 12/30/19 23 12/29/2022 LIPID PANEL [...] WILL NOT BE REPOR EVETTE. Not Available [facility] (Lab) [address] [place], [address], 12/29/2022 19:38:13 12/30/1912/29/2022 PSA SCREE N PSA medicare screen 1.00 NG/mL 0.00-4 .00 Not Available [facility] (Lab) [address] [place], [address], 12/29/2022 20:00:13 02/01/20 24 02/01/2024 CBC/C OMPLE TE BLD COUNT W/DIF F white blood cells 6.3 x10'3 /uL 4.2-10 .8 Not Available [facility] (Lab) [address] [place], [address], 02/01/2024 13:51:31 02/01/20 24 02/01/2024 CBC/C OMPLE TE BLD COUNT W/DIF F red blood cells 4.51 x10'6 /uL 4.10-5 .80 Not Available [facility] (Lab) [address] [place], [address], 02/01/2024 13:51:31 02/01/20 24 02/01/2024 CBC/C OMPLE TE BLD COUNT W/DIF F hemoglobin 16.0 g/dL 13.2-1 7.0 Not Available [facility] (Lab) [address] [place], [address], 02/01/2024 13:51:31 02/01/20 24 02/01/2024 CBC/C OMPLE TE BLD COUNT W/DIF F hematocrit 47.1 % 39.3-5 0.0 Not Available [facility] (Lab) [address] [place], [address], 02/01/2024 13:51:31 02/01/20 24 02/01/2024 CBC/C OMPLE TE BLD COUNT W/DIF F mean red cell volume 104.4 fL 80.0-9 7.0 high Not Available [facility] (Lab) [address] [place], [address], 02/01/2024 13:51:31 02/01/20 24 02/01/2024 CBC/C OMPLE TE BLD COUNT W/DIF F mean red cell hemoglobin 35.5 pg 27.0-3 3.0 high Not Available [facility] (Lab) [address] [place], [address], 02/01/2024 13:51:31 02/01/20 24 02/01/2024 CBC/C OMPLE TE BLD COUNT W/DIF F mean RBC HGB concentratio n 34.0 g/dL 31.0-3 6.0 Not Available [facility] (Lab) [address] [place], [address], 02/01/2024 13:51:31 02/01/20 24 02/01/2024 CBC/C OMPLE TE BLD COUNT W/DIF F red cell distribution width 13.4 % 11.8-1 5.5 Not Available [facility] (Lab) [address] [place], [address], 02/01/2024 13:51:31 02/01/20 24 02/01/2024 CBC/C OMPLE TE BLD COUNT W/DIF F platelets 170 x10'3 /uL 150-40 0 Not Available [facility] (Lab) [address] [place], [address], 02/01/2024 13:51:31 02/01/20 24 02/01/2024 CBC/C OMPLE TE BLD COUNT W/DIF F mean platelet volume 10.3 fL 9.0-12 .4 Not Available [facility] (Lab) [address] [place], [address], 02/01/2024 13:51:31 02/01/20 24 02/01/2024 CBC/C OMPLE TE BLD COUNT W/DIF F neutrophils 60.8 % 39.0-7 2.0 Not Available [facility] (Lab) [address] [place], [address], 02/01/2024 13:51:31 02/01/20 24 02/01/2024 CBC/C OMPLE TE BLD COUNT W/DIF F lymphocytes 27.2 % 16.0-4 7.0 Not Available [facility] (Lab) [address] [place], [address], 02/01/2024 13:51:31 02/01/20 24 02/01/2024 CBC/C OMPLE TE BLD COUNT W/DIF F monocytes 8.6 % 5.0-12 .0 Not Available [facility] (Lab) [address] [place], [address], 02/01/2024 13:51:31 02/01/20 24 02/01/2024 CBC/C OMPLE TE BLD COUNT W/DIF F eosinophils 2.1 % 1.0-7. 0 Not Available [facility] (Lab) [address] [place], [address], 02/01/2024 13:51:31 02/01/20 24 02/01/2024 CBC/C OMPLE TE BLD COUNT W/DIF F basophils 0.8 % 0.0-2. 0 Not Available [facility] (Lab) [address] [place], [address], 02/01/2024 13:51:31 02/01/20 24 02/01/2024 CBC/C OMPLE TE BLD COUNT W/DIF F immature granulocytes 0.5 % 0.00-0 .50 Not Available [facility] (Lab) [address] [place], [address], 02/01/2024 13:51:31 02/01/20 24 02/01/2024 CBC/C OMPLE TE BLD COUNT W/DIF F neutrophils, absolute count 3.83 x10'3 /uL 1.5-8. 0 Not Available [facility] (Lab) [address] [place], [address], 02/01/2024 13:51:31 02/01/20 24 02/01/2024 CBC/C OMPLE TE BLD COUNT W/DIF F lymphocytes, absolute count 1.71 x10'3 /uL 1.07-3 .43 Not Available [facility] (Lab) [address] [place], [address], 02/01/2024 13:51:31 02/01/20 24 02/01/2024 CBC/C OMPLE TE BLD COUNT W/DIF F monocytes, absolute count 0.54 x10'3 /uL 0.29-0 .99 Not Available [facility] (Lab) [address] [place], [address], 02/01/2024 13:51:31 02/01/20 24 02/01/2024 CBC/C OMPLE TE BLD COUNT W/DIF F eosinophils, absolute count 0.13 x10'3 /uL 0.02-0 .53 Not Available [facility] (Lab) [address] [place], [address], 02/01/2024 13:51:31 02/01/20 24 02/01/2024 CBC/C OMPLE TE BLD COUNT W/DIF F basophils, absolute count 0.05 x10'3 /uL 0.01-0 .08 Not Available [facility] (Lab) [address] [place], [address], 02/01/2024 13:51:31 02/01/20 24 02/01/2024 CBC/C OMPLE TE BLD COUNT W/DIF F immature granulocytes ,absolute 0.03 x10'3 /uL 0.00-0 .05 Not Available [facility] (Lab) [address] [place], [address], 02/01/2024 13:51:31 02/01/20 24 02/01/2024 CBC/C OMPLE TE BLD COUNT W/DIF F nucleated red blood cells 0.0 % -0 Not Available [facility] (Lab) [address] [place], [address], 02/01/2024 13:51:31 02/01/20 24 02/01/2024 CBC/C OMPLE TE BLD COUNT W/DIF F NRBC# 0.00 x10'3 /uL Not Available [facility] (Lab) [address] [place], [address], 02/01/2024 13:51:31 02/01/20 24 02/01/2024 COMPR EHENS DONATO METAB OLIC PANEL sodium 137 mmol/ L 137-14 5 Not Available [facility] (Lab) [address] [place], [address], 02/01/2024 15:16:02 02/01/20 24 02/01/2024 COMPR EHENS DONATO METAB OLIC PANEL potassium 4.6 mmol/ L 3.5-5. 1 Not Available [facility] (Lab) [address] [place], [address], 02/01/2024 15:16:02 02/01/20 24 02/01/2024 COMPR EHENS DONATO METAB OLIC PANEL chloride 105 mmol/ L 98-107 Not Available [facility] (Lab) [address] [place], [address], 02/01/2024 15:16:02 02/01/20 24 02/01/2024 COMPR EHENS DONATO METAB OLIC PANEL carbon dioxide 25 mmol/ L 22-30 Not Available [facility] (Lab) [address] [place], [address], 02/01/2024 15:16:02 02/01/20 24 02/01/2024 COMPR EHENS DONATO METAB OLIC PANEL anion gap 11.6 mmol/ L 14-22 low Not Available [facility] (Lab) [address] [place], [address], 02/01/2024 15:16:02 02/01/20 24 02/01/2024 COMPR EHENS DONATO METAB OLIC PANEL glucose 109 mg/dL 70-99 high Not Available [facility] (Lab) [address] [place], [address], 02/01/2024 15:16:02 02/01/20 24 02/01/2024 COMPR EHENS DONATO METAB OLIC PANEL BUN 14 mg/dL 8-19 Not Available [facility] (Lab) [address] [place], [address], 02/01/2024 15:16:02 02/01/20 24 02/01/2024 COMPR EHENS DONATO METAB OLIC PANEL creatinine 1.08 mg/dL 0.66-1 .25 Not Available [facility] (Lab) [address] [place], [address], 02/01/2024 15:16:02 02/01/20 24 02/01/2024 COMPR EHENS DONATO METAB OLIC PANEL GFR >60 Refer ence Range : [place] ge GFR Healt hy Adult : >60 [...] or ethni c subgr oups, such as Hiswv nics. Outsi de the valid ated britt [...] calcu lator is avail able on the [facility] websi te: https :[email or web address] rg/pr ofess ional s/kdo qi/gf r_cal culat or Not Available [facility] (Lab) [address] [place], [address], 02/01/2024 15:16:02 02/01/20 24 02/01/2024 COMPR EHENS DONATO METAB OLIC PANEL alkaline phosphatase 75 U/L 38-126 Not Available [facility] (Lab) [address] [place], [address], 02/01/2024 15:16:02 02/01/20 24 02/01/2024 COMPR EHENS DONATO METAB OLIC PANEL alanine aminotransfe rase 46 U/L 0-50 Not Available [facility] (Lab) [address] [place], [address], 02/01/2024 15:16:02 02/01/20 24 02/01/2024 COMPR EHENS DONATO METAB OLIC PANEL aspartate aminotransfe rase 40 U/L 15-46 Not Available [facility] (Lab) [address] [place], [address], 02/01/2024 15:16:02 02/01/20 24 02/01/2024 COMPR EHENS DONATO METAB OLIC PANEL bilirubin, total 0.60 mg/dL 0.20-1 .30 Not Available [facility] (Lab) [address] [place], [address], 02/01/2024 15:16:02 02/01/20 24 02/01/2024 COMPR EHENS DONATO METAB OLIC PANEL calcium 9.4 mg/dL 8.4-10 .2 Not Available [facility] (Lab) [address] [place], [address], 02/01/2024 15:16:02 02/01/20 24 02/01/2024 COMPR EHENS DONATO METAB OLIC PANEL total protein 6.7 g/dL 6.3-8. 2 Not Available [facility] (Lab) [address] [place], [address], 02/01/2024 15:16:02 02/01/20 24 02/01/2024 COMPR EHENS DONATO METAB OLIC PANEL albumin 4.2 g/dL 3.0-4. 4 Not Available [facility] [facility] (Lab) [address] [place], [address], 02/01/2024 15:16:02 02/01/20 24 02/01/2024 COMPR EHENS DONATO METAB OLIC PANEL globulin 2.5 g/dL 2.6-4. 2 low Not Available [facility] (Lab) [address] [place], [address], 02/01/2024 15:16:02 02/01/20 24 02/01/2024 COMPR EHENS DONATO METAB OLIC PANEL A/G ratio 1.7 ratio 1.0-2. 0 Not Available [facility] (Lab) [address] [place], [address], 02/01/2024 15:16:02 02/01/20 24 02/01/2024 LIPID PANEL cholesterol 116 mg/dL 140-19 9 low NIH ANDREA NSUS RECOM MENDA TION FOR MANOJ STERO L: ADULT CHILD LOW RISK: <200 <170 BORDE RLINE : <200- 239 ----- HIGH RISK: >240 >200 Not Available [facility] (Lab) [address] [place], [address], 02/01/2024 15:16:04 02/01/20 24 02/01/2024 LIPID PANEL triglyceride s 56 mg/dL 0-150 NIH ANDREA NSUS REPOR T RECOM MENDA TION FOR TRIGL YCERI JEN: ADULT CHILD LOW RISK: <150 ----- BODER LINE: 150-1 99 ----- HIGH RISK: >200 ----- Not Available [facility] (Lab) [address] [place], [address], 02/01/2024 15:16:04 02/01/20 24 02/01/2024 LIPID PANEL HDL cholesterol 78 mg/dL 40- Not Available [facility] (Lab) [address] [place], [address], 02/01/2024 15:16:04 02/01/20 24 02/01/2024 LIPID PANEL [...] WILL NOT BE REPOR EVETTE. Not Available [facility] (Lab) [address] [place], [address], 02/01/2024 15:16:04 02/01/20 24 02/01/2024 PSA SCREE N PSA medicare screen 1.15 NG/mL 0.00-4 .00 Not Available [facility] (Lab) [address] [place], [address], 02/01/2024 15:22:39 02/14/20 24 02/14/2024 TSH thyroid-stim ulating hormone 1.520 uIU/m L 0.465- 4.680 Not Available [facility] (Lab) [address] [place], [address], 02/14/2024 19:08:12 02/14/20 24 02/14/2024 VITAM IN B12 (TRUMAN ZULY ) vb12 372 pg/mL 239-93 1 Not Available [facility] (Lab) [address] [place], [address], 02/14/2024 21:25:36 02/14/20 24 02/14/2024 FOLAT E, SERUM /PLAS MA folate 16.3 NG/mL 2.76-2 0.0 Not Available [facility] (Lab) [address] [place], [address], 02/14/2024 21:25:41 Result Notes None recorded. Problems Name Problem SNOMED Code Status Onset Date Resolution Date Notes Provider Name and Address Organization Details Recorded Time Abnormal urinalysis 661382190 Active Not Available [facility] 4 12:43:41 Steatotic liver disease 984041742 Active 2018 Not Available [facility] 4 12:43:41 Microscopi c hematuria 622621365 Active Not Available [facility] 4 12:43:41 Gastroesop hageal reflux disease 754201570 Active Not Available [facility] 4 12:43:41 Left side sciatica 7811498950431 04 Active 2021 Not Available [facility] 4 12:43:41 Depressive disorder 40227143 Active Not Available [facility] 4 12:43:41 Hypertensi ve disorder 86082322 Active 2016 Not Available [facility] 4 12:43:41 Neuropathy 684247700 Active 2018 Not Available [facility] 4 12:43:41 Malignant neoplasm of urinary bladder 867411551 Active Not Available [facility] 4 12:43:41 Peripheral arterial occlusive disease 866503323 Active Not Available [facility] 4 12:43:41 Coronary atheroscle rosis 696792389 Active Not Available [facility] 4 12:43:41 Hyperlipid emia 59787669 Active Not Available [facility] 4 12:43:41 Essential hypertensi on 04331376 Active Not Available [facility] 4 12:43:41 Diarrhea 43958169 Active Not Available [facility] 4 12:43:41 Polyp of colon 24065347 Active Not Available [facility] 4 12:43:41 Nicotine dependence 55890508 Active 2022 Not Available [facility] 4 12:43:41 Problem Notes None recorded. 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 Procedure [...] Not Available N ot Available Fluzone High-Dose 6781-7862 (PF) 180 mcg/0.5 mL intramuscul ar syringe 08/03 completed Not Available Not Available Not Available Fluzone High-Dose 6306-4287 (PF) 180 mcg/0.5 mL intramuscul ar syringe [...] Updated DateTime 3 170.18 cm 27.4 kg/m2 22195.6 6 g 64 /min 97.9 [degF] 128/78 mm[Hg] Wandy blount RN [place] [facility] 3 10:55:28 Date Recorded Body mass index (BMI) Body height Heart rate Body temperature Body weight Systolic And Diastolic Provider Name and Address Organization Details Last Updated DateTime 2 28 kg/m2 170.18 cm 62 /min 97.3 [degF] 95481.0 3 g 130/70 mm[Hg] Not Available [facility] 3 06:02:27 Date Recorded Body mass index (BMI) Body height Heart rate Body temperature Body weight Systolic And Diastolic Provider Name and Address Organization Details Last Updated DateTime 2 27.9 kg/m2 170.18 cm 70 /min 96.3 [degF] 44941.4 4 g 130/70 mm[Hg] Not Available [facility] 3 06:02:27 Date Recorded Body height Heart rate Body temperature Body weight Systolic And Diastolic Provider Name and Address Organization Details Last Updated DateTime 06/30/2022 170.18 cm 63 /min 97.6 [degF] 68117.7 g 118/74 mm[Hg] Not Available [facility] 3 06:02:27 Date Recorded Body height Body mass index (BMI) Body weight Body temperature Heart rate Systolic And Diastolic Provider Name and Address Organization Details Last Updated DateTime 3 170.18 cm 27.1 kg/m2 77896.4 8 g 98.1 [degF] 65 /min 120/68 mm[Hg] Wandy blount RN [place] [facility] [place] [employer] [facility] 3 10:46:30 Social History Question Answer Notes LastModified by Organization Details LastModified Time Tobacco Smoking Status Former Smoker quit 2014 Not Available [facility] 12/02/2022 05:56:15 Do You Have An Advance Directive? No MIGRATION.030 [id number] Information not available 12/02/2022 Are You Blind Or Do You Have Difficulty Seeing? Yes Wears Glasses MIGRATION.030 397760 Information not available 12/02/2022 What Is Your Level Of Caffeine Consumption? Moderate MIGRATION.030 319785 Information not available 12/02/2022 How Much Tobacco Do You Chew? None MIGRATION.030 803420 Information not available 12/02/2022 In The 14 Days Before Symptom Onset, Have You Had Close Contact With A Laboratory-confi rmed COVID-19 While That Case Was Ill? No MIGRATION.030 082602 Information not available 12/02/2022 In The 14 Days Before Symptom Onset, Have You Had Close Contact With A Person Who Is Under Investigation For COVID-19 While That Person Was Ill? No MIGRATION.030 593601 Information not available 12/02/2022 Are You Deaf Or Do You Have Serious Difficulty Hearing? No MIGRATION.030 522382 Information not available 12/02/2022 What Type Of Diet Are You Following? REGULAR MIGRATION.030 980269 Information not available 12/02/2022 Which Illicit Or Recreational Drugs Have You Used? None MIGRATION.030 252638 Information not available 12/02/2022 What Is The Highest Grade Or Level Of School You Have Completed Or The Highest Degree You Have Received? [id number] MIGRATION.030 937641 Information not available 12/02/2022 Have There Been Any Changes To Your Family Or Social Situation? No MIGRATION.030 190024 Information not available 12/02/2022 What Is The Fluoride Status Of Your Home? Unknown MIGRATION.0301 165033 Information not available 12/02/2022 When Did You Quit Smoking? 6-10yearssincelast cigarette MIGRATION.0301 432888 Information not available 12/02/2022 Are There Any Guns Present In Your Home? Yes Locked Up MIGRATION.0301 782313 Information not available 12/02/2022 Do You Use Insect Repellent Routinely? No MIGRATION.0301 398297 Information not available 12/02/2022 Where Do You Live? [facility] MIGRATION.0301 571275 Information not available 12/02/2022 Do You Have A Medical Power Of Manager Loan? No MIGRATION.0301 826617 Information not available 12/02/2022 What Was The Date Of Your Most Recent Tobacco Screening? 07/08/2023 [email or web address] Information not available 07/08/2023 Have You Ever Been Counseled For Unhealthy Alcohol Use? No MIGRATION.0301 088682 Information not available 12/02/2022 Do You Have Any Pets? No MIGRATION.0301 587366 Information not available 12/02/2022 What Is Your Relationship Status? MIGRATION.0301 857998 Information not available 12/02/2022 Do You Use Your Seat Belt Or Car Seat Routinely? Yes MIGRATION.0301 365565 Information not available 12/02/2022 Do You Have Smoke And Carbon Monoxide Detectors In Your Home? Yes MIGRATION.0301 951511 Information not available 12/02/2022 At What Age Did You Start Smoking Tobacco? 18 MIGRATION.0301 573210 Information not available 12/02/2022 Are You Passively Exposed To Smoke? No MIGRATION.0301 377692 Information not available 12/02/2022 Are There Any Smokers In Your House? No MIGRATION.0301 987363 Information not available 12/02/2022 How Much Tobacco Do You Smoke? No MIGRATION.0301 657043 Information not available 12/02/2022 Do You Use Sunscreen Routinely? Yes MIGRATION.0301 088176 Information not available 12/02/2022 Have You Recently Traveled Abroad? No MIGRATION.0301 651475 Information not available 12/02/2022 Do You Have Difficulty Walking Or Climbing Stairs? No MIGRATION.0301 571828 Information not available 12/02/2022 Sex: Male Functional Status Question Answer Note LastModified by [employer] Details LastModified Time Do you use any illicit or recreational drugs? No MIGRATION.04813 85271 Information not available 12/02/2022 Do you or have you ever used any other forms of tobacco or nicotine? No MIGRATION.52708 79170 Information not available 12/02/2022 What is your level of alcohol consumption? Moderate 1-2 beers daily MIGRATION.02562 05597 Information not available 12/02/2022 Do you or have you ever used smokeless tobacco? Never used smokeless tobacco MIGRATION.81486 90491 Information not available 12/02/2022 Do you have transportation difficulties? No MIGRATION.57986 82684 Information not available 12/02/2022 Are you able to walk? YESWOREST MIGRATION.81329 06148 Information not available 12/02/2022 Do you have difficulty doing errands alone? No MIGRATION.21519 87759 Information not available 12/02/2022 Are you able to care for yourself? Yes MIGRATION.58263 81743 Information not available 12/02/2022 What is your occupation? retired MIGRATION.28476 56899 Information not available 12/02/2022 Do you have difficulty dressing or bathing? No MIGRATION.55085 51559 Information not available 12/02/2022 Do you or have you ever used e-cigarettes or vape? Never used electronic cigarettes MIGRATION.85339 10714 Information not available 12/02/2022 What is your exercise level? Moderate MIGRATION.47847 59961 Information not available 12/02/2022 Mental Status Question Answer Note LastModified by [employer] Details LastModified Time Do you feel stressed (tense, restless, nervous, or anxious, or unable to sleep at night)? [id number] MIGRATION.32385973 26 Information not available 12/02/2022 Do you have difficulty concentrating, remembering or making decisions? No MIGRATION.77069736 26 Information not available 12/02/2022 Family History Relationship Description Onset Age of this Age Resolved Age Notes LastModified by Organization Details LastModified Time Mother Carcinoma of breast 56 MIGRATION.587 [id number] Not available 12/02/2022 05:56:39 Father Congestive heart failure 75 MIGRATION.951 [id number] Not available 12/02/2022 05:56:39 Father Urolithiasis MIGRATION.0 30 6700305 Not available 12/02/2022 05:56:39 Medical History Condition Response NERVE DISEASE Y BLINDNESS N RHEUMATIC FEVER N KIDNEY STONES N BLADDER PROBLEMS N MRSA N OTHER # 1 Y POLIO N LUNG DISEASE/DISORDER N COPD N RADIATION / CHEMOTHERAPY N Other # 2 N BLOOD DISEASES [...] HAVE YOU BEEN HOSPITALIZED OR SEEN IN [facility] IN THE PAST YEAR ? N ATHEROSCLEROSIS [...] high-dose, quadrivalent, PF 3 completed Not Available [facility] 11/05/2023 12:43:41 Influenza, high-dose, trivalent, PF 0 completed Not Available [facility] 11/05/2023 12:43:42 Influenza, high-dose, trivalent, PF 9 completed Not Available [facility] 11/05/2023 12:43:42 Influenza, high-dose, trivalent, PF 9 completed Not Available [facility] 11/05/2023 12:43:41 Influenza, high-dose, trivalent, PF 7 completed Not Available [facility] 11/05/2023 12:43:41 Pneumococcal conjugate PCV 13 5 completed Not Available [facility] 11/05/2023 12:43:41 Influenza, split virus, trivalent, preservative 5 completed Not Available [facility] 11/05/2023 12:43:42 Influenza, high-dose, quadrivalent, PF 2 completed Not Available [facility] 11/05/2023 12:43:41 COVID-19, mRNA, LNP-S, PF, 30 mcg/0.3 mL dose 2 completed Not Available [facility] 11/05/2023 12:43:41 Influenza, high-dose, quadrivalent, PF 1 completed Not Available [facility] 11/05/2023 12:43:41 COVID-19, mRNA, LNP-S, PF, 30 mcg/0.3 mL dose 1 completed Not Available [facility] 11/05/2023 12:43:41 COVID-19, mRNA, LNP-S, PF, 30 mcg/0.3 mL dose 1 completed Not Available [facility] 11/05/2023 12:43:41 influenza, unspecified formulation 6 completed Not Available [facility] 11/05/2023 12:43:41 pneumococcal polysaccharide PPV23 6 completed Not Available [facility] 11/05/2023 12:43:41 Influenza, split virus, trivalent, preservative 4 completed Not Available [facility] 11/05/2023 12:43:42 Past Encounters Encounter ID Performer Location Encounter Start Date Encounter Closed Date Diagnosis/Indication Diagnosis SNOMED-CT Code Diagnosis ICD10 Code Diagnosis Note [id number] Mario Lay MD [facility] [address] [facility] [place] [address] 04/10/2021 00:00:00 04/10/2021 22:47:17 [id number] Mario Lay MD [facility] Internal Med [place] [address] [place] [address] [place] [address] 10/09/2021 00:00:00 10/10/2021 13:46:17 [id number] Mario Lay MD [facility] Internal Med [facility] [address] [place] [address] [address] [place] [address] 02/13/2022 00:00:00 03/15/2022 21:03:07 [id number] Mario Lay MD [facility] Internal Med [place] [address] [place] [address] [place] [address] 03/03/2022 00:00:00 03/21/2022 15:34:25 [id number] Mario Lay MD [facility] Internal Med [place] [address] [place] [address] [place] [address] 06/30/2022 00:00:00 08/02/2022 14:47:03 [id number] Mario Lay MD [facility] Internal Med [place] [address] [place] [address] [place] [address] 12/29/2022 10:46:33 12/29/2022 12:00:12 Coronary atherosclerosis 831026337 I25.10 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 Essential hypertension 48921575 I10 Gastroesop hageal reflux disease 336208295 K21.9 Hyperlipidemia 66677995 E78.5 [id number] Mario Lay MD [facility] Internal Med [place] [address] [place] [address] [place] [address] 07/08/2023 10:34:58 07/08/2023 11:55:50 Essential hypertension 83495135 I10 Gastroesop hageal reflux disease 834921299 K21.9 Hyperlipidemia 34011772 E78.5 Coronary atherosclerosis 533421219 I25.10 Health Concerns Section Related Observation LastModified by Organization Detai ls LastModified Time None Recorded Concern Status LastModified by Organization Details LastModified Time None Recorded Advance Directives Directive N: Payers Insurance Date Sequence Insurance Name Policy Number Policy Barbosa Covered Member ID Barbosa Member ID Guarantor Name 07/05/2023 1 [facility] - MEDICARE COMPLETE PLAN 1 (MEDICARE REPLACEMENT HMO) [id number] Jai Nicole [id number] Jai Nicole Notes Date Note Type Note Provider Name and Address Organization Details Recorded Time 12/30/19 23 text/htm l CAD no chest painSteatosis of liver no signs or symptoms of hepatic decompensationHypertension no headache no dizzinessGERD no nausea no vomitingHyperlipidemia taking the atorvastatin trying to watch low fat dietSmoking history Needs LDCT Mario Lay MD [address], [place], [address], [employer] [facility] [employer] 12/29/2022 22:00:53 07/08/20 23 text/htm l CAD no chest painSteatosis of liver no signs or symptoms of hepatic decompensationHypertension no headache no dizzinessGERD no nausea no vomitingHyperlipidemia taking the atorvastatin trying to watch low fat dietSmoking history Needs LDCT he refuses Mario Lay MD [address], [place], [address], [employer] 07/08/2023 20:41:43
--- OUTSIDE RECORDS SUMMARY | 2025-04-19 02:37 | XMS_ITS | Data Portability ---
Author Organization [facility] Kaylee Address [address] [place] [address] Care Team Providers Care Food Scientist Name Role Phone MARIO LAY Primary Care Provider Assessment Encounter Date Assessment Date Assessment LastModified by Organization Details LastModified Time 07/27/2024 07/27/2024 flu shot today. Blood pressure is well controlled we will continue current therapy diagnosis and assessment and plan follow up in 6 months [email or web address] Not available 08/05/2024 20:40:39 09/25/2024 09/25/2024 we will continue current therapy blood work has been ordered healthy lifestyle care instructions. Not interested in any screenings or immunizations at this time. We will follow up in 4 months [email or web address] Not available 10/07/2024 22:48:46 01/29/2025 01/29/2025 Continue current therapy follow up with az in 4 months all questions answered [email or web address] Not available 01/29/2025 13:38:47 03/14/2025 03/14/2025 Signs and symptoms of incarceration discussed surgical referral versus observation offered right now he wants to just going to wait and see again if he develops worsening pain or signs or symptoms of incarceration he will go to the hospital [email or web address] Not available 03/14/2025 21:51:39 Plan of Treatment Reminders Order Date Submit Date Provider Last Modified By Organization Details Last Modified Time Details Appointments ANY 15 2024 10:15A M Mario Lay MD Not available Not available Not available Lab PSA, serum or plasma 2024 025 [facility], [address], [place], [address], 02/13/2025 12:53:50 lipid panel, serum 2024 025 [employer] [facility], [address], [place], [address], 03/14/2025 11:03:47 CBC w/ auto diff 2024 025 [employer] [facility], [address], [place], [address], 02/09/2025 11:06:32 CMP, serum or plasma 2024 025 [employer] [facility], [address], [place], [address], 03/14/2025 11:03:48 lipid panel, serum 2023 024 [employer] [facility], [address], [place], [address], 10/19/2024 17:16:02 CMP, serum or plasma 2023 024 [employer] [facility], [address], [place], [address], 10/19/2024 17:16:02 CBC w/ auto diff 2023 024 [employer] [facility], [address], [place], [address], 10/19/2024 17:16:02 Referral None record ed. Procedures None record ed. Surgeries None record ed. Imaging None record ed. Medication Orders None record ed. Patient TargetsNo targets recorded. Patient Instructions Encounter Date Encounter Id Patient Instructions Last Modified By Organization Details Last Modified Time 02/10/2024 [id number] advance care planning: care instructions Not available 02/10/2024 22:21:39 Quitting Tobacco : Care Instructions [email or web address] Not available 02/10/2024 22:21:39 Medicare Well[facility] Preventive Checklist [email or web address] Not available 02/10/2024 22:21:39 07/27/2024 [id number] A healthy lifestyle: care instructions [email or web address] Not available 07/27/2024 13:33:03 09/25/2024 [id number] A healthy lifestyle: care instructions [email or web address] Not available 09/25/2024 12:11:22 01/29/2025 [id number] A healthy lifestyle: care instructions [email or web address] Not available 01/29/2025 13:12:33 03/14/2025 [id number] A healthy lifestyle: care instructions [email or web address] Not available 03/14/2025 17:58:16 Quitting Tobacco : Care Instructions [email or web address] Not available 03/14/2025 17:58:16 Reason for Referral [...] Plasm a cholesterol text: 140-19 9 low jyothi stero l Not Available Not Available [...] XR, chest No observ ation record ed. [address] [facility], [place], [address], 03/21/2024 17:57:01 03/18/20 24 03/18/2024 [place], echoc ardio gram No observ ation record ed. [address], [place], [address], 03/21/2024 17:58:08 03/20/20 24 03/20/2024 fernando can cardi olite stres s test (PROC ) No observ ation record ed. [address] [address], [place], [address], 03/21/2024 17:58:19 03/20/20 24 03/20/2024 fernando can cardi olite stres s test (PROC ) No observ ation record ed. [address] [address], [place], [address], 03/21/2024 17:58:29 Result Notes None recorded. Problems Name Problem SNOMED Code Status Onset Date Resolution Date Notes Provider Name and Address Organization Details Recorded Time Essential hypertension 71446380 Active 2023 Mario Lay MD Attn: Marly rolle,[address] [facility], [place], [address], [facility] 4 22:56:32 Screening for malignant neoplasm of prostate Active 2023 Mario Lay MD Attn: Marly rolle,[address] [facility], [place], [address], [place] [facility] 4 22:56:33 Hyperlipidemi a 30570816 Active 2023 Mario Lay MD Attn: Marly rolle,[address] [facility], [place], [address], [facility] 4 22:56:35 Peripheral arterial occlusive disease 752574412 Active 2023 Mario Lay MD Attn: Marly rolle,[address] [facility], [place], [address], [facility] - [facility] 4 22:58:47 Gastroesophag eal reflux disease without esophagitis 641238655 Active 2023 Mario Lay MD Attn: Marly rolle,[address] [facility], [place], [place], [address] [place] [address] 2, [facility] 4 20:39:16 Coronary atheroscleros is 923197371 Active 2023 Mario Lay MD Attn: Marly rolle,[address] [facility], [place], [place], [address] [place] [address] 2, [facility] - [facility] 4 20:39:42 SARS-CoV-2 vaccination declined 5448550825 Active 2023 Mario Lay MD Attn: Marly rolle,[address] [facility], [place], [address], [facility] 4 20:40:56 Problem Notes None recorded. Procedures Surgical History Date Name Laterality Status Provider Name and Address Organization Details Recorded Time Tonsillectomy completed Milla Agosto MA [facility] 01/27/2024 10:36:32 fluoroscopy guided percutaneous transluminal angioplasty of bilateral iliac arteries and insertion of bilateral iliac artery stents with contrast completed Milla Agosto MA [facility] 01/27/2024 10:36:44 Imaging Results None recorded. Procedure [...] Updated DateTime 5 170.18 cm 27.4 kg/m2 74084.3 8 g 84 /min 96 % 96 % 130/74 mm[Hg] [facility] 5 11:32:12 Date Recorded Body height Body mass index (BMI) Body weight Heart rate Oxygen saturation Oxygen saturation in Arterial blood by Pulse oximetry Systolic And Diastolic Provider Name and Address Organization Details Last Updated DateTime 4 170.18 cm 27.3 kg/m2 07678.8 7 g 64 /min 99 % 99 % 130/68 mm[Hg] Milla Triny [facility] 4 12:04:26 Date Recorded Body height Body mass index (BMI) Body weight Heart rate Oxygen saturation Oxygen saturation in Arterial blood by Pulse oximetry Systolic And Diastolic Provider Name and Address Organization Details Last Updated DateTime 5 170.18 cm 27.7 kg/m2 19166.7 7 g 64 /min 95 % 95 % 124/68 mm[Hg] Milla Triny [facility] 5 17:27:14 Date Recorded Body height Body mass index (BMI) Body weight Heart rate Oxygen saturation Oxygen saturation in Arterial blood by Pulse oximetry Systolic And Diastolic Provider Name and Address Organization Details Last Updated DateTime 4 170.18 cm 28.8 kg/m2 07642.5 6 g 63 /min 99 % 99 % 122/74 mm[Hg] [facility] 4 11:10:31 Date Recorded Body height Body mass index (BMI) Body weight Heart rate Oxygen saturation Oxygen saturation in Arterial blood by Pulse oximetry Systolic And Diastolic Provider Name and Address Organization Details Last Updated DateTime 4 170.18 cm 29.3 kg/m2 45833.7 7 g 80 /min 100 % 100 % 124/70 mm[Hg] [facility] 4 11:44:04 Social History Question Answer Notes LastModified by Organizat ion Details LastModified Time Tobacco Smoking Status Current Every Day Smoker seldom cigars Risa Ross [facility], [place] - [facility] 02/10/2024 12:08:51 Do You Have [...] Or The Highest Degree You Have Received? [id number] Information not available 02/10/2024 In The Past [...] 7 Days, How Much Pain Have You [place]? Some Information not available 02/10/2024 In General, [...] Past 7 Days, How Often Have You [place] Sleepy In The Daytime? Never Information not [...] anxious, or unable to sleep at night)? [id number] Information not available 02/10/2024 Family History Relationship [...] Atrial Fibrillation N High Blood Pressure Y Thyroid Problems N Kidney or Bladder Problems N GI Problems N Depression N COPD N Blood Clots N Skin Problems N Anemia N Heart Attack (IA) N Anxiety Disorder N Diabetes N Muscle, Joint, or Bone Problems N Seizures/Epilepsy N Acid Reflux (GERD) Y Cancer N Stroke N Asthma N Allergies N High Cholesterol Y Hepatitis N Liver Disease N Headaches N Osteoporosis N Heart Failure N Immunizations Vaccine Type Date Status Note Provider Nam e and Address Organization Details Recorded Time Influenza, MDCK, quadrivalent, PF 6 completed Risa Bybee null, [place] [facility] 02/09/2024 15:19:18 Influenza, high-dose, quadrivalent, PF 2 completed Risa [place]bee [place] [facility] 02/09/2024 15:19:18 Influenza, high-dose, quadrivalent, PF 0 completed Risa [place] [facility] 02/09/2024 15:19:18 Influenza, high-dose, quadrivalent, PF 1 completed Risa [place] [facility] 02/09/2024 15:19:18 Influenza, high-dose, quadrivalent, PF 3 completed [place] [facility] 02/09/2024 15:19:18 COVID-19, mRNA, LNP-S, PF, 30 mcg/0.3 mL dose 1 completed Risa [place] [facility] 02/09/2024 15:19:18 COVID-19, mRNA, LNP-S, PF, 30 mcg/0.3 mL dose 1 completed Risa Bybee [place], [place] [facility] 02/09/2024 15:19:18 COVID-19, mRNA, LNP-S, PF, 30 mcg/0.3 mL dose, scarlett-sucrose 2 completed Risa Ross null, [place] [facility] 02/09/2024 15:19:18 pneumococcal polysaccharide PPV23 [...] completed Mario Lay MD Attn: Accounting,[address] [place], [address], [place] [facility] 08/05/2024 20:36:24 Tdap 5 completed Neris Jackman MA null, [place] [facility] 03/14/2025 17:44:21 Past Encounters Encounter ID Performer Location Encounter Start Date Encounter Closed Date Diagnosis/Indication Diagnosis SNOMED-CT Code Diagnosis ICD10 Code Diagnosis Note [id number] Mario Lay MD [facility] - Brenda Rush [address] [place] [address] 01/27/2024 10:13:03 01/27/2024 11:26:35 Essential hypertension 01332823 I10 Screening for malignant neoplasm of prostate 828078293 Z12.5 Hyperlipidemia 34716647 E78.5 Gastroesop hageal reflux disease without esophagitis 089605710 K21.9 Peripheral arterial occlusive disease 620134403 I73.9 [id number] Mario Lay MD [facility] [place] [facility] [place] [address] [place] [address] 02/10/2024 11:38:40 02/10/2024 12:38:31 Adult health examination 398635396 Z00.00 Health Risk Assessment collected and reviewed [id number] Mario Lay MD [facility] [place] [address] [place] [address] 07/27/2024 10:36:24 07/27/2024 11:41:54 Body mass index 25-29 - overweight 528060423 Z68.28 Overweight 627742750 E66 .3 Administra tion of influenza vaccine 37372573 Z23 Essential hypertension 60683022 I10 Gastroesop hageal reflux disease without esophagitis 930862812 K21.9 Hyperlipidemia 25863415 E78.5 Coronary atherosclerosis 858418171 I25.10 SARS-CoV-2 vaccination declined 4571784531 Z28.21 [id number] Mario Lay MD [facility] [place] [address] [place] [address] 09/25/2024 11:31:59 09/25/2024 12:38:13 Body mass index 25-29 - overweight 604093150 Z68.29 Overweight 711362356 E66 .3 Essential hypertension 45618156 I10 Hyperlipidemia 01208830 E78.5 Gastroesop hageal reflux disease without esophagitis 852376065 K21.9 Coronary atherosclerosis 775238501 I25.10 [id number] Mario Lay MD [facility] [place] [facility] [place] [address] [place] [address] 01/29/2025 10:59:50 01/29/2025 11:54:34 Overweight in adulthood with body mass index of 25 or more but less than 30 333852705 Z68.27 Overweight 321521708 E66 .3 Essential hypertension 11850695 I10 Hyperlipidemia 80714411 E78.5 Screening for malignant neoplasm of prostate 232850761 Z12.5 Gastroesop hageal reflux disease without esophagitis 542225394 K21.9 Coronary atherosclerosis 174226226 I25.10 Peripheral arterial occlusive disease 668002342 I73.9 [id number] Mario Lay MD [facility] [address] [place] [address] 03/14/2025 16:41:57 03/14/2025 17:40:08 Smoker 14998080 F17.200 Overweight in adulthood with body mass index of 25 or more but less than 30 883810210 E66.3 Z68.27 Tetanus to xoid vaccination given 7338195721 01482 Z23 Right inguinal hernia 23 2404707 K40.90 Health Concerns Section Related Observation LastModified by Organization Detai ls LastModified Time None Recorded Concern Status LastModified by Organization Details LastModified Time None Recorded Advance Directives Directive N: Payers Insurance Date Sequence Insurance Name Policy Number Policy Barbosa Covered Member ID Barbosa Member ID Guarantor Name 03/14/2025 1 [facility] (MEDICARE REPLACEMENT/A DVANTAGE - HMO) [id number] Jai Nicole [id number] Jai Nicole Notes Date Note Type Note [...] home Mario Lay MD Attn: Accounting[address] [place], [address], [facility] 02/10/2024 22:21:42 07/27/2024 text/html hypertension no headache or dizziness dyslipidemia he is taking his atorvastatin without side effects. GERD has been stable at a hospitalization for some chest pain couple of months ago was seen by Cardiology was told that he has probably panic disorder he has had nothing since dyslipidemia taking his atorvastatin without any problems his GERD has been stable with [id number] Prevacid Mario Lay MD Attn: Accounting[address] [place], [address], [facility] 08/05/2024 20:41:21 09/25/2024 text/html interval history chest pain stress test negative feels fine hypertension no headache or dizziness blood pressure 124/70. Hyperlipidemia is taking his atorvastatin and he was trying to follow a low-fat diet. His GERD has been stable on [id number] Prevacid CAD no angina or anginal equivalents and as stated he had the episode there he had a stress test that was negative. Overweight needs some help shedding a few lb Mario Lay MD Attn: Accounting[address] [place], [address], [facility] 10/07/2024 22:57:03 01/29/2025 text/html 78-year-old with hypertension hyperlipidemia GERD CAD with stent comes in for follow-up of medical problems CAD no chest pain GERD no nausea or vomiting hyperlipidemia does take his medication try to follow low-fat diet hypertension no headache or dizziness. Does smoke occasional cigar he will take Prevacid from time to time [id number] and he also uses aspirin in addition to his lisinopril and atorvastatin blood counts have been stable with regards to his anemia DIONICIO Massey, [place] - [facility] 01/29/2025 17:23:35 03/14/2025 text/html Pain right groin couple of weeks no trauma it is not getting worse [id number] Mario Lay MD Attn: Accounting[address] [facility], [place], [address], [facility] 03/14/2025 21:52:09
--- NOTE | 2025-04-19 07:15 | WPDHPUPDATE1 ---
History and Physical Update Update Date/Time: 04/19/25 07:15 History and Physical has been reviewed, including an updated exam of the patient. There are NO changes in the patient's condition. Risks, benefits, and alternatives have been discussed and questions answered. Patient agrees to proceed with procedure.
[2025-04-19] MEDS: ACETAMINOPHEN 500 MG TABLET 1000 MG PO (08:16)
[2025-04-19] MEDS: LACTATED RINGERS 1,000 ML 30 ML IV CONT ×2 (08:25→12:24)
[2025-04-19] MEDS: KETOROLAC 15 MG/ML VIAL (*BKC) IV PUSH (08:27)
--- NOTE | 2025-04-19 09:15 | P.PNAN_ITS ---
Anes - Initial Pre Proc Eval Procedure: Operation Date: 04/19/25 09:30 Proposed Procedures p Robotic Assisted Right Inguinal Hernia Repair with Mesh - Michelle Nolasco MD Date/Time: 04/19/25 09:15 Surgeon: Michelle Nolasco MD Pre Op Diagnosis: Right Inguinal Hernia Patient Data Age: 79 Gender: M Height: 1.7 m Weight: 79 kg Last Vital Signs Temp 98.1 F 04/19/25 07:32 Pulse 56 L 04/19/25 07:32 Resp 20 04/19/25 07:32 BP 112/64 04/19/25 07:32 Pulse Ox 100 04/19/25 07:32 O2 Del Method Room Air 04/19/25 07:32 Allergies Allergy/AdvReac Type Severity Reaction Status Date / Time No Known Allergies Allergy Verified 04/12/25 09:19 Home Medications ?Medication ?Instructions ?Recorded ?Confirmed ?Type atorvastatin 40 mg tablet 40 mg PO DAILY 11/05/20 04/19/25 History lansoprazole 15 mg capsule,delayed 15 mg PO DAILY 11/05/20 04/19/25 History release (Prevacid) lisinopril 20 mg tablet 20 mg PO DAILY 11/05/20 04/19/25 History Patient hx anesthesia problems: none Family hx anesthesia problems: none Results Review: All pre-operative results and documents have been reviewed as part of the pre-operative evaluation. [facility] Past Medical History Medical History CAD (coronary artery disease) Hyperlipidemia GERD (gastroesophageal reflux disease) Smoker HTN (hypertension) Family History Family History Mother Breast cancer Sibling History of blood clots Father Congestive heart failure Social History Social History Smoking packs per day: 1 Smoking cigarettes per day: 20.0 Years smoked: 34 Smoking pack-years: 34.00 Smoking status: Former smoker Tobacco type: cigarettes and cigars Smoking end date: 10/04/98 Additional smoking assessment comments: Smokes 2 Cigars a day currently Alcohol intake: current Drinks per week: 14 Substance use: current Substance use type: marijuana Other substance usage details: smoke it weekly Do You Feel Safe in your Home?: Yes Lack of Transportation: No Lack of Food: Never True Current Housing: I Have Housing Concerned About Future Housing: No Difficulty Paying Gas/Electric Bills: No Difficulty Paying for Meds: No Currently Unemployed: No Education: High School Diploma/GED Difficulty w/ Childcare or Family Care: No Living arrangements: with family Additional living arrangements comments: Gender identity (if verbalized by the patient): Male Spiritual care concerns: No Anes - Eval Final PreProcedure Day of Procedure 04/19/25 09:15 Patient weight: obese Lungs: normal air movement Airway: Mallampati scale class II Neurological: alert and oriented Last oral intake: >/= 8 hours ASA classification: III Emergent: no Anesthetic plan: proceed Anesthesia type and monitoring: general ETT and standard monitoring Results Review: All pre-operative results and documents have been reviewed as part of the pre- operative evaluation. HTN, hyperlipidemia, cigar smoker. Pt had stress test 2023 without ischemia. Informed Consent: The patient's anesthetic plan and its attendant risks and benefits were discussed with the patient/family/POA. Questions were solicited and answers provided to the satisfaction of the patient/family/POA.
[2025-04-19] MEDS: ceFAZolin 2 GM in SODIUM CHLORIDE 0.9% IV 50 ML 100 ML IVPB (09:34)
[2025-04-19] MEDS: BUPIVACAINE/EPINEPHRINE 0.5% 50 ML VIAL 30 ML INFILTRATE (10:11)
--- NOTE | 2025-04-19 11:07 | W.PM.PROC2 ---
Procedure Note - Detailed Date of Procedure 04/19/25 Pre-op Diagnosis Right Inguinal Hernia Post-op Diagnosis Same Procedure Performed robotic assisted right inguinal hernia repair with mesh Surgeon Michelle Nolasco MD Anesthesia General and Local Indications 79-year-old male with progressively worsening right inguinal hernia over the last few months Findings Pantaloon right inguinal hernia Description of Procedure Patient was brought into the operating room and placed in the supine position. After adequate induction of general anesthesia, the patient was prepped and draped in normal sterile fashion. A time-out was then done to verify the patient's identity, as well as the procedure being performed. Began by making a 8 mm incision in the supraumbilical region, a Veress needle was then placed into the peritoneal cavity. CO2 gas was then insufflated and after adequate pneumoperitoneum was achieved, the Veress needle was removed. I then placed an 8 mm trocar through this incision. I then placed the endoscope through this trocar site and under direct visualization placed 2 further 8 mm ports in the right and left mid abdomen. The [employer] robot was then docked to the 3 trocar sites. I then scrubbed out and went to the robotic console. Upon examining the pelvis, it was noted that the patient had a large right inguinal hernia. The left side was examined and no hernia defect was noted. I began by making a preperitoneal flap approximately 6 cm superior to the defect. This flap was carried medially past the umbilical ligaments in laterally to the transversalis. It then began dissection of my medial compartment taking this down to the pubic tubercle. A large direct defect was noticed at this point. Using careful dissection was able to reduce this large direct hernia which contained a large amount of preperitoneal fat. I then began the lateral dissection taking this down to the transversalis fascia. Once these compartments were achieved, I began dissection around the cord structures. A small indirect hernia was noted at this point. Using careful dissection, was able to reduce indirect hernia sac off the cord structures. Once this was adequately done, I went ahead and placed a large piece of 3D Max mesh into the abdominal cavity. The mesh was carefully positioned, centering the center of the mesh over the larger direct defect. Once this was done, was very satisfied with our repair. Using 3-0 Vicryl sutures, I tacked the mesh medially to Giancarlo's ligament. Two lateral sutures were placed from the mesh to the transversalis fascia. I then closed the peritoneal flap with a running 2.0 V Lock suture. The abdomen was then desufflated, and all ports were removed. All incisions were then closed with the 4.0 monocryl suture. Dermabond was placed on each wound. The patient tolerated the procedure well, was extubated in the operating room postoperatively, and will now be transferred to the recovery room in stable condition. Implants large 3DMax mesh Estimated Blood Loss 10 Drains No Packing No Pathology None sent Complications No immediate complications Condition Stable Disposition PACU [facility] Billing Surgery - Charge Forward: Surgery Billing
[2025-04-19] MEDS: fentaNYL CITRATE INJ (*CRX) 100 MCG/2 ML VIAL 25 MCG IV PUSH ×4 (11:49→12:20)
== END 2025-04-19 13:30 | disposition home or self-care (01) ==
PROVIDERS: PCP Internal Medicine; Visit Provider Surgery
PROC: 8E0Y4CZ Robotic Assisted Procedure of Lower Extremity, Percutaneous Endoscopic Approach (ICD-10-PCS; CPT 49650; principal; 2025-04-19 09:30)
DX: K40.90 Unilateral inguinal hernia, without obstruction or gangrene, not specified as recurrent (principal); F17.290 Nicotine dependence, other tobacco product, uncomplicated; F12.90 Cannabis use, unspecified, uncomplicated; E66.9 Obesity, unspecified; Z68.27 Body mass index [BMI] 27.0-27.9, adult
CPT/HCPCS: 49650; S2900; J0690; A9270; C1781; J1100; J1885; J2405; J2704; J3010; J7120